=== PATIENT | female | born 1950 | race Caucasian/White ===

== ENCOUNTER → 2017-08-27 | Outpatient (CLI) | payer OTHER ==
--- NOTE | 2017-08-27 12:29 | MAMMOGRAPHY REPORT ---
BILATERAL DIGITAL SCREENING MAMMOGRAM TOMOSYNTHESIS WITH CAD: 08/27/2017 CLINICAL HISTORY: Asymptomatic. Personal history of breast cancer. TECHNIQUE: Breast tomosynthesis in addition to standard 2D mammography was performed. Current study was also evaluated with a Computer Aided Detection (CAD) system. COMPARISON: Comparison is made to exams dated: 09/18/2015 mammogram, 11/15/2013 mammogram, 01/01/2012 mammogram, 03/28/2010 mammogram - [facility], 07/11/2008, and 03/04/2007. BREAST COMPOSITION: There are scattered areas of fibroglandular density in both breasts. FINDINGS: No suspicious masses, calcifications, or areas of architectural distortion are noted in ei ther breast. There has been no significant interval change compared to prior exams. There are stable post surgical changes in the right superior breast from prior lumpectomy. Scattered benign-appearin g calcifications at the lumpectomy bed are stable dating back to at least the 2011 exam. A linear sc ar marker denotes a scar on the right superior breast. IMPRESSION: ACR BI-RADS CATEGORY 2: BENIGN There is no mammographic evidence of malignancy. A 1 year screening mammogram is recommended. The pa tient will receive written notification of the results. Approximately 10% of breast cancers are not detected with mammography. A negative mammographic report should not delay biopsy if a clinically suggestive mass is present. Krysten Holbrook M.D. /:08/27/2017 10:28:03 Truck Safety Inspector: Allyssa CAMPBELL)(Fabiano), [facility] letter sent: Normal 1/2 BI-RADS Code: ACR BI-RADS Category 2: Benign
== END | disposition home or self-care (01) ==
LOC: C.MAMM 09:53
PROVIDERS: ATTEND Obstetrics & Gynecology
DX: Z12.31 Encounter for screening mammogram for malignant neoplasm of breast (principal); Z85.3 Personal history of malignant neoplasm of breast

== ENCOUNTER 2024-04-28 14:52 | Inpatient (IN) ==
--- NOTE | 2024-04-28 15:02 | ED Triage Note ---
Date of Service April 28, 2024 Provider in Triage Author: Bobby Rice History of Present Illness This patient was briefly evaluated while in triage. An abbreviated physical exam was performed. This patient is a 73-year-old Female who presents to the ED for evaluation of perforated colon. Patient has been constipated for the past week. She started to feel sick on Thursday, with increasing lower abdominal pain over the past few days. The patient was seen by her PCP this morning. Patient does not had a colonoscopy in the past 20 years. Physical Exam CONSTITUTIONAL: Healthy and well nourished. Patient appears in mild discom fort. HEENT: No scleral icterus or conjunctival injection. RESPIRATORY: Clear to auscultation bilaterally with no wheezing, crackles, rhonchi or stridor. CARDIOVASCULAR: Regular rate and rhythm with no murmurs, rubs or gallops. GASTROINTESTINAL: Bowel sounds present in all quadrants. Patient has tenderness to palpation of the left lower quadrant. INTEGUMENTARY: No rash or other significant dermatologic conditions noted. HEMATOLOGIC: No ecchymosis or petechiae. PSYCHIATRIC: Positive affect. NEUROLOGIC: No focal neurologic deficits noted. Initial orders for labs and / or imaging were placed and patient was placed in the waiting area until a bed is available. Please see further documentation for the full ED course.
--- NOTE | 2024-04-28 15:13 | Emergency Department Note ---
Impression & Plan Bowel perforation, Pneumoperitoneum, Abdominal pain, MEGAN (acute kidney injury) ED Provider Note NAME: CORINNA BOBBY AGE: 73 SEX: F : 1950 ARRIVES VIA: Walk-In INFORMANT: Patient, ED PROVIDER(S): Kristofer Izaguirre DO CHIEF COMPLAINT: Abdominal pain HPI: The patient is a 73-year-old female who presented to the emergency department for an evaluation of abdominal pain. The patient started with abdominal pain over the course of the last few days. Before that she did have constipation since last Thursday. She also had some URI symptoms. She is been having worsening pain especially over the last 24 hours so she went to see her family doctor. The patient was evaluated by her family doctor and was sent to the hospital for a CAT scan of the abdomen. She was sent directly to the emergency department because of an abnormality on CAT scan. ROS: See above HPI for pertinent positives & negatives. A total of 10 systems reviewed and were otherwise negative. PAST MEDICAL HISTORY: See Below PAST SURGICAL HISTORY: See Below FAMILY HISTORY: See Below SOCIAL HISTORY: See Below HOME MEDICATIONS: See Below ALLERGIES: See Below VITALS: See Below PHYSICAL EXAMINATION: GENERAL: The patient is awake and alert. The patient is very anxious and appears to be uncomfortable. EYES: The conjunctivae are clear. The pupils are round and reactive. EARS, NOSE, MOUTH AND THROAT: The nose is without any evidence of any deformity. NECK: The neck is nontender and supple. RESPIRATORY: Normal respiratory effort is noted there is no evidence of wheezing rhonchi or rales CARDIOVASCULAR: Regular rate and rhythm noted there no murmurs rubs or gallops normal S1 normal S2. GASTROINTESTINAL: The abdomen is distended. There is diffuse guarding to palpation. MUSCULOSKELETAL/EXTREMITIES: There is no evidence of gross deformity full range of motion is noted in the hips and shoulders. SKIN: There is no obvious evidence of any rash. There are no petechiae, pallor or cyanosis noted. NEUROLOGIC: Patient is awake alert and oriented x3 MEDICAL DECISION MAKING: The patient is a 73-year-old female who presented to the emergency department for an evaluation of abdominal pain. The patient was having constipation initially but then had a worsening of her condition over the course the last 48 hours. The patient had a CAT scan which did show signs of bowel perforation. The patient was treated with IV fluids and IV pain medication. She was also started on IV antibiotics. I discussed the patient's laboratory and radiographic studies with her. I discussed her condition with the on-call general surgeon. She was evaluated in the emergency department and was felt to be a good candidate for operative management. The patient was agreeable with this plan. She was taken to the OR by surgery Triage Nursing notes reviewed. Prior medical records reviewed Vital Signs: reviewed and remarkable for no significant abnormalities Differential diagnosis: Etiologies such as appendicitis, diverticulitis, obstruction, inflammatory bowel disease, renal colic, PUD, biliary pathology, pancreatitis, mesenteric ischemia, aortic pathology, infections, genitourinary, UTI, perforated viscus, as well as others were entertained. ER treatment provided: See below Diagnostics interpreted by me: ECG: EKG was obtained in the emergency department. My interpretation is normal sinus rhythm at 91 bpm. There is no ectopy. There is no acute ST segment abnormalities noted. This was compared to a tracing from January 09, 2003. No significant changes were noted. Cardiac Monitoring: An order was placed for continuous cardiac monitoring. The monitor shows a rate of 90 bpm with sinus rhythm. Laboratory studies: As stated above and show below. Imaging studies: See below. Radiographic imaging was reviewed by myself Consultation(s): I discussed this case with Shameka Pavon who is on-call for general surgery. She has agreed to evaluate the patient in the emergency department Past Med/Surg History Problem List (Updated 04/28/24 @ 18:19 by Kristofer Izaguirre DO) MEGAN (acute kidney injury) (Acute) Abdominal pain (Acute) Bowel perforation (Acute) Pneumoperitoneum (Acute) No pertinent past medical history Medical History History of COVID-19 3-4 yr ago. Situational anxiety don't like going to [facility]. History of breast cancer 20 yr ago/ sx , chemo and radiation High blood pressure Surgical History [place] teeth removed History of colonoscopy History of lumpectomy of right breast Social History Smoking Status: Former smoker Tobacco Type: Cigarettes Hx Substance Use: No Preferred Language: Brazilian Communication Ability: Effective Client Specialist Required: No Beliefs That Will Affect Care: None Current Living Situation: Spouse Feels Safe at Home: Yes Assistive Devices: Glasses Allergies Allergies Allergy/AdvReac Type Severity Reaction Status Date / Time latex Allergy Unknown little red Verified 10/06/23 09:28 itchy bumps Penicillins Allergy Unknown i was Verified 10/06/23 09:28 young, think itchy , swelling ? Home Meds Home Medications Medication Instructions Recorded Confirmed hydrochlorothiazide 12.5 mg capsule 12.5 mg PO QAM 03/26/21 10/06/23 zolpidem 5 mg tablet 5 mg PO UD PRN Sleep 03/26/21 10/06/23 apple cider vinegar 300 mg tablet 0 mg PO DAILY 09/24/23 10/06/23 cholecalciferol (vitamin D3) 25 50 mcg PO DAILY 09/24/23 10/06/23 mcg (1,000 unit) tablet (Vitamin D3) cinnamon bark 500 mg capsule 0 mg PO DAILY 09/24/23 10/06/23 (Cinnamon) garlic 400 mg tablet,delayed 0 mg PO DAILY 09/24/23 10/06/23 release magnesium 1 tab PO DAILY 09/24/23 10/06/23 resveratrol 50 mg capsule 0 mg PO DAILY 09/24/23 10/06/23 turmeric 400 mg capsule 500 mg PO DAILY 09/24/23 10/06/23 vitamin B complex 1 cap PO DAILY 09/24/23 10/06/23 vitamin E 400 unit tablet 0 mg PO DAILY 09/24/23 10/06/23 Results & Data (ED) Vital Signs Vital Signs - 24 hr 04/28/24 14:59 04/28/24 15:06 04/28/24 15:56 Temperature 36.6 C Temperature Source Temporal Artery Scan Pulse Rate 85 88 91 H Pulse Rate [Apical] Pulse Rhythm Regular Pulse Rhythm [Apical] Pulse Strength [Apical] Respiratory Rate 16 16 Respiratory Effort / Characteristics Non-Labored Respiratory Depth Normal Respiratory Pattern Blood Pressure 117/69 Blood Pressure [Right Arm] Blood Pressure Mean 85 Blood Pressure Mean [Right Arm] Blood Pressure Position [Right Arm] Pulse Oximetry 98 93 Oxygen Delivery Method Room Air Room Air Sepsis Recent Fever Within 48 Hours No Sepsis New/Unexplained Change in Mental Status N/A Sepsis Action Taken by Nursing No Action Required 04/28/24 15:56 04/28/24 16:15 Temperature 37.1 C Temperature Source Oral Pulse Rate Pulse Rate [Apical] 87 90 Pulse Rhythm Pulse Rhythm [Apical] Regular Regular Pulse Strength [Apical] Normal Normal Respiratory Rate 16 25 H Respiratory Effort / Characteristics Non-Labored Spontaneous Non-Labored Spontaneous Respiratory Depth Normal Normal Respiratory Pattern Regular Regular Blood Pressure Blood Pressure [Right Arm] 138/71 128/71 Blood Pressure Mean Blood Pressure Mean [Right Arm] 93 90 Blood Pressure Position [Right Arm] Sitting Semi-fowlers Pulse Oximetry 94 93 Oxygen Delivery Method Room Air Room Air Sepsis Recent Fever Within 48 Hours Sepsis New/Unexplained Change in Mental Status Sepsis Action Taken by [facility] Medications Current Medication List: was personally reviewed by me Laboratory Data Attestation: I reviewed the patient's lab results. 04/28/24 15:31 04/28/24 15:31 Lab Results 04/28/24 Range/Units 15:31 WBC 7.49 (4.8-10.8) K/ul RBC 4.55 (4.20-5.40) M/uL Hgb 14.0 (12.0-16.0) g/dl Hct 39.3 (37.0-47.0) % MCV 86.4 (80.0-100.0) fL MCH 30.8 (25.0-34.0) pg MCHC 35.6 (32.0-36.0) g/dL RDW Std Deviation 41.1 (36.4-46.3) fL RDW Coeff of Anahi 13.1 (11.5-14.5) % Plt Count 295 (130-400) K/uL MPV 10.6 (9.4-12.4) fL Immature Gran % (Auto) 0.1 % Neut % (Auto) 90.1 % Lymph % (Auto) 4.5 % [place] % (Auto) 4.4 % Eos % (Auto) 0.8 % Baso % (Auto) 0.1 % Neut # (Auto) 6.74 H (1.40-6.50) K/uL Lymph # (Auto) 0.34 L (1.20-3.40) K/uL [place] # (Auto) 0.33 (0.11-0.59) K/uL Eos # (Auto) 0.06 (0.00-0.50) K/uL Baso # (Auto) 0.01 (0.00-0.20) K/uL Immature Gran # (Auto) 0.01 (0.01-0.20) K/uL Toxic Granulation 1+ Toxic Vacuolation 2+ Dohle Bodies 1+ PT 11.7 (9.0-12.0) Seconds INR 1.1 (0.9-1.1) Sodium 126 L (136-145) mmol/L Potassium 3.5 (3.5-5.1) mmol/L Chloride 87 L (98-107) mmol/L Carbon Dioxide 23 (21-32) mmol/L Anion Gap 16 H (3-11) BUN 60 H (6-23) mg/dl Creatinine 3.33 H (0.6-1.2) mg/dl Est Cr Clr Drug Dosing Not Reportable Est GFR ( Amer) 15.1 ml/min Est GFR (Non-Af Amer) 13.0 ml/min BUN/Creatinine Ratio 18.0 (10-20) Glucose 125 H (70-99(Fasting)) mg/dl Calcium 8.2 L (8.6-10.3) mg/dl Total Bilirubin 0.5 (0.2-1.0) mg/dl AST 17 (13-39) U/L ALT 11 (7-52) U/L Alkaline Phosphatase 82 (34-104) U/L Troponin I High Sens 20.5 H (0-14) pg/ml Total Protein 7.0 (6.0-8.3) gm/dl Albumin 3.0 L (3.4-5.0) gm/dl Globulin 4.0 (2.5-4.0) gm/dl Albumin/Globulin Ratio 0.8 L (0.9-2) Lipase < 3 L (11-82) U/L Administered Medications Fentanyl Citrate (Fentanyl Citrate Pf 100 Mcg/2 Ml Vial) 50 mcg IV Q15M PRN PRN Reason: Pain Stop: 05/12/24 15:05 Last Admin: 04/28/24 15:40 Dose: 50 mcg Documented By: KEATON Discontinued Medications Sodium Chloride (Nss) 1,000 mls @ 999 mls/hr IV .Q1H1M STA Stop: 04/28/24 16:06 Last Admin: 04/28/24 15:40 Dose: 999 mls/hr Documented By: KEATON Cefoxitin Sodium (Mefoxin) 2,000 mg in 60 mls @ 100 mls/hr IV NOW STA; Protocol Stop: 04/28/24 15:41 Last Admin: 04/28/24 15:39 Dose: 100 mls/hr Documented By: KEATON Ondansetron HCl (Ondansetron Inj 2 Mg/Ml 2 Ml Vial) 4 mg IV NOW STA Stop: 04/28/24 15:07 Last Admin: 04/28/24 15:40 Dose: 4 mg Documented By: KEATON Discharge Plan Visit Data Chief Complaint: Referred by Doctor Stated Complaint: PERFORATED BOWEL ED Provider: Kristofer Izaguirre Discharge Problem: Bowel perforation, Pneumoperitoneum, Abdominal pain, MEGAN (acute kidney injury) Patient Disposition: Admitted As Inpatient Discharge Instructions Interventions: ED Discharge Assessment Last Done: 04/28/24 16:13 Discharge Problem: Abdominal pain Qualifiers: Abdominal location: generalized Qualified Code(s): R10.84 - Generalized abdominal pain
[2024-04-28] MEDS: cefOXitin 2,000 MG/60 ML BAG IV STA (15:39)
[2024-04-28] MEDS: fentaNYL citrate PF 100 MCG/2 ML VIAL IV PRN (15:40)
[2024-04-28] MEDS: ONDANSETRON INJ 2 MG/ML 2 ML VIAL IV STA (15:40)
[2024-04-28] MEDS: SODIUM CHLORIDE 0.9% 1,000 ML IV STA (15:40)
--- NOTE | 2024-04-28 15:42 | History & Physical Report ---
Date of Service April 28, 2024 Assessment & Plan (1) Pneumoperitoneum: Plan: This is a 73y F with PMH of HTN who presents to the [facility] ED on 04/28/24 with complaints of abdominal pain over the last couple of days. This is associated with chills, nausea/vomiting, and bloating. Her symptoms worsened prompting her to see her PCP today who ordered an outpatient CT scan of the abdomen. The CT a/p was obtained that revealed findings are concerning for bowel perforation with free peritoneal stool and pneumoperitoneum. This is compatible with a colonic perforation, likely in the sigmoid colon. Some fluid collections appear partially encapsulated compatible with early abscess formation. On examination patient's abdomen is distended, diffusely tender, with + guarding. Labs are currently pending. Vital signs are stable. Given history/exam and imaging consistent with concern for pneumoperitoneum with concern for sigmoid perforation we will recommend proceeding with surgical intervention. We will book her for ex-lap, with possible bowel resection, possible ostomy creation, and washout. Patient agreeable with the plan. Keep NPO with IVF and IV abx. Dr. Leigh will obtain consent. History of Present Illness Primary Care Provider: Felix Trejo This is a 73y F with PMH of HTN who presents to the [facility] ED on 04/28/24 with complaints of abdominal pain. Patient reports having constipation issues since Thursday. Then Thursday she developed "flu-like" symptoms associated with chills. Starting 2 days ago she developed abdominal discomfort associated with nausea/vomiting. Her abdominal pain worsened prompting her to see her PCP today who ordered an outpatient CT scan of the abdomen. The CT a/p was obtained that revealed findings are concerning for bowel perforation with free peritoneal stool and pneumoperitoneum. This is compatible with a colonic perforation, likely in the sigmoid colon. Some fluid collections appear partially encapsulated compatible with early abscess formation. The patient reports 9/10 abdominal pain in severity throughout the abdomen at this moment. + chills, no fevers. + nausea/vomiting/bloating. Denies chest pain or SOB. Had a couple BMs this AM. Last colonoscopy was >20 years ago. Never had surgery on abdomen. She has never been diagnosed with diverticulosis or diverticulitis to her knowledge. She had a couple sips of milkshake around 12. Allergies Allergy/AdvReac Type Severity Reaction Status Date / Time latex Allergy Unknown little red Verified 10/06/23 09:28 itchy bumps Penicillins Allergy Unknown i was Verified 10/06/23 09:28 young, think itchy , swelling ? Home Medications Medication Instructions Recorded Confirmed Type hydrochlorothiazide 12.5 mg capsule 12.5 mg PO QAM 03/26/21 10/06/23 History zolpidem 5 mg tablet 5 mg PO UD PRN Sleep 03/26/21 10/06/23 History apple cider vinegar 300 mg tablet 0 mg PO DAILY 09/24/23 10/06/23 History cholecalciferol (vitamin D3) 25 50 mcg PO DAILY 09/24/23 10/06/23 History mcg (1,000 unit) tablet (Vitamin D3) cinnamon bark 500 mg capsule 0 mg PO DAILY 09/24/23 10/06/23 History (Cinnamon) garlic 400 mg tablet,delayed 0 mg PO DAILY 09/24/23 10/06/23 History release magnesium 1 tab PO DAILY 09/24/23 10/06/23 History resveratrol 50 mg capsule 0 mg PO DAILY 09/24/23 10/06/23 History turmeric 400 mg capsule 500 mg PO DAILY 09/24/23 10/06/23 History vitamin B complex 1 cap PO DAILY 09/24/23 10/06/23 History vitamin E 400 unit tablet 0 mg PO DAILY 09/24/23 10/06/23 History Past Med/Surg History Problem List Pneumoperitoneum No pertinent past medical history Medical History History of COVID-19 3-4 yr ago. Situational anxiety don't like going to Dr. oliveros. History of breast cancer 20 yr ago/ sx , chemo and radiation High blood pressure Surgical History [place] teeth removed History of colonoscopy History of lumpectomy of right breast Social History Smoking Status: Former smoker Tobacco Type: Cigarettes Hx Substance Use: No Preferred Language: Guatemalan Communication Ability: Effective Caretaker Resort Required: No Beliefs That Will Affect Care: None Current Living Situation: Spouse Feels Safe at Home: Yes Assistive Devices: Glasses Review of Systems Constitutional: + chills; no fever Respiratory: no dyspnea Cardiovascular: no chest pain Gastrointestinal: + abdominal pain, + bloating, + nausea a nd + vomiting + BM's Physical Exam Physical Exam: awake/alert, appears in pain Constitutional: well developed and well nourished Respiratory: normal respiratory effort Gastrointestinal (Abdomen): Inspection/Auscultation: + abdomen distended Percussion/Palpation: + abdomen tender (ttp throughout abdomen) and + guarding Results & Data Results & Data Vital Signs (Past 12 Hours) Vital Signs Temp Pulse Resp BP Pulse Ox O2 Del Method 04/28/24 14:59 97.9 F 85 16 117/69 98 Room Air Diagnostic Findings CT abd pelvis IV con only CLINICAL HISTORY: ABD PAIN TECHNIQUE: Helical axial images of the abdomen and pelvis were obtained and displayed. Automated dose lowering techniques and/or adjustment according to patient size were utilized for this exam. This exam was performed with intravenous contrast. COMPARISON: None available at the time of this dictation. FINDINGS: Lower chest: Bibasilar atelectasis versus scarring is seen. Liver: Unremarkable. No focal lesions are seen. Gallbladder and biliary tree: No calcified gallstones. Normal caliber wall. No intra- or extrahepatic biliary ductal dilation. Pancreas: Unremarkable, no focal lesions. Spleen: Unremarkable. Adrenals: Unremarkable. Kidneys and ureters: Unremarkable. Bladder: Limited evaluation due to underdistention. Reproductive organs: Unremarkable. Bowel: Numerous diverticula are seen. There are extensive foci of bowel wall thickening in the sigmoid and transverse colon. There is a discontinuity in the sigmoid colon with an adjacent gas and fluid collection. The appendix is normal. Lymph nodes Retroperitoneal: Unremarkable. Pelvic: Unremarkable. Mesenteric: Unremarkable. Peritoneum: There is a partially encapsulated collection in the pelvis containing gas, stool, and fluid measuring approximately 41 x 51 mm, concerning for a perforation. Additional foci of free fluid, pneumoperitoneum, and fecal material are seen throughout the abdomen. Some collections demonstrate partial enhancing mcfarland. Vessels: Unremarkable. Abdominal wall: Unremarkable. Bones: Degenerative changes in the visualized spine. Grade 1 anterolisthesis seen at L5-S1 with bilateral pars defects. IMPRESSION: 1. Findings are concerning for bowel perforation with free peritoneal stool and pneumoperitoneum. This is compatible with a colonic perforation, likely in the sigmoid colon. Some fluid collections appear partially encapsulated compatible with early abscess formation. 2. Bowel wall thickening in the sigmoid and transverse colon. Inflammatory or infectious etiology is favored. 3. Additional findings as above. ACT 112: Negative or not required by law. Electronically signed by: Aquilino Dyer M.D. 04/28/2024 2:38 PM Supervising Physician Co-Signing Physician Notes I personally saw and evaluated the patient with Shameka Pavon PA-C and agree with the assessment and plan. 73 yo female with pneumoperitoneum, likely colonic perforation CT images and results were personally viewed and interpreted by myself She has large volume pneumoperitoneum and likely stool present within the abdominal cavity Will plan on emergent exploratory laparotomy, possible bowel resection, possible ostomy, possible wound vac Consent was obtained, risks were discussed including bleeding, infection, injury to surrounding structures, need for further procedure PG Care Time/CCT Total # of Minutes Spent Total Time Spent with Patient: Total time spent is greater than 50% in coordination of care (as documented) at patient's floor/unit and/or counseling patient: Coding Level of Care Code 16700 INT INP/OBS CARE 3/75MIN Diagnoses Pneumoperitoneum K66.8
[2024-04-28] MEDS ORDERED: LIDOCAINE 2% 2 ML VIAL/AMP(20MG/ML) INFIL ONE (16:00)
[2024-04-28] MEDS ORDERED: fentaNYL citrate PF 100 MCG/2 ML VIAL ONE (16:00)
[2024-04-28] MEDS ORDERED: ONDANSETRON INJ 2 MG/ML 2 ML VIAL ONE (16:00)
[2024-04-28] MEDS ORDERED: PROPOFOL IV EMULSION 10 MG/ML 20 ML VIAL IV ONE (16:00)
[2024-04-28] MEDS ORDERED: DEXAMETHASONE SOD INJ 4 MG/ML VIAL ONE (16:00)
[2024-04-28] MEDS ORDERED: MIDAZOLAM HCL 1 MG/ML 2ML VIAL ONE (16:00)
[2024-04-28 16:08] LABS: Alanine Aminotransferase 11 U/L (7-52); Albumin Globulin Ratio 0.8 (0.9-2); Alkaline Phosphatase 82 U/L (34-104); Anion Gap 16 (3-11); Aspartate Aminotransferase 17 U/L (13-39); Bilirubin,Total 0.5 mg/dl (0.2-1.0); Blood Urea Nitrogen 60 mg/dl (6-23); Calcium 8.2 mg/dl (8.6-10.3); Carbon Dioxide 23 mmol/L (21-32); Chloride 87 mmol/L (98-107); Est GFR (African American) 15.1 ml/min; Glucose 125 mg/dl (70-99(Fasting)); Lipase < 3 U/L (11-82); Potassium 3.5 mmol/L (3.5-5.1); Sodium 126 mmol/L (136-145)
[2024-04-28 16:13] LABS: Basophils # (auto) 0.01 K/uL (0.00-0.20); Basophils % (auto) 0.1 %; Dohle Bodies 1+; Eosinophils # (auto) 0.06 K/uL (0.00-0.50); Eosinophils % (auto) 0.8 %; Hematocrit (blood only) 39.3 % (37.0-47.0); Immature Granulocytes # (auto) 0.01 K/uL (0.01-0.20); Immature Granulocytes % (auto) 0.1 %; Lymphocytes # (auto) 0.34 K/uL (1.20-3.40); Lymphocytes % (auto) 4.5 %; Mean Corpuscular Hemoglobin 30.8 pg (25.0-34.0); Mean Corpuscular Hgb Conc 35.6 g/dL (32.0-36.0); Mean Corpuscular Volume 86.4 fL (80.0-100.0); Mean Platelet Volume 10.6 fL (9.4-12.4); Monocytes # (auto) 0.33 K/uL (0.11-0.59); Monocytes % (auto) 4.4 %; Neutrophils # (auto) 6.74 K/uL (1.40-6.50); Neutrophils % (auto) 90.1 %; Platelet Count 295 K/uL (130-400); RDW Coefficient of Variation 13.1 % (11.5-14.5); RDW Standard Deviation 41.1 fL (36.4-46.3); Red Blood Count 4.55 M/uL (4.20-5.40); Toxic Granulation 1+; Toxic Vacuolation 2+; White Blood Count 7.49 K/ul (4.8-10.8)
[2024-04-28 16:14] LABS: Troponin I High Sensitivity 20.5 pg/ml (0-14)
[2024-04-28 16:15] LABS: INR 1.1 (0.9-1.1); Prothrombin Time 11.7 Seconds (9.0-12.0)
--- NOTE | 2024-04-28 16:16 | Anesthesiology Consultation ---
Date of Service April 28, 2024 Assessment & Plan Chart Review Chart Review: Acceptable Risk for Surgery and Patient NOT seen in Pre Admission Testing Consults Requested none ASA [id number] Proposed Anesthesia Anesthesia Type: General Risk / Benefits Reviewed With: PT / POA / Parent / Guardian, Accepts Plan and Informed Consent Obtained History Surgery Operation Date: 04/28/24 14:40 Proposed Procedures p Exploratory Laparotomy, Bowel Resection, Colostomy Creation - Omar Leigh, DO Height/Weight Height: 5 ft 3 in Allergies Allergy/AdvReac Type Severity Reaction Status Date / Time latex Allergy Unknown little red Verified 10/06/23 09:28 itchy bumps Penicillins Allergy Unknown i was Verified 10/06/23 09:28 young, think itchy , swelling ? Medications Home Medications Medication Instructions Recorded Confirmed Last Taken hydrochlorothiazide 12.5 mg capsule 12.5 mg PO QAM 03/26/21 10/06/23 Unknown zolpidem 5 mg tablet 5 mg PO UD PRN Sleep 03/26/21 10/06/23 Unknown apple cider vinegar 300 mg tablet 0 mg PO DAILY 09/24/23 10/06/23 Unknown cholecalciferol (vitamin D3) 25 50 mcg PO DAILY 09/24/23 10/06/23 Unknown mcg (1,000 unit) tablet (Vitamin D3) cinnamon bark 500 mg capsule 0 mg PO DAILY 09/24/23 10/06/23 Unknown (Cinnamon) garlic 400 mg tablet,delayed 0 mg PO DAILY 09/24/23 10/06/23 Unknown release magnesium 1 tab PO DAILY 09/24/23 10/06/23 Unknown resveratrol 50 mg capsule 0 mg PO DAILY 09/24/23 10/06/23 Unknown turmeric 400 mg capsule 500 mg PO DAILY 09/24/23 10/06/23 Unknown vitamin B complex 1 cap PO DAILY 09/24/23 10/06/23 Unknown vitamin E 400 unit tablet 0 mg PO DAILY 09/24/23 10/06/23 Unknown Active Medications Generic Name Dose Route Start Last Admin Trade Name Freq PRN Reason Stop Dose Admin Fentanyl Citrate 50 mcg 04/28/24 15:06 04/28/24 15:40 Fentanyl Citrate Pf 100 Mcg/2 Ml Vial IV 05/12/24 15:05 50 mcg Q15M PRN Administration Pain NPO Date Last Intake of Fluids: 04/28/24 Time Last Intake of Fluids: 12:00 Date Last Intake of Solids: 04/28/24 Time Last Intake of Solids: 12:00 Past Medical History Medical History History of COVID-19 3-4 yr ago. Situational anxiety don't like going to Dr. oliveros. History of breast cancer 20 yr ago/ sx , chemo and radiation High blood pressure Exercise / Class Metabolic Activity II 4-5 Yardwork/Stairs/Walk up hill Past Surgical History Surgical History [place] teeth removed History of colonoscopy History of lumpectomy of right breast Past Anesthesia History No Hx of Anesthesia Complications and No Family Hx of Anesthesia Complications History of PONV No Hx of PONV and No Hx of Motion Sickness Social History Smoking Status: Former smoker Alcohol type: wine and hard liquor alcohol intake frequency: a few times a week Hx Substance Use: No substance use type: does not use Review of Systems ROS Unobtainable: All systems reviewed & are unremarkable except as noted in HPI & below Physical Exam Vital Signs Last Vital Signs Temp 36.6 C 04/28/24 14:59 Pulse 85 04/28/24 14:59 Resp 16 04/28/24 14:59 BP 117/69 04/28/24 14:59 Pulse Ox 98 04/28/24 14:59 O2 Del Method Room Air 04/28/24 14:59 ENMT Mouth: no TMJ abnormality Thyromental Distance: > or= 3.5 Finger Breadths Mallampati Class: II Neck normal visual inspection and trachea midline; neck extension not limited Respiratory normal respiratory effort Auscultation: lungs clear to auscultation bilaterally Cardiovascular Rate/Rhythm: regular rate and regular rhythm Heart Sounds: no murmur Musculoskeletal Spine: normal cervical ROM Extremities: full ROM of extremities Neurologic moves all extremities Psychiatric Orientation: alert and oriented x 3 Testing Laboratory Results Laboratory Tests 04/28/24 15:31 WBC 7.49 Hgb 14.0 Hct 39.3 Plt Count 295 Sodium 126 L Potassium 3.5 Chloride 87 L Carbon Dioxide 23 BUN 60 H Creatinine 3.33 H Glucose 125 H Electrocardiogram Date: 04/28/24 Findings: + NSR @
[2024-04-28] MEDS ORDERED: SUCCINYLCHOLINE CHLORIDE 20 MG/ML 10 ML VIAL IV ONE (16:19)
[2024-04-28] MEDS ORDERED: LARYING-O-JET KIT (LTA) ONE (16:19)
[2024-04-28] MEDS ORDERED: ROCURONIUM BROMIDE 10 MG/ML 5 ML VIAL IV ONE (16:19)
[2024-04-28] MEDS ORDERED: DROPERIDOL 5 MG/2 ML VIAL ONE (16:20)
[2024-04-28] MEDS ORDERED: ACETAMINOPHEN 1000 MG/100 ML IV IV ONE (16:27)
[2024-04-28] MEDS ORDERED: HYDROmorphone INJ 1 MG/ML SYRINGE IV PRN (16:28)
[2024-04-28] MEDS ORDERED: ONDANSETRON INJ 2 MG/ML 2 ML VIAL IV PRN (16:28)
[2024-04-28] MEDS ORDERED: PROMETHAZINE HCL 6.25 MG in SODIUM CHLORIDE 0.9% 50 ML IV PRN (16:28)
[2024-04-28] MEDS ORDERED: ePHEDrine sulfate 50 MG/ML AMP IV PRN (16:28)
[2024-04-28] MEDS ORDERED: fentaNYL citrate PF 100 MCG/2 ML VIAL IV PRN (16:28)
[2024-04-28] MEDS ORDERED: ATROPINE SULFATE 0.1 MG/ML 10ML SYR IV PRN (16:28)
[2024-04-28] MEDS ORDERED: PHENYLEPHRINE HCL 10 MG/ML VIAL ONE (16:54)
[2024-04-28] MEDS ORDERED: PHENYLEPHRINE 100MCG/ML 10ML SYR IV ONE (16:54)
[2024-04-28] MEDS ORDERED: ePHEDrine sulfate 50 MG/5 ML SYR ONE (16:54)
[2024-04-28] MEDS ORDERED: HYDROmorphone INJ 1 MG/ML SYRINGE ONE (16:55)
[2024-04-28] MEDS ORDERED: SUGAMMADEX SODIUM 200 MG/2 ML VIAL IV ONE (17:11)
[2024-04-28] MEDS ORDERED: KETOROLAC 30 MG/ML VIAL ONE (17:21)
[2024-04-28] MEDS ORDERED: cefOXitin SOD 1,000 MG VIAL ONE (18:49)
--- NOTE | 2024-04-28 19:18 | Post Operative Brief Note ---
PG Immediate Post Op with CF Date of Surgery April 28, 2024 Pre & Post Diagnosis Operation Date: 04/28/24 14:40 Pre-Op Diagnosis: Perforated Bowel Post-Op Diagnosis: Perforation of distal sigmoid colon/proximal rectum, feculent peritonitis I identified the patient and participated in the time-out.: Yes Procedure Operation Date: 04/28/24 14:40 Actual Procedures p Exploratory Laparotomy, partial colectomy, partial omenectomy, appendectomy (Not Applicable) - Omar Leigh DO Surgeon Omar Leigh DO Loop Tacker Mallroy BENTLEY Estimated Blood Loss 50 Findings See Below Perforation of distal sigmoid/proximal rectum with feculent peritonitis Inflammed appendiceal tip Specimens Specimen Description: Culture: 1. Peritoneal Fluid Pathology: A. Proximal Rectum B. Omentum C. Appendix D. Portion of Sigmoid Colon Drains Aquino Catheter Anesthesia Type General Complications none Disposition Disposition: Recovery Room
--- NOTE | 2024-04-28 19:19 | Operative Report ---
PG Post Operative Report Pre & Post Diagnosis Operation Date: 04/28/24 14:40 Pre-Op Diagnosis: Perforated Bowel Post-Op Diagnosis: Perforation of distal sigmoid/proximal rectum with feculent peritonitis I identified the patient and participated in the time-out.: Yes Procedure Operation Date: 04/28/24 14:40 Actual Procedures p Exploratory Laparotomy, partial colectomy, partial omenectomy, appendectomy, placement of Abthera wound vac (Not Applicable) - Omar Leigh DO Surgeon Omar Leigh DO Wood Coater Mallory BENTLEY Estimated Blood Loss 50 Findings See Below Perforation of distal sigmoid/proximal rectum with feculent peritonitis Inflammed appendiceal tip Specimens Culture: 1. Peritoneal Fluid Pathology: A. Proximal Rectum B. Omentum C. Appendix D. Portion of Sigmoid Colon Drains Abthera Wound VAC Anesthesia Type General Complications none Disposition Disposition: Recovery Room Indications 73-year-old female with pneumoperitoneum and concern for a perforated colon Description of Procedure The patient was brought to the OR and placed in the supine position with both ar ms abducted. At this time she underwent general endotracheal anesthesia without any problems. She was given appropriate pre-operative antibiotics. Her abdomen was prepped and draped in the usual sterile fashion. Timeout was called. The procedure was verified as Exploratory laparotomy, possible bowel resection, possible ostomy, possible wound vac. Surgical, anesthesia and nursing teams agreed and the procedure was begun. A standard midline incision was made using a #10 blade scalpel. This was carried down to the fascia using electrocautery. The midline fascia was then incised with electrocautery. The peritoneum was then entered bluntly. The incision was then opened up through its entirety. The omentum was encountered and was firmly in place over top of the small bowel. This was bluntly peeled back and placed superiorly. I next placed my hand in the pelvis and gently freed up small bowel that was adhesed to the sigmoid colon and the rectum. Feculent peritonitis was encountered. The abdomen was irrigated to aid in cleaning up the fecal material to help with visualization. The entire lower half of the abdomen had pockets of feculent peritonitis. This was all irrigated using warm saline. Once I was able to visualize the sigmoid colon and rectum, I was able to mobilize the sigmoid colon along the white line of Toldt proximally. I then freed up the lateral portions of the rectum as well. There was a 1 cm perforation of the distal sigmoid/proximal rectum visualized. The tissue was extremely thickened. I did have to transect the distal sigmoid with a black load AVINASH 80 mm stapler after making a hole in the mesentery with hemostat. At this point the perforation was still about 2 to 3 cm distal to the staple line. I was able to take the mesentery of the proximal rectum using the LigaSure device up to the point of perforation. I was then able to use another black load AVINASH 80 mm stapler just distal to the perforation to transect a portion of the proximal rectum. The rectal stump appeared healthy. At this time I did continue to free up the sigmoid ascending colon along the lateral white line of Toldt. The ureter was identified and preserved. At this time we did run the small bowel from the ligament of Treitz to the cecum. This all appeared healthy but we did find small pockets of purulent fluid and irrigated these. The distal half of the appendix was thickened and inflamed and the decision was made to perform an appendectomy. A window was made at the base of the appendix and right ankle. A 45 mm purple load stapler was fired across the base of the appendix. The LigaSure device was then to take the mesoappendix. At this time I did resect a portion of the sigmoid colon that appeared thickened and inflamed back to a healthy portion of descending colon. This was done using a AVINASH 80 mm blue load. The LigaSure was then used to take the sigmoid mesentery. This was passed off as a portion of sigmoid colon. The abdomen was then irrigated with multiple liters of warm saline. At this time due to the feculent peritonitis the decision was made to place an ABThera wound VAC and return to the OR tomorrow for a washout and to create a colostomy at that time. The inner sponge was placed into the abdomen and the blue foam sponge was placed within the wound and stapled to the skin. All needle and sponge counts were correct x 2. At this point the patient was kept intubated and sedated, and transported to PACU in stable condition. The nurse practitioner was present and scrubbed for the entirety of the case. She was critical in positioning the patient, prepping and draping, retraction and exposure, placement of the wound VAC. I attest to the content of the Intraoperative Record and any orders documented therein. Any exceptions are noted below.
--- NOTE | 2024-04-28 19:44 | Anesthesiology Progress Note ---
Date of Service April 28, 2024 Anesthesia Post Procedure Vital Signs Vital Signs: Temp Pulse Pulse Resp BP BP Pulse Ox 04/28/24 19:32 91 H 20 93/69 L 98 04/28/24 19:22 37 C 86 20 119/66 100 04/28/24 16:15 37.1 C 90 25 H 128/71 93 04/28/24 15:56 87 16 138/71 94 04/28/24 15:56 91 H 04/28/24 15:06 88 16 93 04/28/24 14:59 36.6 C 85 16 117/69 98 O2 Del Method FiO2 04/28/24 19:32 Mechanical Vent 100 04/28/24 19:22 Mechanical Vent 100 04/28/24 16:15 Room Air 04/28/24 15:56 Room Air 04/28/24 15:56 04/28/24 15:06 Room Air 04/28/24 14:59 Room Air Pain Intensity Abdomen: Pain Intensity: 6 Transfer of Care Handoff Completed per policy Notes Mental Status: alert / awake / arousable and see notes below Patient Amnestic to Procedure: Yes Nausea / Vomiting: adequately controlled Pain: adequately controlled Airway Patency, RR, SpO2: stable & adequate BP & HR: stable & adequate Hydration State: stable & adequate Anesthetic Complications: no major complications apparent and Pt Satisfied with anesthetic care Notes: Decision made intraop to leave abdomen open and utilize wound vac. Plan to keep patient intubated and transport to ICU for further care. hemodynamically stable on transport. ETT intact and BP stable at handover.
[2024-04-28] MEDS ORDERED: HYDROmorphone INJ 0.5 MG/0.5 ML SYR IV PRN (20:01)
[2024-04-28] MEDS ORDERED: PROPOFOL BOLUS FROM BAG IV PRN (20:05)
[2024-04-28] MEDS ORDERED: fentaNYL BOLUS from BAG IV PRN (20:05)
[2024-04-28] MEDS ORDERED: STAT IV Infusion **Titration per Protocol STA (20:05)
[2024-04-28 20:06] LABS: iSTAT Allen Test Pass; iSTAT Art Bld Gas pCO2 Correct 36 mmHg (35-46); iSTAT Art Bld Gas pH Corrected 7.292 (7.35-7.45); iSTAT Arterial Blood Gas HCO3 17 meg/L (19-24); iSTAT Arterial Blood Gas pCO2 36 mmHg (35-46); iSTAT Arterial Blood Gas pH 7.29 (7.35-7.45); iSTAT Arterial Blood Gas pO2 89 mmHg (80-95); iSTAT Arterial Blood Gas pO2 C 87; iSTAT Carbon Dioxide 18 mmol/L (24-31); iSTAT FiO2 45 %; iSTAT Hematocrit 42 % (37-47); iSTAT Hemoglobin 14.3 g/dl (12.0-16.0); iSTAT Potassium 3.1 mmol/L (3.3-5.0); iSTAT Site R Radial; iSTAT Sodium 129 mmol/L (135-144)
[2024-04-28] MEDS: propofoL 1,000 MG/100 ML VIAL IV SCH (20:48)
[2024-04-28 21:06] LABS: Troponin I High Sensitivity 13.5 pg/ml (0-14)
--- NOTE | 2024-04-28 21:14 | Critical Care Consultation ---
Date of Consultation April 28, 2024 Assessment & Plan (1) Sepsis: Reason Critically Ill: 73-year-old female with past medical history of hypertension presents to the ICU following bowel perforation, with feculent peritonitis, now postop for ex lap with partial colectomy, with open abdomen. She remains intubated with open abdomen and plan to undergo additional colostomy tomorrow. Neuro - Sedation: Propofol, fentanyl Cardiac - HTNhydrochlorothiazide on hold. Currently hemodynamically stable without vasopressor support. Patient high risk for developing septic shock, and may need vasopressor support given extents of fecal peritonitis. Will monitor closely in ICU, continuous telemetry monitoring. Respiratory - Mechanically ventilatedNo previous pulmonary history. patient mechanically ventilated postop with plan to go additional procedure tomorrow. No significant hypoxia or acid-base disturbance. Monitor continuously on pulse ox and end- tidal CO2. Follow-up ABG and chest x-ray in a.m. Wean vent as tolerated GI - N.p.o. Bowel perforation/feculent peritonitiss/p partial colectomy, With open abdomen and wound vac w/ plan to undergo additional colostomy. -Management per general surgery. - See ID for treatment of Peritonitis/sepsis below RENAL/LYTES - AKIexpect prerenal in the setting of sepsis/hypotension. Initial creatinine 3.33 with no previous study to compare. - Avoid nephrotoxins and renally adjust medications -Maintain MAP greater than 65 - Continue fluid resuscitation with IV fluids - Monitor routine BMPs - Foleystrict I's and O's ENDO - No history of diabetes or thyroid disease. ICU hyperglycemic protocol HEME - H&H stable, monitor routine CBC ID - Sepsis secondary to bowel perforation/'s fecal peritonitis No significant leukocytosis, currently afebrile. - Peritoneal fluid cultures pending -Continue with empiric coverage with Zosyn. LINES/IV ACCESS - Peripheral IVs, ET tube DVT PROPHYLAXIS - SCDs, hold anticoagulation following surgical procedure I have personally spent 47 minutes of critical care time in the direct managemen t of this patient. This is a life/limb threatening event. This includes time spent evaluating patient, direct bedside care, chart review, placing orders, interpretation of diagnostic studies, discussion with consultants, patient, and family members, as well as other required patient management activities. This time is exclusive of all separately billable procedures, and teaching time and separate from and in addition to any other critical care service time. Thank you for allowing us to participate in the care of this patient. Please refer to my attending physician's documentation for any further recommendations. (2) Bowel perforation: (3) MEGAN (acute kidney injury): (4) High blood pressure: History of Present Illness Attending Physician: Omar Leigh DO History of Present Illness Patient is a 73-year-old female who presents to the emergency department earlier this evening with complaints of abdominal pain progressively worsening over the past few days, and burning with urination. She presented to her primary care physician, who transferred her to the emergency department for CT abdomen and pelvis. In the emergency department she underwent CT abdomen and pelvis which showed findings concerning for bowel perforation with free peritoneal stool and, With bowel wall thickening in the sigmoid and transverse colon consistent with inflammatory or infectious etiology. Patient was taken emergently for surgical intervention via general surgery, and was found to have perforation of distal sigmoid colon/proximal rectum, feculent peritonitis. She underwent exploratory laparotomy with partial colectomy, omenectomy w/ wound vac and currently presents to the ICU with open abdomen. Patient remains intubated, with plan to undergo additional surgical intervention with colostomy in the morning. Allergies Allergy/AdvReac Type Severity Reaction Status Date / Time latex Allergy Unknown little red Verified 10/06/23 09:28 itchy bumps Penicillins Allergy Unknown i was Verified 10/06/23 09:28 young, think itchy , swelling ? Home Medications Medication Instructions Recorded Confirmed Type hydrochlorothiazide 12.5 mg capsule 12.5 mg PO QAM 03/26/21 10/06/23 History zolpidem 5 mg tablet 5 mg PO UD PRN Sleep 03/26/21 10/06/23 History apple cider vinegar 300 mg tablet 0 mg PO DAILY 09/24/23 10/06/23 History cholecalciferol (vitamin D3) 25 50 mcg PO DAILY 09/24/23 10/06/23 History mcg (1,000 unit) tablet (Vitamin D3) cinnamon bark 500 mg capsule 0 mg PO DAILY 09/24/23 10/06/23 History (Cinnamon) garlic 400 mg tablet,delayed 0 mg PO DAILY 09/24/23 10/06/23 History release magnesium 1 tab PO DAILY 09/24/23 10/06/23 History resveratrol 50 mg capsule 0 mg PO DAILY 09/24/23 10/06/23 History turmeric 400 mg capsule 500 mg PO DAILY 09/24/23 10/06/23 History vitamin B complex 1 cap PO DAILY 09/24/23 10/06/23 History vitamin E 400 unit tablet 0 mg PO DAILY 09/24/23 10/06/23 History Patient History Medical History History of COVID-19 3-4 yr ago. Situational anxiety don't like going to Dr. oliveros. History of breast cancer 20 yr ago/ sx , chemo and radiation High blood pressure Surgical History [place] teeth removed History of colonoscopy History of lumpectomy of right breast Social History Smoking Status: Former smoker Tobacco Type: Cigarettes Hx Substance Use: No Preferred Language: Guyanese Communication Ability: Effective Church History Professor Required: No Beliefs That Will Affect Care: None Current Living Situation: Spouse Feels Safe at Home: Yes Assistive Devices: Glasses Review of Systems Review of Systems: Unobtainable due to cognitive status and Unobtainable due to endotracheal tube Physical Exam Constitutional: average body habitus and + mechanically ventilated Eyes: PERRL, conjunctivae normal, anicteric sclerae ENMT: external ear and nose normal, oropharynx normal Neck: trachea midline, no thyromegaly Respiratory: normal respiratory effort, lungs clear to auscultation Cardiovascular: RRR, no murmur, no edema Heart Sounds: normal S1 and normal S2; no murmur Extremities: no edema Gastrointestinal (Abdomen): normal bowel sounds, soft, nontender, no hepatosplenomegaly Musculoskeletal: no cyanosis or clubbing, extremities motor strength 5/5 Skin: no rashes, warm and dry Neurologic: Unable to assess due to sedation Psychiatric: Unable to assess due to sedation Genitourinary: Indwelling Aquino catheter present, urine yellow and clear Results & Data Results & Data Vital Signs (Past 12 Hours) Vital Signs Temp Pulse Pulse Resp BP BP Pulse Ox 04/28/24 19:32 91 H 20 93/69 L 98 04/28/24 19:22 37 C 86 20 119/66 100 04/28/24 16:15 37.1 C 90 25 H 128/71 93 04/28/24 15:56 87 16 138/71 94 04/28/24 15:56 91 H 04/28/24 15:06 88 16 93 04/28/24 14:59 36.6 C 85 16 117/69 98 O2 Del Method FiO2 04/28/24 19:32 Mechanical Vent 100 04/28/24 19:22 Mechanical Vent 100 04/28/24 16:15 Room Air 04/28/24 15:56 Room Air 04/28/24 15:56 04/28/24 15:06 Room Air 04/28/24 14:59 Room Air Diagnostic Findings CT abd pelvis IV con only CLINICAL HISTORY: ABD PAIN TECHNIQUE: Helical axial images of the abdomen and pelvis were obtained and displayed. Automated dose lowering techniques and/or adjustment according to patient size were utilized for this exam. This exam was performed with intravenous contrast. COMPARISON: None available at the time of this dictation. FINDINGS: Lower chest: Bibasilar atelectasis versus scarring is seen. Liver: Unremarkable. No focal lesions are seen. Gallbladder and biliary tree: No calcified gallstones. Normal caliber wall. No intra- or extrahepatic biliary ductal dilation. Pancreas: Unremarkable, no focal lesions. Spleen: Unremarkable. Adrenals: Unremarkable. Kidneys and ureters: Unremarkable. Bladder: Limited evaluation due to underdistention. Reproductive organs: Unremarkable. Bowel: Numerous diverticula are seen. There are extensive foci of bowel wall thickening in the sigmoid and transverse colon. There is a discontinuity in the sigmoid colon with an adjacent gas and fluid collection. The appendix is normal. Lymph nodes Retroperitoneal: Unremarkable. Pelvic: Unremarkable. Mesenteric: Unremarkable. Peritoneum: There is a partially encapsulated collection in the pelvis containing gas, stool, and fluid measuring approximately 41 x 51 mm, concerning for a perforation. Additional foci of free fluid, pneumoperitoneum, and fecal material are seen throughout the abdomen. Some collections demonstrate partial enhancing mcfarland. Vessels: Unremarkable. Abdominal wall: Unremarkable. Bones: Degenerative changes in the visualized spine. Grade 1 anterolisthesis seen at L5-S1 with bilateral pars defects. IMPRESSION: 1. Findings are concerning for bowel perforation with free peritoneal stool and pneumoperitoneum. This is compatible with a colonic perforation, likely in the sigmoid colon. Some fluid collections appear partially encapsulated compatible with early abscess formation. 2. Bowel wall thickening in the sigmoid and transverse colon. Inflammatory or infectious etiology is favored. 3. Additional findings as above. ACT 112: Negative or not required by law. Electronically signed by: Aquilino Dyer M.D. 04/28/2024 2:38 PM Coding Level of Care Code 96079 CRITICAL CARE 1ST 30-74M Diagnoses Sepsis A41.9 Bowel perforation K63.1 MEGAN (acute kidney injury) N17.9 High blood pressure I10
[2024-04-28] MEDS: LACTATED RINGER'S 1,000 ML IV SCH (21:15)
[2024-04-28] MEDS: PIPERACILLIN/TAZOBACTAM 4.5 GM in DEXTROSE 5% MINI-B 100 ML IV ONE (21:20)
[2024-04-28 21:34] LABS: Albumin Globulin Ratio 0.8 (0.9-2); Albumin Level 2.2 gm/dl (3.4-5.0); BUN Creatinine Ratio 19.2 (10-20); Bilirubin,Total 0.5 mg/dl (0.2-1.0); Creatinine Clr Calc Pharmacy 17.4 ml/min; Est GFR (African American) 20.3 ml/min; Est GFR (Non-African American) 17.5 ml/min; Globulin 2.8 gm/dl (2.5-4.0); Hematocrit (blood only) 43.2 % (37.0-47.0); Hemoglobin 14.8 g/dl (12.0-16.0); Magnesium 1.9 mg/dl (1.7-2.4); Mean Corpuscular Hemoglobin 30.6 pg (25.0-34.0); Mean Corpuscular Hgb Conc 34.3 g/dL (32.0-36.0); Mean Corpuscular Volume 89.4 fL (80.0-100.0); Platelet Count 264 K/uL (130-400); Potassium 3.1 mmol/L (3.5-5.1); RDW Coefficient of Variation 13.5 % (11.5-14.5); RDW Standard Deviation 44.4 fL (36.4-46.3); Red Blood Count 4.83 M/uL (4.20-5.40); White Blood Count 4.12 K/ul (4.8-10.8)
[2024-04-28 22:06] LABS: Basophils # (auto) 0.09 K/uL (0.00-0.20); Basophils % (auto) 2.2 %; Dohle Bodies 1+; Echinocytes 1+; Eosinophils # (auto) 0.01 K/uL (0.00-0.50); Eosinophils % (auto) 0.2 %; Immature Granulocytes # (auto) 0.02 K/uL (0.01-0.20); Immature Granulocytes % (auto) 0.5 %; Lymphocytes # (auto) 0.33 K/uL (1.20-3.40); Monocytes # (auto) 0.35 K/uL (0.11-0.59); Monocytes % (auto) 8.5 %; Neutrophils # (auto) 3.32 K/uL (1.40-6.50); Neutrophils % (auto) 80.6 %; Toxic Granulation 2+; Toxic Vacuolation 1+
[2024-04-28] MEDS: fentaNYL citrate 2,500 MCG/250 ML BAG IV SCH (22:39)
[2024-04-28] MEDS: PLASMA-LYTE A 1,000 ML IV SCH (22:50)
[2024-04-28] MEDS: POTASSIUM CHLORIDE / WTR 10 MEQ/100 ML PLCT IV SCH (22:58)
[2024-04-28] MEDS: MAGNESIUM SULFATE / D5W 1 GM/100 ML BAG IV ONE (22:58)
[2024-04-28] MEDS: PLASMA-LYTE A 500 ML IV ONE (23:07)
[2024-04-29 00:16] LABS: Appearance Urine Clear (Clear); Bacteria Urine Automated None Seen (None Seen); Bilirubin Urine Negative (Negative); Blood Urine 2+ (Negative); Color Urine Yellow; Glucose Urine UA Negative (Negative); Ketones Urine Negative (Negative); Leukocyte Esterase Urine Negative (Negative); Nitrite Urine Negative (Negative); Protein Urine 1+ (Negative); Specific Gravity Urine 1.036 (1.000-1.030); Urobilinogen Urine Negative (Negative); WBC Urine Automated 0-5 /hpf (0-5); pH Urine 5.5 (4.5-7.5)
[2024-04-29] MEDS ORDERED: PIPERACILLIN/TAZOBACTAM 4.5 GM in DEXTROSE 5% MINI-B 100 ML IV SCH (02:00)
[2024-04-29] MEDS: PIPERACILLIN/TAZOBACTAM 4.5 GM in DEXTROSE 5% MINI-B 100 ML IV SCH ×2 (03:21→12:15)
[2024-04-29 05:34] LABS: iSTAT Allen Test Pass; iSTAT Art Bld Gas pCO2 Correct 34 mmHg (35-46); iSTAT Art Bld Gas pH Corrected 7.329 (7.35-7.45); iSTAT Arterial Blood Gas HCO3 18 meg/L (19-24); iSTAT Arterial Blood Gas pCO2 35 mmHg (35-46); iSTAT Arterial Blood Gas pH 7.33 (7.35-7.45); iSTAT Arterial Blood Gas pO2 92 mmHg (80-95); iSTAT Arterial Blood Gas pO2 C 91; iSTAT Carbon Dioxide 19 mmol/L (24-31); iSTAT FiO2 40 %; iSTAT Hematocrit 42 % (37-47); iSTAT Hemoglobin 14.3 g/dl (12.0-16.0); iSTAT Potassium 3.8 mmol/L (3.3-5.0); iSTAT Site L Radial; iSTAT Sodium 130 mmol/L (135-144)
[2024-04-29 06:59] LABS: Basophils # (auto) 0.01 K/uL (0.00-0.20); Basophils % (auto) 0.1 %; Dohle Bodies 1+; Eosinophils # (auto) 0.02 K/uL (0.00-0.50); Eosinophils % (auto) 0.2 %; Hematocrit (blood only) 41.2 % (37.0-47.0); Hemoglobin 14.3 g/dl (12.0-16.0); Immature Granulocytes # (auto) 0.02 K/uL (0.01-0.20); Immature Granulocytes % (auto) 0.2 %; Lymphocytes # (auto) 0.52 K/uL (1.20-3.40); Lymphocytes % (auto) 5.7 %; Mean Corpuscular Hemoglobin 30.6 pg (25.0-34.0); Mean Corpuscular Hgb Conc 34.7 g/dL (32.0-36.0); Mean Corpuscular Volume 88.2 fL (80.0-100.0); Mean Platelet Volume 10.9 fL (9.4-12.4); Monocytes # (auto) 0.67 K/uL (0.11-0.59); Monocytes % (auto) 7.4 %; Neutrophils # (auto) 7.82 K/uL (1.40-6.50); Neutrophils % (auto) 86.4 %; Platelet Count 273 K/uL (130-400); Poikilocytosis Present; Polychromasia 1+; RDW Coefficient of Variation 13.8 % (11.5-14.5); RDW Standard Deviation 44.5 fL (36.4-46.3); Red Blood Count 4.67 M/uL (4.20-5.40); Toxic Granulation 1+; Toxic Vacuolation 1+; White Blood Count 9.06 K/ul (4.8-10.8)
--- NOTE | 2024-04-29 07:04 | Anesthesiology Consultation ---
Date of Service April 29, 2024 Assessment & Plan (1) Encounter for pre-operative examination: Chart Review Chart Review: Acceptable Risk for Surgery and Patient NOT seen in Pre Admission Testing Consults Requested none History Surgery Operation Date: 04/28/24 14:40 Proposed Procedures p Exploratory Laparotomy, Bowel Resection, Colostomy Creation - Omar Leigh DO Operation Date: 04/29/24 07:00 Proposed Procedures p Re-exploration Laparotomy, Abdominal Washout, Colostomy Creation - Omar Leigh DO Height/Weight Height: 5 ft 3 in Weight: 70.1 kg Allergies Allergy/AdvReac Type Severity Reaction Status Date / Time latex Allergy Unknown little red Verified 10/06/23 09:28 itchy bumps Penicillins Allergy Unknown i was Verified 10/06/23 09:28 young, think itchy , swelling ? Medications Home Medications Medication Instructions Recorded Confirmed Last Taken hydrochlorothiazide 12.5 mg capsule 12.5 mg PO QAM 03/26/21 10/06/23 Unknown zolpidem 5 mg tablet 5 mg PO UD PRN Sleep 03/26/21 10/06/23 Unknown apple cider vinegar 300 mg tablet 0 mg PO DAILY 09/24/23 10/06/23 Unknown cholecalciferol (vitamin D3) 25 50 mcg PO DAILY 09/24/23 10/06/23 Unknown mcg (1,000 unit) tablet (Vitamin D3) cinnamon bark 500 mg capsule 0 mg PO DAILY 09/24/23 10/06/23 Unknown (Cinnamon) garlic 400 mg tablet,delayed 0 mg PO DAILY 09/24/23 10/06/23 Unknown release magnesium 1 tab PO DAILY 09/24/23 10/06/23 Unknown resveratrol 50 mg capsule 0 mg PO DAILY 09/24/23 10/06/23 Unknown turmeric 400 mg capsule 500 mg PO DAILY 09/24/23 10/06/23 Unknown vitamin B complex 1 cap PO DAILY 09/24/23 10/06/23 Unknown vitamin E 400 unit tablet 0 mg PO DAILY 09/24/23 10/06/23 Unknown Active Medications Generic Name Dose Route Start Last Admin Trade Name Freq PRN Reason Stop Dose Admin Propofol 1,000 mg in 100 mls @ 9.798 mls/hr 04/28/24 20:15 04/29/24 06:44 Diprivan IV 05/01/24 20:14 25 mcg/kg/min .[id number] ROLANDA 9.8 mls/hr Titration Protocol 25 MCG/KG/MIN Fentanyl Citrate 2,500 mcg in 250 mls @ 12.5 mls/hr 04/28/24 20:15 04/29/24 05:38 Fentanyl Citrate IV 05/12/24 20:14 125 mcg/hr .Q20H ROLANDA 12.5 mls/hr Titration Protocol 125 MCG/HR Piperacillin Sod/Tazobactam 100 mls @ 25 mls/hr 04/29/24 04:00 04/29/24 03:21 Sod 4.5 gm/ Dextrose IV 05/09/24 03:59 25 mls/hr Q12H ROLANDA Administration Protocol Parenteral Electrolytes 1,000 mls @ 125 mls/hr 04/28/24 22:00 04/29/24 03:21 Plasma-Lyte A Ph 7.4 IV 05/28/24 21:59 125 mls/hr .Q8H ROLANDA Administration NPO Date Last Intake of Fluids: 04/28/24 Time Last Intake of Fluids: 12:00 Date Last Intake of Solids: 04/28/24 Time Last Intake of Solids: 12:00 Last Intake of Solids Comment: "milkshake" Past Medical History Medical History History of COVID-19 3-4 yr ago. Situational anxiety don't like going to Dr. oliveros. History of breast cancer 20 yr ago/ sx , chemo and radiation Past Surgical History Surgical History [facility] teeth removed History of colonoscopy History of lumpectomy of right breast Social History Smoking Status: Former smoker Smoking End Date: 10+ years ago Hx Alcohol Use: Yes Alcohol type: beer and hard liquor alcohol intake frequency: a few times a month Hx Substance Use: No substance use type: does not use Physical Exam Vital Signs Last Vital Signs Temp 98.2 F 04/29/24 05:01 Pulse 96 H 04/29/24 05:01 Resp 22 04/29/24 05:01 BP 86/61 L 04/29/24 05:01 Pulse Ox 97 04/29/24 05:01 O2 Del Method Mechanical Vent 04/28/24 20:00 O2 Flow Rate 40 05/30/24 20:00 FiO2 40 04/29/24 04:00 Testing Laboratory Results 04/29/24 05:39 PT 11.7 Seconds (9.0-12.0) 04/28/24 15:31 INR 1.1 (0.9-1.1) 04/28/24 15:31 Urine Color Yellow 04/28/24 23:47 Urine Appearance Clear (Clear) 04/28/24 23:47 Urine pH 5.5 (4.5-7.5) 04/28/24 23:47 Ur Specific [place] 1.036 (1.000-1.030) H 04/28/24 23:47 Urine Protein 1+ (Negative) H 04/28/24 23:47 Urine Glucose (UA) Negative (Negative) 04/28/24 23:47 Urine Ketones Negative (Negative) 04/28/24 23:47 Urine Nitrite Negative (Negative) 04/28/24 23:47 Ur Leukocyte Esterase Negative (Negative) 04/28/24 23:47 Urine WBC (Auto) 0-5 /hpf (0-5) 04/28/24 23:47 Urine RBC (Auto) 11-20 /hpf (0-2) H 04/28/24 23:47 U Hyaline Cast (Auto) 3-5 /lpf (0-2) H 04/28/24 23:47 U Epithel Cells (Auto) 3-5 /hpf (0-2) H 04/28/24 23:47 Urine Bacteria (Auto) None Seen (None Seen) 04/28/24 23:47 04/29/24 04/28/24 01:08 21:31 POC Glucose 117 H 106 H Electrocardiogram Date: 04/28/24 Findings: + NSR @
[2024-04-29 07:20] LABS: Albumin Globulin Ratio 0.7 (0.9-2); Albumin Level 2.2 gm/dl (3.4-5.0); BUN Creatinine Ratio 21.3 (10-20); Bilirubin,Total 0.6 mg/dl (0.2-1.0); Calcium 6.6 mg/dl (8.6-10.3); Est GFR (Non-African American) 19.9 ml/min; Magnesium 2.6 mg/dl (1.7-2.4); Potassium 3.9 mmol/L (3.5-5.1); Total Protein 5.2 gm/dl (6.0-8.3)
[2024-04-29] MEDS ORDERED: MIDAZOLAM HCL 1 MG/ML 2ML VIAL ONE (08:23)
--- NOTE | 2024-04-29 08:38 | Surgery Progress Note ---
Date of Service April 29, 2024 Assessment & Plan (1) Bowel perforation: Plan: She has been stable overnight, good UOP Will plan on re-exploration laparotomy, washout and colostomy creation today Consent was obtained from her daughter Keena via telephone, risks discussed including bleeding, infection, abscess, need for further surgery (2) Pneumoperitoneum: Admission and Anticipated Discharge Date Admission Date: April 28, 2024 Subjective Pt seen and examined. Stable overnight. Good UOP per nursing. No pressors. Review of Systems Constitutional: no fever and no chills Physical Exam Constitutional: WD/WN, vitals as above Gastrointestinal (Abdomen): Inspection/Auscultation: abdomen normal to inspection; abdomen not distended Wound Vac in place Results & Data Vital Signs (Past 12 Hours) Vital Signs Temp Pulse Resp BP BP Pulse Ox O2 Del Method 04/29/24 08:00 04/29/24 08:00 Mechanical Vent 04/29/24 08:00 91 H 04/29/24 07:57 36.8 C 93/58 L 04/29/24 07:15 90 23 97 04/29/24 05:09 36.8 C 96 H 26 H 87/51 L 97 04/29/24 05:05 36.8 C 91 H 28 H 97 04/29/24 05:01 86/61 L 04/29/24 05:01 36.8 C 96 H 22 97 04/29/24 05:00 36.8 C 93 H 17 97 04/29/24 04:30 97/57 L 04/29/24 04:30 36.8 C 95 H 15 98 04/29/24 04:02 98/63 L 04/29/24 04:02 36.9 C 96 H 18 98 04/29/24 04:01 36.9 C 94 H 16 99 04/29/24 04:00 36.9 C 94 H 15 98 04/29/24 04:00 04/29/24 03:50 92 H 24 98 04/29/24 03:30 36.7 C 86 18 100 04/29/24 03:00 94/62 L 04/29/24 03:00 36.7 C 90 15 98 04/29/24 02:30 36.7 C 93 H 15 98 04/29/24 02:30 91/63 L 04/29/24 02:00 99/65 L 04/29/24 02:00 36.6 C 89 16 99 04/29/24 01:31 86/65 L 04/29/24 01:31 36.6 C 81 17 98 04/29/24 01:30 36.6 C 89 15 99 04/29/24 01:00 106/67 04/29/24 01:00 36.6 C 86 21 99 04/29/24 00:30 36.6 C 85 16 99 04/29/24 00:30 87/62 L 04/29/24 00:03 87/61 L 04/29/24 00:03 36.6 C 90 16 99 04/29/24 00:01 36.5 C 86 16 99 04/29/24 00:00 36.5 C 87 13 99 04/29/24 00:00 86 04/29/24 00:00 04/28/24 23:35 88 22 99 04/28/24 23:30 98/57 L 04/28/24 23:30 36.6 C 91 H 16 99 04/28/24 23:00 36.8 C 89 16 99 04/28/24 22:30 86/56 L 04/28/24 22:30 36.8 C 91 H 17 98 04/28/24 22:00 36.9 C 86 17 97 04/28/24 22:00 94/58 L 04/28/24 21:31 36.9 C 96 H 16 96 04/28/24 21:31 82/69 L 04/28/24 21:30 36.9 C 93 H 16 96 04/28/24 21:15 36.9 C 93 H 16 96 04/28/24 21:00 102/64 04/28/24 21:00 36.8 C 94 H 17 95 04/28/24 20:45 36.8 C 95 H 16 95 04/28/24 20:40 111/65 04/28/24 20:40 36.7 C 93 H 16 95 04/28/24 20:35 102/68 04/28/24 20:35 36.7 C 90 18 96 FiO2 04/29/24 08:00 40 04/29/24 08:00 40 04/29/24 08:00 04/29/24 07:57 04/29/24 07:15 40 04/29/24 05:09 04/29/24 05:05 04/29/24 05:01 04/29/24 05:01 04/29/24 05:00 04/29/24 04:30 04/29/24 04:30 04/29/24 04:02 04/29/24 04:02 04/29/24 04:01 04/29/24 04:00 04/29/24 04:00 40 04/29/24 03:50 40 04/29/24 03:30 04/29/24 03:00 04/29/24 03:00 04/29/24 02:30 04/29/24 02:30 04/29/24 02:00 04/29/24 02:00 04/29/24 01:31 04/29/24 01:31 04/29/24 01:30 04/29/24 01:00 04/29/24 01:00 04/29/24 00:30 04/29/24 00:30 04/29/24 00:03 04/29/24 00:03 04/29/24 00:01 04/29/24 00:00 04/29/24 00:00 04/29/24 00:00 40 04/28/24 23:35 40 04/28/24 23:30 04/28/24 23:30 04/28/24 23:00 04/28/24 22:30 04/28/24 22:30 04/28/24 22:00 04/28/24 22:00 04/28/24 21:31 04/28/24 21:31 04/28/24 21:30 04/28/24 21:15 04/28/24 21:00 04/28/24 21:00 04/28/24 20:45 04/28/24 20:40 04/28/24 20:40 04/28/24 20:35 04/28/24 20:35 PG Care Time/CCT Total # of Minutes Spent Total Time Spent with Patient: Total time spent is greater than 50% in coordination of care (as documented) at patient's floor/unit and/or counseling patient: Coding Level of Care Code 83027 Post Operative Follow-Up Diagnoses Bowel perforation K63.1 Pneumoperitoneum K66.8
--- NOTE | 2024-04-29 08:40 | Electrocardiogram Report ---
Test Reason : Blood Pressure : / mmHG Vent. Rate : 091 BPM Atrial Rate : 091 BPM P-R Int : 140 ms QRS Dur : 084 ms QT Int : 360 ms P-R-T Axes : 047 011 036 degrees QTc Int : 442 ms Normal sinus rhythm Diffuse Minor Nonspecific ST abnormality Abnormal ECG When compared with ECG of 09-JAN-2003 13:54, No significant change Confirmed by Juan Carlos Bruno ([id number] on 04/29/2024 8:40:29 AM Referred By: Omar Leigh Confirmed By:Juan Carlos Bruno
[2024-04-29] MEDS ORDERED: SODIUM CHLORIDE 0.9% PF INJ 10 ML VIAL ONE (09:16)
[2024-04-29] MEDS ORDERED: fentaNYL citrate PF 100 MCG/2 ML VIAL ONE (09:21)
[2024-04-29] MEDS ORDERED: PROPOFOL IV EMULSION 10 MG/ML 20 ML VIAL IV ONE (09:26)
[2024-04-29] MEDS ORDERED: ROCURONIUM BROMIDE 10 MG/ML 5 ML VIAL IV ONE ×2 (09:26→09:45)
[2024-04-29] MEDS ORDERED: PHENYLEPHRINE 100MCG/ML 10ML SYR IV ONE (09:26)
--- NOTE | 2024-04-29 11:03 | Post Operative Brief Note ---
PG Immediate Post Op with CF Date of Surgery April 29, 2024 Pre & Post Diagnosis Operation Date: 04/29/24 07:00 Pre-Op Diagnosis: Open abdomen s/p colon resection Post-Op Diagnosis: Same plus necrotic right ovary I identified the patient and participated in the time-out.: Yes Procedure Operation Date: 04/29/24 07:00 Actual Procedures p Re-exploration Laparotomy, Abdominal Washout, Colostomy Creation(Not Applicable) - Omar Leigh DO Surgeon Omar Leigh DO Office Assistant Shameka Pavon PA-C Estimated Blood Loss 50 Findings See Below Healthy appearing colon and small bowel Necrotic right ovary Specimens Specimen Description: No specimen per surgeon Drains Omar Drain (19Fr round) and [place] Drain (1/2 x 12) Anesthesia Type General Complications none Disposition Disposition: Recovery Room
--- NOTE | 2024-04-29 11:07 | Operative Report ---
PG Post Operative Report Pre & Post Diagnosis Operation Date: 04/29/24 07:00 Pre-Op Diagnosis: Open Abdomen s/p colon resection Post-Op Diagnosis: same plus necrotic right ovary I identified the patient and participated in the time-out.: Yes Procedure Operation Date: 04/29/24 07:00 Actual Procedures p Re-exploration Laparotomy, Abdominal Washout, Colostomy Creation(Not Applicable) - Omar Leigh DO Surgeon Omar Leigh DO Bioinformatics Software Engineer Shameka Pavon PA-C Estimated Blood Loss 25 Findings See Below Healthy appearing colon and small bowel Necrotic right ovary Specimens None Drains 19 Fr Omar drain in pelvis and left paracolic gutter Phoebe in midline incision Anesthesia Type General Complications none Disposition Disposition: Recovery Room Indications 73 yo female with open abdomen s/p colon resection for perforated sigmoid colon/rectum Description of Procedure The patient was brought to the OR and placed in the supine position with both arms abducted. At this time she was already under general endotracheal anesthesia. She was given appropriate pre-operative antibiotics. The wound vac outer dressing was taken down. Her abdomen was prepped and draped in the usual sterile fashion. Timeout was called. The procedure was verified as Re- exploratoration laparotomy, abdominal washout, possible bowel resection, possible ostomy. Surgical, anesthesia and nursing teams agreed and the procedure was begun. The inner wound vac dressing was removed and discarded. We irrigated the abdomen with multiple liters of warm saline. Filmy bowel to bowel adhesions were lysed. There were no further signs of purulence within the abdomen. The small bowel was again run from the ligament of Treitz to cecum and was free of pathology. The rectal stump was identified and was intact. This was tagged with a 2-0 Prolene. The right ovary appeared necrotic. I did consult gynecology intra-op who agreed that the ovary was necrotic. Myself and Dr. Moody came to the decision to leave the ovary in place rather than attempt to remove it due to the amount of inflammation in the pelvis to avoid any injury to the ureter. At this time a spot on the abdominal wall in the left mid abdomen was found and skin excised. This was carried down the fascia where a cruciate incision was made. Rectus muscle was spread with a Jessica clamp. The posterior sheath was then opened using a cruciate incision. The descending colon was then brought up through the opening which two fingers were able to fit through. The ostomy was without signs of ischemia and there was no tension. A 19 Fr Omar drain was placed in the pelvis and left paracolic gutter and brought out through a stab incision in the RLQ. This was secured into place using a 2-0 Nylon. At this point the wound was then irrigated until clear. Hemostasis was achieved using electrocautery. Hemostasis was complete. The fascia was then closed in a running fashion using 2 #1 looped PDS suture starting superiorly and inferiorly and meeting in the middle. Skin was closed with jennifer loosely after a Phoebe drain was placed underneath. The ostomy was then matured using 3-0 Vicryl in a Isabella fashion. Ostomy appliance was placed. Sterile dressing was applied. All needle and sponge counts were correct x 2. At this point the patient was awakened from anesthesia, and transported to PACU in stable condition. The physician's speech pathology assistant was present and scrubbed for the entirety of the case. She was critical in positioning the patient, prepping and draping, retraction and exposure, closure of the incision and placement of the dressings. I attest to the content of the Intraoperative Record and any orders documented therein. Any exceptions are noted below.
[2024-04-29] MEDS: CASPOFUNGIN 70 MG in SODIUM CHLORIDE 0.9% 250 ML IV ONE (12:15)
[2024-04-30 05:12] LABS: iSTAT Allen Test Pass; iSTAT Art Bld Gas pCO2 Correct 42 mmHg (35-46); iSTAT Art Bld Gas pH Corrected 7.353 (7.35-7.45); iSTAT Arterial Blood Gas HCO3 23 meg/L (19-24); iSTAT Arterial Blood Gas pCO2 42 mmHg (35-46); iSTAT Arterial Blood Gas pH 7.35 (7.35-7.45); iSTAT Arterial Blood Gas pO2 87 mmHg (80-95); iSTAT Arterial Blood Gas pO2 C 86; iSTAT Carbon Dioxide 25 mmol/L (24-31); iSTAT FiO2 35 %; iSTAT Hematocrit 35 % (37-47); iSTAT Hemoglobin 11.9 g/dl (12.0-16.0); iSTAT Potassium 3.3 mmol/L (3.3-5.0); iSTAT Site L Radial; iSTAT Sodium 134 mmol/L (135-144)
[2024-04-30 05:41] LABS: Albumin Globulin Ratio 0.6 (0.9-2); Albumin Level 2.1 gm/dl (3.4-5.0); BUN Creatinine Ratio 29.5 (10-20); Bilirubin,Total 0.5 mg/dl (0.2-1.0); Calcium 6.8 mg/dl (8.6-10.3); Creatinine Clr Calc Pharmacy 31.6 ml/min; Est GFR (Non-African American) 34.5 ml/min; Globulin 3.3 gm/dl (2.5-4.0); Magnesium 3.1 mg/dl (1.7-2.4); Potassium 3.4 mmol/L (3.5-5.1); Total Protein 5.4 gm/dl (6.0-8.3)
[2024-04-30 06:23] LABS: Basophils # (auto) 0.01 K/uL (0.00-0.20); Basophils % (auto) 0.1 %; Eosinophils # (auto) 0.01 K/uL (0.00-0.50); Eosinophils % (auto) 0.1 %; Hematocrit (blood only) 35.8 % (37.0-47.0); Hemoglobin 12.4 g/dl (12.0-16.0); Immature Granulocytes % (auto) 1.4 %; Lymphocytes # (auto) 0.71 K/uL (1.20-3.40); Lymphocytes % (auto) 5.1 %; Mean Corpuscular Hemoglobin 30.5 pg (25.0-34.0); Mean Corpuscular Hgb Conc 34.6 g/dL (32.0-36.0); Mean Corpuscular Volume 88.2 fL (80.0-100.0); Mean Platelet Volume 10.7 fL (9.4-12.4); Monocytes # (auto) 1.43 K/uL (0.11-0.59); Monocytes % (auto) 10.2 %; Neutrophils % (auto) 83.1 %; Platelet Count 258 K/uL (130-400); RDW Coefficient of Variation 14.1 % (11.5-14.5); RDW Standard Deviation 45.3 fL (36.4-46.3); Red Blood Count 4.06 M/uL (4.20-5.40); White Blood Count 13.96 K/ul (4.8-10.8)
[2024-04-30] MEDS: POTASSIUM CHLORIDE / WTR 10 MEQ/100 ML PLCT IV SCH (06:24)
--- NOTE | 2024-04-30 08:19 | XRay Report ---
XR chest 1V portable HISTORY: Respiratory failure. COMPARISON: None. FINDINGS: Endotracheal tube terminates 4 cm from the shirley. Nasogastric tube terminates in the stoma ch. Esophageal catheter is also noted. No pneumothorax. The heart is normal in size. Trace bilateral pleural effusions. There are few bibasilar linear densities which favor subsegmental atelectasis. No evidence for pulmonary edema. There are surgical clips within the right axilla. IMPRESSION: 1. Satisfactory support line placement. 2. Trace bilateral pleural effusions and bibasilar linear densities suggesting subsegmental atelectas is. ACT 112: Negative or not required by law. Electronically signed by: Anam Nunez M.D. 04/30/2024 8:17 AM
--- NOTE | 2024-04-30 08:49 | Critical Care Progress Note ---
Date of Service April 30, 2024 Assessment & Plan (1) Sepsis: Plan: Reason Critically Ill: 73-year-old female with past medical history of hypertension presents to the ICU following bowel perforation, with feculent peritonitis, now postop for ex lap with partial colectomy, with open abdomen. She remains intubated with open abdomen and plan to undergo additional colostomy tomorrow. Neuro - Sedation: Extubated. Pain control per general surgical team. Cardiac - HTNno issues. Will use as needed IV meds for hypertension if needed. Respiratory - Minimal O2 requirements currently. Will provide I-S to help prevent atelectasis. Chest x-ray today with trace bilateral effusions and mild subsegmental atelectasis. GI - N.p.o. Bowel perforation/feculent peritonitiss/p partial colectomy, now with creation of ostomy. Necrotic ovary noted on op note. Continue antibiotics with Zosyn and caspofungin. -Management per general surgery. - See ID for treatment of Peritonitis/sepsis below RENAL/LYTES - AKIcreatinine significantly improved. Urine output adequate. -Maintain MAP greater than 65 - Continue fluid resuscitation with IV fluids - Monitor routine BMPs - Foleystrict I's and O's ENDO - No history of diabetes or thyroid disease. ICU hyperglycemic protocol HEME - H&H stable, monitor routine CBC ID - Sepsis secondary to bowel perforation/'s fecal peritonitis No significant leukocytosis, currently afebrile. - Peritoneal fluid cultures pending. Pinpoint growth seen. -Continue with empiric coverage with Zosyn. Gram stain with yeast. Caspofungin added 04/29/2024. LINES/IV ACCESS - Peripheral IVs, ET tube DVT PROPHYLAXIS - SCDs, hold anticoagulation following surgical procedure Stable for downgrade to PCU status. Daughter updated at bedside. (2) Bowel perforation: (3) MEGAN (acute kidney injury): (4) High blood pressure: Admission and Anticipated Discharge Date Admission Date: April 28, 2024 Subjective Patient seen and examined. Sedation discontinued. SBT performed and patient extubated successfully. She is following all commands and alert and oriented x 3. Without any major complaints. Some output from NG tube noted. Review of Systems Review of Systems: All systems reviewed & are unremarkable except as noted in HPI & below Physical Exam Constitutional: average body habitus; no acute distress Eyes: PERRL, conjunctivae normal, anicteric sclerae ENMT: external ear and nose normal, oropharynx normal Neck: trachea midline, no thyromegaly Respiratory: normal respiratory effort, lungs clear to auscultation Cardiovascular: RRR, no murmur, no edema Heart Sounds: normal S1 and normal S2; no murmur Extremities: no edema Gastrointestinal (Abdomen): normal bowel sounds, soft, nontender, no hepatosplenomegaly Musculoskeletal: no cyanosis or clubbing, extremities motor strength 5/5 Skin: no rashes, warm and dry Neurologic: No focal signs. Following commands. Psychiatric: No anxiety. Alert and oriented x 3. Euthymic mood. Genitourinary: Indwelling Aquino catheter present, urine yellow and clear Results & Data Results & Data Vital Signs (Past 12 Hours) Vital Signs Temp Pulse Resp BP BP Pulse Ox FiO2 04/30/24 08:15 86 15 94 04/30/24 08:03 36.7 C 86 18 102/71 95 04/30/24 07:51 36.5 C 86 12 96 04/30/24 07:33 36.5 C 74 19 96 04/30/24 07:18 36.5 C 74 18 95 04/30/24 07:03 76 23 94 35 04/30/24 07:00 36.5 C 76 18 98/58 L 94 04/30/24 06:45 36.5 C 75 18 94 04/30/24 06:33 36.5 C 75 18 94 04/30/24 06:15 36.5 C 75 18 92 04/30/24 06:03 36.5 C 76 18 93 04/30/24 05:36 36.6 C 77 18 92 04/30/24 05:16 85/65 L 04/30/24 04:54 36.7 C 77 18 96 04/30/24 04:33 36.7 C 77 18 97 04/30/24 04:00 76 19 96 30 04/30/24 04:00 35 04/30/24 03:00 36.7 C 77 18 97 04/30/24 02:30 36.8 C 78 18 96 04/30/24 02:24 36.8 C 79 18 96 04/30/24 02:00 93/62 L 04/30/24 01:51 36.9 C 80 17 96 04/30/24 01:00 96/63 L 04/30/24 01:00 37.0 C 81 19 96 04/30/24 00:33 37.0 C 84 21 96 04/30/24 00:15 37.0 C 84 18 96 04/30/24 00:00 102/63 04/30/24 00:00 84 04/30/24 00:00 35 04/29/24 23:30 101/67 04/29/24 23:30 37.1 C 84 19 97 04/29/24 23:25 89 20 97 35 04/29/24 23:03 37.1 C 87 18 97 04/29/24 22:51 37.1 C 86 20 97 04/29/24 22:00 99/61 L 04/29/24 21:57 37.2 C 89 17 97 04/29/24 21:40 95/63 L 04/29/24 21:27 37.2 C 86 18 97 04/29/24 21:20 98/61 L 04/29/24 21:15 37.2 C 87 19 97 Coding Level of Care Code 75060 SUB INP/OBS CARE 3/50MIN Diagnoses Sepsis A41.9 Bowel perforation K63.1 MEGAN (acute kidney injury) N17.9 High blood pressure I10
[2024-04-30] MEDS: CALCIUM GLUCONATE 1,000 MG/60 ML BAG IV SCH (09:04)
[2024-04-30] MEDS: CASPOFUNGIN 50 MG in SODIUM CHLORIDE 0.9% 250 ML IV SCH (10:24)
[2024-04-30] MEDS: HYDROmorphone INJ 0.5 MG/0.5 ML SYR IV PRN (10:53)
[2024-04-30] MEDS: ACETAMINOPHEN 1,000 MG/100 ML VIAL IV PRN (10:54)
[2024-04-30] MEDS: HYDROmorphone INJ 1 MG/ML SYRINGE IV PRN (12:01)
--- NOTE | 2024-04-30 15:14 | Surgery Progress Note ---
Date of Service April 30, 2024 Assessment & Plan (1) Bowel perforation: Plan: POD 2 washout and partial colectomy, omentectomy POD 1 washout, colostomy creation Afebrile, VSS, extubated today doing well. Mild leukocytosis post surgical. Patient extubated, downgraded and planned for transfer to PCU. Medical consult initiated Continue NPO for now with IVF Aquino catheter in place Am labs Will see patient in the am Admission and Anticipated Discharge Date Admission Date: April 28, 2024 Subjective Patient was seen and examined this am. Her family at the bedside. The patient appears comfortable. States she does not currently have pain, says she does get pain but this seems to be helped with pain medications. Patient denies the feeling of nausea. Is still somewhat sleepy since being extubated this am. Physical Exam Constitutional: average body habitus; not in distress and not diaphoretic Respiratory: normal respiratory effort; no respiratory distress, no labored breathing and does not use accessory muscles Gastrointestinal (Abdomen): Abdominal dressings are c/d/i. MARIIA drain with serosanguinous drainage. 220mL recorded. Stoma is viable, beefy red. No output in the bag this afternoon. Aquino in place, good U/O, clear Results & Data Vital Signs (Past 12 Hours) Vital Signs Temp Pulse Resp BP BP Pulse Ox FiO2 04/30/24 08:44 126/74 04/30/24 08:15 86 15 94 04/30/24 08:03 36.7 C 86 18 102/71 95 04/30/24 08:00 81 04/30/24 07:51 36.5 C 86 12 96 04/30/24 07:33 36.5 C 74 19 96 04/30/24 07:18 36.5 C 74 18 95 04/30/24 07:03 76 23 94 35 04/30/24 07:00 36.5 C 76 18 98/58 L 94 04/30/24 06:45 36.5 C 75 18 94 04/30/24 06:33 36.5 C 75 18 94 04/30/24 06:15 36.5 C 75 18 92 04/30/24 06:03 36.5 C 76 18 93 04/30/24 05:36 36.6 C 77 18 92 04/30/24 05:16 85/65 L 04/30/24 04:54 36.7 C 77 18 96 04/30/24 04:33 36.7 C 77 18 97 04/30/24 04:00 76 19 96 30 04/30/24 04:00 35 Results CBC w Diff Results: RBC 4.06 M/uL (4.20-5.40) L 04/30/24 WBC 13.96 K/ul (4.8-10.8) H 04/30/24 Hgb 12.4 g/dl (12.0-16.0) 04/30/24 Hct 35.8 % (37.0-47.0) L 04/30/24 MCV 88.2 fL (80.0-100.0) 04/30/24 MCH 30.5 pg (25.0-34.0) 04/30/24 MCHC 34.6 g/dL (32.0-36.0) 04/30/24 RDW Standard Deviation 45.3 fL (36.4-46.3) 04/30/24 RDW Coefficient of Variation 14.1 % (11.5-14.5) 04/30/24 Plt Count 258 K/uL (130-400) 04/30/24 MPV 10.7 fL (9.4-12.4) 04/30/24 Neutrophils (%) (Auto) 83.1 % 04/30/24 Lymphocytes (%) (Auto) 5.1 % 04/30/24 Monocytes # (Auto) 1.43 K/uL (0.11-0.59) H 04/30/24 Eosinophils # (Auto) 0.01 K/uL (0.00-0.50) 04/30/24 Immature Granulocyte % (Auto) 1.4 % 04/30/24 Neutrophils # (Auto) 11.60 K/uL (1.40-6.50) H 04/30/24 Lymphocytes # (Auto) 0.71 K/uL (1.20-3.40) L 04/30/24 Monocytes # (Auto) 1.43 K/uL (0.11-0.59) H 04/30/24 Eosinophils # (Auto) 0.01 K/uL (0.00-0.50) 04/30/24 Basophils # (Auto) 0.01 K/uL (0.00-0.20) 04/30/24 Immature Granulocyte # (Auto) 0.20 K/uL (0.01-0.20) 4 Polychromasia 1+ 04/29/24 Poikilocytosis Present 04/29/24 Echinocytes 1+ 04/28/24 Toxic Granulation 1+ 04/29/24 Toxic Vacuolation 1+ 04/29/24 Dohle Bodies 1+ 04/29/24 PG Care Time/CCT Total # of Minutes Spent Total Time Spent with Patient: Total time spent is greater than 50% in coordination of care (as documented) at patient's floor/unit and/or counseling patient: Coding Level of Care Code 63843 Post Operative Follow-Up Diagnoses Bowel perforation K63.1
[2024-05-01] MEDS: ONDANSETRON INJ 2 MG/ML 2 ML VIAL IV PRN (00:52)
[2024-05-01 07:04] LABS: Hematocrit (blood only) 32.7 % (37.0-47.0); Hemoglobin 11.3 g/dl (12.0-16.0); Mean Corpuscular Hemoglobin 30.5 pg (25.0-34.0); Mean Corpuscular Hgb Conc 34.6 g/dL (32.0-36.0); Mean Corpuscular Volume 88.1 fL (80.0-100.0); Mean Platelet Volume 10.4 fL (9.4-12.4); Platelet Count 289 K/uL (130-400); RDW Coefficient of Variation 14.7 % (11.5-14.5); RDW Standard Deviation 47.7 fL (36.4-46.3); Red Blood Count 3.71 M/uL (4.20-5.40); White Blood Count 18.72 K/ul (4.8-10.8)
[2024-05-01 07:30] LABS: Albumin Globulin Ratio 0.6 (0.9-2); Albumin Level 2.1 gm/dl (3.4-5.0); BUN Creatinine Ratio 32.5 (10-20); Bilirubin,Total 0.5 mg/dl (0.2-1.0); Calcium 7.2 mg/dl (8.6-10.3); Est GFR (African American) 84.8 ml/min; Est GFR (Non-African American) 73.1 ml/min; Globulin 3.4 gm/dl (2.5-4.0); Potassium 3.2 mmol/L (3.5-5.1); Total Protein 5.5 gm/dl (6.0-8.3)
[2024-05-01 08:04] LABS: Basophils # (auto) 0.06 K/uL (0.00-0.20); Basophils % (auto) 0.3 %; Eosinophils # (auto) 0.02 K/uL (0.00-0.50); Eosinophils % (auto) 0.1 %; Immature Granulocytes # (auto) 0.25 K/uL (0.01-0.20); Immature Granulocytes % (auto) 1.3 %; Lymphocytes # (auto) 1.22 K/uL (1.20-3.40); Lymphocytes % (auto) 6.5 %; Monocytes # (auto) 1.28 K/uL (0.11-0.59); Monocytes % (auto) 6.8 %; Neutrophils # (auto) 15.89 K/uL (1.40-6.50)
--- NOTE | 2024-05-01 12:33 | Surgery Progress Note ---
Date of Service May 01, 2024 Assessment & Plan (1) Bowel perforation: Plan POD 3 washout and partial colectomy, omentectomy POD 2 washout, colostomy creation Afebrile, VSS, extubated 04/30/24, remains extubated, doing well from a respiratory standpoint. Mild leukocytosis post surgical has increased to 18.72 on this am labs. No evidence for wound infection at this time and Phoebe drain is present for expected wound drainage. Will monitor WBC with follow up labs in the am. May be due to ongoing post surgical reaction and awaiting colostomy output. H/H decreased by 1 gram this am, most likely dilutional, pt remains HD stable and with good U/O. Continue NPO for now with IVF Continue IV antibiotics and antifungal, patient on Zosyn and Caspofungin ID recommendation: Continue with empiric coverage with Zosyn. Gram stain with yeast. Caspofungin added 04/29/2024. 04/28 peritoneal fluid cultures with preliminary results revealing mixed GI microbiota. Aquino catheter in place. Continue with strict I/O's Medical consult on board Am labs. DVT ppx when H/H stable Surgery will follow up in the am Admission and Anticipated Discharge Date Admission Date: April 28, 2024 Subjective The patient has been seen and examined. She is again lethargic at my interview this am with her daughter at the bedside who states she has been getting pain medication and is constantly sleepy due to that. Physical Exam Constitutional: not in distress and not diaphoretic afebirle Somnolent/sleepy Respiratory: normal respiratory effort; no respiratory distress, no labored breathing and does not use accessory muscles Cardiovascular: Rate/Rhythm: regular rate; not tachycardic Warm extremities Gastrointestinal (Abdomen): Outer surgical dressings are dry and intact. There is some drainage noted on the underside of the dressings with dry staining on the gauze. There is no active drainage. The incision is with jennifer which appears intact and an area inferiorly left open for Phoebe drain. There is no erythema along the incision to suggest abscess or fluid collection. No evidence for infection here and the stoma is a e business specialist red, appears healthy and viable. There is not yet flatus in the bag or output. Aquino catheter in place with clear, non-turbid urine. U/O good with 1400cc's recorded for the last 24 hour period. Musculoskeletal: Peripheral edema UE Results & Data Vital Signs (Past 12 Hours) Vital Signs Temp Pulse Pulse Resp BP Pulse Ox O2 Del Method 05/01/24 10:54 36.6 C 79 21 130/80 100 Nasal Cannula 05/01/24 08:00 80 05/01/24 07:37 36.7 C 82 19 151/77 H 94 Nasal Cannula 05/01/24 04:00 36.5 C 76 17 143/76 H 93 Nasal Cannula O2 Flow Rate 05/01/24 10:54 3 05/01/24 08:00 05/01/24 07:37 3 05/01/24 04:00 3 Results Complete Blood Count Results: RBC 3.71 M/uL (4.20-5.40) L 05/01/24 WBC 18.72 K/ul (4.8-10.8) H 05/01/24 Hgb 11.3 g/dl (12.0-16.0) L 05/01/24 Hct 32.7 % (37.0-47.0) L 05/01/24 Plt Count 289 K/uL (130-400) 05/01/24 PG Care Time/CCT Total # of Minutes Spent Total Time Spent with Patient: Total time spent is greater than 50% in coordination of care (as documented) at patient's floor/unit and/or counseling patient: Coding Level of Care Code 40834 Post Operative Follow-Up Diagnoses Bowel perforation K63.1
[2024-05-01] MEDS: POTASSIUM CHLORIDE / WTR 10 MEQ/100 ML PLCT IV SCH (20:43)
--- NOTE | 2024-05-01 20:58 | Hospitalist Consultation ---
Date of Consultation May 01, 2024 Assessment & Plan (1) Sepsis: Sepsis secondary to bowel perforation/ fecal peritonitis. Leukocytosis is worsening, however clinically patient appears to be doing better. WIll monitor WBC. monitor inflammatory markers: crp will also check procal Patient though is not tachycardic and afebrile. On adequate antibiotics. Given clinical course of perforated bowel, expect culture not to have much value as the expected result would be GI organisms. History of Present Illness Reason for Consultation: sepsis Attending Physician: Omar Leigh DO History of Present Illness This is a pleasant 73 yo female who presented to the hospital with progressively worse abdominal pain. Her PCP referred her to the ED. In which she was found to have a perforated bowel on the CT scan of her abdomen and pelvis. Patient was taken emergently to surgery. A perforation of distal sigmoid colon/proximal rectum, and feculent peritonitis were identified. She underwent exploratory laparotomy with partial colectomy, omenectomy and wound vac. Patient needed to wait for the colostomy given the above findings, so she was transferred to the ICU with open abdomen. Patient was intubated. Later in her hospital stay, patient had a colostomy and her abdomen was closed. Patient was successfully extubated. Patient is now transferred to PCU. Hospitalist service was called to help manage her medical complications including sepsis. Patient remains lethargic this morning. Allergies Allergy/AdvReac Type Severity Reaction Status Date / Time latex Allergy Unknown little red Verified 04/30/24 09:24 itchy bumps Penicillins Allergy Unknown i was Verified 04/30/24 09:24 young, think itchy , swelling ? Home Medications Medication Instructions Recorded Confirmed Type hydrochlorothiazide 12.5 mg capsule 12.5 mg PO QAM 03/26/21 04/30/24 History zolpidem 5 mg tablet 5 mg PO UD PRN Sleep 03/26/21 04/30/24 History apple cider vinegar 300 mg tablet 300 mg PO DAILY 09/24/23 04/30/24 History cholecalciferol (vitamin D3) 25 50 mcg PO DAILY 09/24/23 04/30/24 History mcg (1,000 unit) tablet (Vitamin D3) cinnamon bark 500 mg capsule 500 mg PO DAILY 09/24/23 04/30/24 History (Cinnamon) garlic 400 mg tablet,delayed 400 mg PO DAILY 09/24/23 04/30/24 History release magnesium 1 tab PO DAILY 09/24/23 04/30/24 History resveratrol 50 mg capsule 50 mg PO DAILY 09/24/23 04/30/24 History turmeric 400 mg capsule 400 mg PO DAILY 09/24/23 04/30/24 History vitamin B complex 1 cap PO DAILY 09/24/23 04/30/24 History vitamin E 400 unit tablet 0 mg PO DAILY 09/24/23 04/30/24 History Patient History Medical History History of COVID-19 3-4 yr ago. Situational anxiety don't like going to Dr. oliveros. History of breast cancer 20 yr ago/ sx , chemo and radiation Surgical History [place] teeth removed History of colonoscopy History of lumpectomy of right breast Social History Smoking Status: Former smoker Tobacco Type: Cigarettes Smoking End Date: 10+ years ago; Hx Alcohol Use: Yes Alcohol type: beer and hard liquor Hx Substance Use: No Preferred Language: Yi Communication Ability: Impaired Manager Embalmer Funeral Director Required: No Beliefs That Will Affect Care: None Current Living Situation: Spouse Other Information That Helps Us Care for You: No Feels Safe at Home: Yes Safety Concerns: Feels Safe At This Time Assistive Devices: None Review of Systems Review of Systems: Unobtainable due to cognitive status Physical Exam Constitutional: average body habitus; no acute distress Eyes: PERRL, conjunctivae normal, anicteric sclerae ENMT: external ear and nose normal, oropharynx normal Neck: trachea midline, no thyromegaly Respiratory: normal respiratory effort, lungs clear to auscultation Cardiovascular: RRR, no murmur, no edema Heart Sounds: normal S1 and normal S2; no murmur Extremities: no edema Gastrointestinal (Abdomen): normal bowel sounds, soft, nontender, no hepatosplenomegaly Musculoskeletal: no cyanosis or clubbing, extremities motor strength 5/5 Skin: no rashes, warm and dry Neurologic: No focal signs. Psychiatric: No anxiety. Genitourinary: Indwelling Aquino catheter present, urine yellow and clear Results & Data Results & Data Vital Signs (Past 12 Hours) Vital Signs Temp Pulse Pulse Resp BP Pulse Ox O2 Del Method 05/01/24 20:00 36.9 C 87 18 166/80 H 91 Nasal Cannula 05/01/24 16:02 37.1 C 85 21 151/83 H 95 Nasal Cannula 05/01/24 16:00 80 05/01/24 10:54 36.6 C 79 21 130/80 100 Nasal Cannula O2 Flow Rate 05/01/24 20:00 2 05/01/24 16:02 2 05/01/24 16:00 05/01/24 10:54 3 PG Care Time/CCT Total # of Minutes Spent Total Time Spent with Patient: Total time spent is greater than 50% in coordination of care (as documented) at patient's floor/unit and/or counseling patient: Coding Level of Care Code 16850 IN/OBS CONSULT LVL 4,60M Diagnoses Sepsis A41.9
[2024-05-02 06:31] LABS: Basophils % (auto) 0.5 %; Eosinophils # (auto) 0.03 K/uL (0.00-0.50); Eosinophils % (auto) 0.1 %; Hemoglobin 11.3 g/dl (12.0-16.0); Immature Granulocytes # (auto) 0.39 K/uL (0.01-0.20); Immature Granulocytes % (auto) 1.8 %; Lymphocytes # (auto) 1.29 K/uL (1.20-3.40); Lymphocytes % (auto) 6.1 %; Mean Corpuscular Hemoglobin 30.7 pg (25.0-34.0); Mean Corpuscular Hgb Conc 34.2 g/dL (32.0-36.0); Mean Corpuscular Volume 89.7 fL (80.0-100.0); Mean Platelet Volume 10.1 fL (9.4-12.4); Monocytes # (auto) 1.69 K/uL (0.11-0.59); Monocytes % (auto) 7.9 %; Neutrophils # (auto) 17.78 K/uL (1.40-6.50); Neutrophils % (auto) 83.6 %; Platelet Count 306 K/uL (130-400); RDW Coefficient of Variation 14.8 % (11.5-14.5); Red Blood Count 3.68 M/uL (4.20-5.40); White Blood Count 21.28 K/ul (4.8-10.8)
[2024-05-02 06:49] LABS: Albumin Globulin Ratio 0.6 (0.9-2); BUN Creatinine Ratio 29.7 (10-20); Bilirubin,Total 0.7 mg/dl (0.2-1.0); Calcium 7.2 mg/dl (8.6-10.3); Creatinine Clr Calc Pharmacy 77.2 ml/min; Est GFR (African American) 102.6 ml/min; Est GFR (Non-African American) 88.5 ml/min; Globulin 3.6 gm/dl (2.5-4.0); Potassium 3.2 mmol/L (3.5-5.1); Total Protein 5.6 gm/dl (6.0-8.3)
--- NOTE | 2024-05-02 09:27 | Surgery Progress Note ---
Date of Service May 02, 2024 Assessment & Plan (1) Sepsis: Plan: She is overall doing well 3 days after abdominal closure and colostomy creation Will DC her Aquino Start clears, keep on these until there is ostomy output Change her D5 half-normal with KCl to replete her potassium Start Lovenox for DVT prophylaxis PT OT and ostomy nurse consults Encourage ambulation and incentive spirometry White blood cell count is rising, she is at very high risk for intra-abdominal abscess considering her intraoperative findings If her white blood cell count remains elevated we will plan for a CT of the abdomen pelvis at or Thursday at the earliest to look for any mature abscess (2) MEGAN (acute kidney injury): (3) Bowel perforation: (4) Pneumoperitoneum: Admission and Anticipated Discharge Date Admission Date: April 28, 2024 Subjective Patient seen and examined. She is still little groggy. No colostomy output yet. Vital signs stable overnight. Low-grade temp. Physical Exam Constitutional: WD/WN, vitals as above Gastrointestinal (Abdomen): Midline incision with jennifer and Phoebe drain in place Colostomy in the left abdomen, pink with only bowel sweat in the bag Results & Data Vital Signs (Past 12 Hours) Vital Signs Temp Pulse Pulse Resp BP Pulse Ox O2 Del Method 05/02/24 03:57 36.4 C L 73 20 157/80 H 94 Nasal Cannula 05/01/24 23:40 37.8 C H 86 92 Nasal Cannula 05/01/24 22:46 37.8 C H 85 14 158/94 H 93 Nasal Cannula 05/01/24 22:00 84 O2 Flow Rate 05/02/24 03:57 3 05/01/24 23:40 3 05/01/24 22:46 3 05/01/24 22:00 PG Care Time/CCT Total # of Minutes Spent Total Time Spent with Patient: Total time spent is greater than 50% in coordination of care (as documented) at patient's floor/unit and/or counseling patient: Coding Level of Care Code 79498 Post Operative Follow-Up Diagnoses Sepsis A41.9 Severe sepsis acute organ dysfunction type: acute renal failure Severe sepsis shock status: without septic shock MEGAN (acute kidney injury) N17.9 Bowel perforation K63.1 Pneumoperitoneum K66.8 (1) Sepsis Severe sepsis acute organ dysfunction type: acute renal failure Severe sepsis shock status: without septic shock
[2024-05-02 09:39] LABS: C Reactive Protein 21.22 mg/dl (0-0.5)
[2024-05-02] MEDS: D5W AND 1/2NSS + 20MEQ KCL 20 MEQ/1,000 ML BAG IV SCH (11:23)
[2024-05-02] MEDS: ENOXAPARIN INJ 40 MG/0.4 ML SYR SQ SCH (11:24)
[2024-05-02] MEDS: POTASSIUM CHLORIDE / WTR 10 MEQ/100 ML PLCT IV SCH (11:51)
--- NOTE | 2024-05-02 16:14 | XRay Report ---
XR chest 1V portable HISTORY: 73 years-old Female wheezing acute shortness of breath COMPARISON: 04/30/2024 TECHNIQUE: AP view of the chest FINDINGS: Interval extubation. The cardiac silhouette is enlarged. Atherosclerosis of the aorta. Mild right hem idiaphragmatic elevation. Small pleural effusions with bibasilar densities. Pulmonary vascular conges tion. Right chest wall surgical clips. Bones appear grossly intact IMPRESSION: 1. Interval extubation. 2. Cardiomegaly with pulmonary vascular congestion. 3. Small pleural effusions with mild bibasilar consolidation. ACT 112: Negative or not required by law. The above report was generated using voice recognition software. It may contain grammatical, syntax o r spelling errors. Electronically signed by: Ruperto Uriarte M.D. 05/02/2024 4:13 PM
[2024-05-02 18:28] LABS: Appearance Urine Clear (Clear); Bacteria Urine Automated None Seen (None Seen); Bilirubin Urine Negative (Negative); Blood Urine 1+ (Negative); Cast Urine Automated 0-2 /lpf (0-2); Color Urine Yellow; Glucose Urine UA Trace (Negative); Ketones Urine 1+ (Negative); Leukocyte Esterase Urine Negative (Negative); Nitrite Urine Negative (Negative); Protein Urine 1+ (Negative); Specific Gravity Urine 1.028 (1.000-1.030); Urobilinogen Urine Negative (Negative); WBC Urine Automated 0-5 /hpf (0-5)
--- NOTE | 2024-05-02 23:25 | Hospitalist Progress Note ---
Date of Service May 02, 2024 Assessment & Plan (1) Sepsis: Plan: Sepsis secondary to bowel perforation/ fecal peritonitis. Leukocytosis is worsening, however clinically patient appears to be doing better. WIll monitor WBC. Inflammatory markers and procal also elevated however will reorder to check trend monitor inflammatory markers: crp will also check procal Patient though is not tachycardic and mainly afebrile.. DId have a temperature of 37.8 (granted this could be masked due to the acetaminophen being used for pain) D/W surgical team: will recheck CT on and Thursday to assess for a mature abscess. Patient has a high likelihood that an abscess may form. If that is the case may need IR to drain vs another surgical intervention to washout. On adequate antibiotics. Given clinical course of perforated bowel, expect culture not to have much value as the expected result would be GI organisms. Admission and Anticipated Discharge Date Admission Date: April 28, 2024 Subjective Patient is a bit drowsy, but does not report any new symptoms. She complains of mild abdominal pain near [place]. Review of Systems Review of Systems: All systems reviewed & are unremarkable except as noted in HPI & below Physical Exam Constitutional: average body habitus; no acute distress Eyes: PERRL, conjunctivae normal, anicteric sclerae ENMT: external ear and nose normal, oropharynx normal Neck: trachea midline, no thyromegaly Respiratory: Rhonchi heard. Cardiovascular: RRR, no murmur, no edema Heart Sounds: normal S1 and normal S2; no murmur Extremities: no edema Gastrointestinal (Abdomen): normal bowel sounds, soft, nontender, no hepatosplenomegaly Musculoskeletal: no cyanosis or clubbing, extremities motor strength 5/5 Skin: no rashes, warm and dry Results & Data Results & Data Vital Signs (Past 12 Hours) Vital Signs Temp Pulse Pulse Resp BP Pulse Ox O2 Del Method 05/02/24 23:19 37.0 C 79 20 147/77 H 94 Nasal Cannula 05/02/24 19:37 Nasal Cannula 05/02/24 19:30 36.5 C 79 20 161/86 H 96 Nasal Cannula 05/02/24 16:00 89 05/02/24 15:21 36.6 C 78 22 162/90 H 96 Nasal Cannula 05/02/24 12:21 36.4 C L 81 25 H 170/94 H 96 Nasal Cannula O2 Flow Rate 05/02/24 23:19 3 05/02/24 19:37 2 05/02/24 19:30 3 05/02/24 16:00 05/02/24 15:21 05/02/24 12:21 PG Care Time/CCT Total # of Minutes Spent Total Time Spent with Patient: Total time spent is greater than 50% in coordination of care (as documented) at patient's floor/unit and/or counseling patient: Coding Level of Care Code 92396 SUB INP/OBS CARE 3/50MIN Diagnoses Sepsis A41.9 Severe sepsis acute organ dysfunction type: acute renal failure Severe sepsis shock status: without septic shock (1) Sepsis Severe sepsis acute organ dysfunction type: acute renal failure Severe sepsis shock status: without septic shock
--- NOTE | 2024-05-03 07:38 | Hospitalist Progress Note ---
Date of Service May 03, 2024 Assessment & Plan (1) Sepsis: Plan: Sepsis secondary to bowel perforation/ fecal peritonitis. clinically patient appears to be doing better, on Zosyn and Caspofungin, CRP is reducing, wound culture is currently pending for final results D/W surgical team: will recheck CT on and Thursday to assess for a mature abscess. Patient has a high likelihood that an abscess may form. If that is the case may need IR to drain vs another surgical intervention to washout. Pt is 13 L ahead and has some pulmonary vascular congestion on CXR once taking po will consider IV diuresis Discussed situational depression for this patient she is a homeopathic person and likes to take natural substances will continue to discuss present at bedside and updated. Admission and Anticipated Discharge Date Admission Date: April 28, 2024 Subjective Patient is not very talkative she seems to be slightly depressed. She is just frustrated that this happened in the first place. Patient is able to take some sips of fluid she is not motivated to eat attempted diuresis that she is 13 L ahead was begun today IV fluids were reduced Physical Exam Physical Exam: Awake alert appropriate. Bowel sounds are present abdomen soft colostomy in place card exam is regular lungs are clear Results & Data Results & Data Vital Signs (Past 12 Hours) Vital Signs Temp Pulse Pulse Resp BP Pulse Ox O2 Del Method 05/03/24 02:47 98.2 F 78 22 160/82 H 94 Nasal Cannula 05/02/24 23:19 98.6 F 79 20 147/77 H 94 Nasal Cannula 05/02/24 22:15 80 05/02/24 19:37 Nasal Cannula O2 Flow Rate 05/03/24 02:47 2 05/02/24 23:19 3 05/02/24 22:15 05/02/24 19:37 2 Laboratory Results Reviewed CBC marked leukocytosis Reviewed chemistry no anion gap CRP is reduced PG Care Time/CCT Total # of Minutes Spent Total Time Spent with Patient: Total time spent is greater than 50% in coordination of care (as documented) at patient's floor/unit and/or counseling patient: Coding Level of Care Code 78505 SUB INP/OBS CARE 2/35MIN Diagnoses Sepsis A41.9 Severe sepsis acute organ dysfunction type: acute renal failure Severe sepsis shock status: without septic shock (1) Sepsis Severe sepsis acute organ dysfunction type: acute renal failure Severe sepsis shock status: without septic shock
--- NOTE | 2024-05-03 08:33 | Surgery Progress Note ---
Date of Service May 03, 2024 Assessment & Plan (1) Sepsis: Plan: She is doing well overall but still a bit groggy and not moving much Will give her full liquids as her ostomy started to function Will need help with pouching her ostomy as it did leak into the incision last night, will have ostomy nurse see her Keep Newton in place and midline incision Continue antibiotics and antifungals Her labs are not back yet, will trend her WBC Replace electrolytes as needed we will decrease her IV fluids she seems a bit fluid overloaded (2) MEGAN (acute kidney injury): (3) Bowel perforation: (4) Pneumoperitoneum: (5) Hyponatremia: Admission and Anticipated Discharge Date Admission Date: April 28, 2024 Subjective Patient seen and examined. She is tolerating clear liquids without nausea or vomiting. Had some ostomy output last night. Afebrile. Pain controlled. Physical Exam Constitutional: WD/WN, vitals as above Gastrointestinal (Abdomen): Incision with jennifer and Phoebe in place Ostomy in the left abdomen pink with output Results & Data Vital Signs (Past 12 Hours) Vital Signs Temp Pulse Pulse Resp BP Pulse Ox O2 Del Method 05/03/24 08:20 36.7 C 82 26 H 164/124 H 95 Nasal Cannula 05/03/24 07:44 75 05/03/24 02:47 36.8 C 78 22 160/82 H 94 Nasal Cannula 05/02/24 23:19 37.0 C 79 20 147/77 H 94 Nasal Cannula 05/02/24 22:15 80 O2 Flow Rate 05/03/24 08:20 05/03/24 07:44 05/03/24 02:47 2 05/02/24 23:19 3 05/02/24 22:15 PG Care Time/CCT Total # of Minutes Spent Total Time Spent with Patient: Total time spent is greater than 50% in coordination of care (as documented) at patient's floor/unit and/or counseling patient: Coding Level of Care Code 49050 Post Operative Follow-Up Diagnoses Sepsis A41.9 Severe sepsis acute organ dysfunction type: acute renal failure Severe sepsis shock status: without septic shock MEGAN (acute kidney injury) N17.9 Bowel perforation K63.1 Pneumoperitoneum K66.8 Hyponatremia E87.1 (1) Sepsis Severe sepsis acute organ dysfunction type: acute renal failure Severe sepsis shock status: without septic shock
[2024-05-03 08:54] LABS: Hematocrit (blood only) 36.2 % (37.0-47.0); Hemoglobin 12.3 g/dl (12.0-16.0); Mean Corpuscular Hemoglobin 29.9 pg (25.0-34.0); Mean Corpuscular Volume 87.9 fL (80.0-100.0); Mean Platelet Volume 10.3 fL (9.4-12.4); Platelet Count 362 K/uL (130-400); RDW Coefficient of Variation 14.7 % (11.5-14.5); RDW Standard Deviation 47.8 fL (36.4-46.3); Red Blood Count 4.12 M/uL (4.20-5.40); White Blood Count 24.33 K/ul (4.8-10.8)
[2024-05-03 09:15] LABS: Basophils # (auto) 0.07 K/uL (0.00-0.20); Basophils % (auto) 0.3 %; Eosinophils # (auto) 0.12 K/uL (0.00-0.50); Eosinophils % (auto) 0.5 %; Immature Granulocytes % (auto) 3.3 %; Lymphocytes # (auto) 1.39 K/uL (1.20-3.40); Lymphocytes % (auto) 5.7 %; Monocytes # (auto) 1.49 K/uL (0.11-0.59); Monocytes % (auto) 6.1 %; Neutrophils # (auto) 20.46 K/uL (1.40-6.50); Neutrophils % (auto) 84.1 %
[2024-05-03 09:20] LABS: Albumin Globulin Ratio 0.6 (0.9-2); Albumin Level 2.2 gm/dl (3.4-5.0); BUN Creatinine Ratio 20.8 (10-20); Bilirubin,Total 0.7 mg/dl (0.2-1.0); C Reactive Protein 17.47 mg/dl (0-0.5); Calcium 7.2 mg/dl (8.6-10.3); Creatinine Clr Calc Pharmacy 102.8 ml/min; Est GFR (African American) 112.8 ml/min; Est GFR (Non-African American) 97.3 ml/min; Globulin 3.9 gm/dl (2.5-4.0); Potassium 3.3 mmol/L (3.5-5.1); Total Protein 6.1 gm/dl (6.0-8.3)
[2024-05-03] MEDS: ACETAMINOPHEN 1,000 MG/100 ML VIAL IV PRN (10:00)
[2024-05-03] MEDS ORDERED: HYDROmorphone INJ 0.5 MG/0.5 ML SYR IV PRN (11:29)
[2024-05-03] MEDS: POTASSIUM CHLORIDE 40 MEQ in SODIUM CHLORIDE 0.9% 1,000 ML IV SCH (12:21)
[2024-05-03] MEDS: FUROSEMIDE INJ 20 MG/2 ML VIAL IV ONE (12:21)
[2024-05-03] MEDS: ACETAMINOPHEN 500 MG TAB PO SCH (14:19)
[2024-05-04 06:12] LABS: Basophils # (auto) 0.05 K/uL (0.00-0.20); Basophils % (auto) 0.3 %; Eosinophils # (auto) 0.15 K/uL (0.00-0.50); Eosinophils % (auto) 0.8 %; Hematocrit (blood only) 35.5 % (37.0-47.0); Hemoglobin 12.1 g/dl (12.0-16.0); Immature Granulocytes # (auto) 0.45 K/uL (0.01-0.20); Immature Granulocytes % (auto) 2.5 %; Lymphocytes # (auto) 1.24 K/uL (1.20-3.40); Mean Corpuscular Hemoglobin 29.9 pg (25.0-34.0); Mean Corpuscular Hgb Conc 34.1 g/dL (32.0-36.0); Mean Corpuscular Volume 87.7 fL (80.0-100.0); Mean Platelet Volume 10.7 fL (9.4-12.4); Monocytes # (auto) 1.03 K/uL (0.11-0.59); Monocytes % (auto) 5.8 %; Neutrophils # (auto) 14.78 K/uL (1.40-6.50); Neutrophils % (auto) 83.6 %; Platelet Count 384 K/uL (130-400); RDW Coefficient of Variation 14.2 % (11.5-14.5); RDW Standard Deviation 45.5 fL (36.4-46.3); Red Blood Count 4.05 M/uL (4.20-5.40)
[2024-05-04 06:15] LABS: BUN Creatinine Ratio 19.5 (10-20); Calcium 7.4 mg/dl (8.6-10.3); Creatinine Clr Calc Pharmacy 121.2 ml/min; Est GFR (African American) 118.8 ml/min; Est GFR (Non-African American) 102.5 ml/min; Potassium 3.1 mmol/L (3.5-5.1)
[2024-05-04] MEDS: MAGNESIUM SULFATE / D5W 1 GM/100 ML BAG IV ONE (07:29)
[2024-05-04] MEDS: POTASSIUM CHLORIDE CRTAB 20 MEQ TABCR PO SCH (08:03)
[2024-05-04] MEDS: KETOROLAC TROMETHAMINE 15 MG/ML VIAL IV PRN (09:23)
--- NOTE | 2024-05-04 09:26 | Surgery Progress Note ---
Date of Service May 04, 2024 Assessment & Plan (1) Bowel perforation: Plan: She is overall improving slowly, has ostomy output and tolerating fulls Advance to low fiber diet, d/c IVF Replete K+ Midline incision with some purulent fluid draining nicely from inferior pole WBC downtrending, continue Zosyn and Caspo If she spikes a temp or WBC increases, will plan on CT A/P, otherwise can hold off on this (2) MEGAN (acute kidney injury): (3) Sepsis: (4) Hyponatremia: Admission and Anticipated Discharge Date Admission Date: April 28, 2024 Subjective Pt seen and examined. Ostomy working well. Afebrile. Still on some O2. No acute events overnight. Physical Exam Constitutional: WD/WN, vitals as above Gastrointestinal (Abdomen): Midline incision with jennifer, faisal in place draining some murky fluid Omar drain in RLQ with serosanguinous fluid Ostomy in left abdomen, pink with good output Results & Data Vital Signs (Past 12 Hours) Vital Signs Temp Pulse Pulse Pulse Resp BP Pulse Ox 05/04/24 07:56 36.1 C L 78 24 154/92 H 93 05/04/24 07:17 72 05/04/24 04:00 77 92 05/04/24 03:06 36.7 C 79 24 160/82 H 96 05/03/24 22:49 36.5 C 73 21 152/83 H 97 05/03/24 22:00 77 O2 Del Method O2 Flow Rate 05/04/24 07:56 Nasal Cannula 2 05/04/24 07:17 05/04/24 04:00 Nasal Cannula 2 05/04/24 03:06 Nasal Cannula 2 05/03/24 22:49 Nasal Cannula 2 05/03/24 22:00 PG Care Time/CCT Total # of Minutes Spent Total Time Spent with Patient: Total time spent is greater than 50% in coordination of care (as documented) at patient's floor/unit and/or counseling patient: Coding Level of Care Code 76064 Post Operative Follow-Up Diagnoses Bowel perforation K63.1 MEGAN (acute kidney injury) N17.9 Sepsis A41.9 Severe sepsis acute organ dysfunction type: acute renal failure Severe sepsis shock status: without septic shock Hyponatremia E87.1 (3) Sepsis Severe sepsis acute organ dysfunction type: acute renal failure Severe sepsis shock status: without septic shock
--- NOTE | 2024-05-04 13:55 | Hospitalist Progress Note ---
Date of Service May 04, 2024 Assessment & Plan (1) Sepsis: Plan: Sepsis secondary to bowel perforation/ fecal peritonitis. clinically patient appears to be doing better, on Zosyn and Caspofungin, CRP is reducing, wound culture is currently pending for final results WBC is improving, less pain, will continue to mobilize patient and increase activity Discussed situational depression for this patient she is a homeopathic person and likes to take natural substances Daughter present at bedside and updated. given iv potassium and magnesium Admission and Anticipated Discharge Date Admission Date: April 28, 2024 Subjective pt was seen in the company of her daughter not out of bed today yet functioning ostomy abdominal pain is improving Physical Exam Physical Exam: Awake alert appropriate. Bowel sounds are present abdomen soft colostomy in place waste in bag card exam is regular lungs are clear Results & Data Results & Data Vital Signs (Past 12 Hours) Vital Signs Temp Pulse Pulse Pulse Resp BP Pulse Ox 05/04/24 12:30 98.4 F 73 15 136/86 98 05/04/24 08:00 05/04/24 07:56 97.0 F L 78 24 154/92 H 93 05/04/24 07:17 72 05/04/24 04:00 77 92 05/04/24 03:06 98.1 F 79 24 160/82 H 96 O2 Del Method O2 Flow Rate 05/04/24 12:30 Nasal Cannula 1.5 05/04/24 08:00 Nasal Cannula 3 05/04/24 07:56 Nasal Cannula 2 05/04/24 07:17 05/04/24 04:00 Nasal Cannula 2 05/04/24 03:06 Nasal Cannula 2 Laboratory Results review cbc review chemistry, replete potassium ordered PG Care Time/CCT Total # of Minutes Spent Total Time Spent with Patient: Total time spent is greater than 50% in coordination of care (as documented) at patient's floor/unit and/or counseling patient: Coding Level of Care Code 30526 SUB INP/OBS CARE 2/35MIN Diagnoses Sepsis A41.9 Severe sepsis acute organ dysfunction type: acute renal failure Severe sepsis shock status: without septic shock (1) Sepsis Severe sepsis acute organ dysfunction type: acute renal failure Severe sepsis shock status: without septic shock
[2024-05-05 07:24] LABS: Basophils # (auto) 0.03 K/uL (0.00-0.20); Basophils % (auto) 0.2 %; Eosinophils % (auto) 0.6 %; Hemoglobin 12.5 g/dl (12.0-16.0); Immature Granulocytes # (auto) 0.24 K/uL (0.01-0.20); Immature Granulocytes % (auto) 1.5 %; Lymphocytes # (auto) 1.14 K/uL (1.20-3.40); Mean Corpuscular Hemoglobin 30.3 pg (25.0-34.0); Mean Corpuscular Hgb Conc 34.7 g/dL (32.0-36.0); Mean Corpuscular Volume 87.2 fL (80.0-100.0); Mean Platelet Volume 10.7 fL (9.4-12.4); Monocytes % (auto) 6.2 %; Neutrophils % (auto) 84.5 %; Platelet Count 401 K/uL (130-400); RDW Coefficient of Variation 14.4 % (11.5-14.5); RDW Standard Deviation 45.6 fL (36.4-46.3); Red Blood Count 4.13 M/uL (4.20-5.40); White Blood Count 16.21 K/ul (4.8-10.8)
[2024-05-05 07:46] LABS: Calcium 7.3 mg/dl (8.6-10.3); Potassium 3.2 mmol/L (3.5-5.1)
[2024-05-05 07:51] LABS: Creatinine Clr Calc Pharmacy 113.7 ml/min; Est GFR (African American) 117.9 ml/min; Est GFR (Non-African American) 101.7 ml/min
--- NOTE | 2024-05-05 08:25 | Surgery Progress Note ---
Date of Service May 05, 2024 Assessment & Plan (1) Bowel perforation: Plan: s/p exlap for bowel perforation and colostomy formation with washout x2 WBC 16 (17). K 3.2 (will replete). Vitals stable and patient afebrile. requiring supplemental O2. Will continue to trend WBC in hopes it continues to downtrend, is high risk for abscess formation Will d/c IV capso, continue on IV zosyn for now Tolerating low fiber diet and ostomy functioning Needs ongoing pulmonary toilet and ongoing ambulation. PT/OT ordered Will continue to monitor wound, continue daily vs BID dressing changes Admission and Anticipated Discharge Date Admission Date: April 28, 2024 Supervising Physician Co-Signing Physician Notes I personally saw and evaluated the patient with Shameka Pavon PA-C and agree with the assessment and plan. 73 yo female POD#6/7 from exploratory laparotomy sigmoid resection for perforated diverticulitis/abdominal washout, abdominal wall closure and colostomy creation She is overall doing better without fevers White blood cell count is stable Her colostomy is functioning Continue to encourage ambulation spirometry Continue low fiber diet Continue her Abdominal drain as well as her Faisal in her incision I think she is getting close to being able to be stable for discharge to likely inpatient rehab Subjective Patient doing okay. She is tolerating a low fiber diet. + ostomy working. Denies chest pain or shortness of breath. Some ongoing abdominal pain that is manageable. Physical Exam Physical Exam: awake, alert, appears fatigued Respiratory: normal respiratory effort on supplemental O2 Gastrointestinal (Abdomen): Percussion/Palpation: + abdomen tender (mild generalized discomfort to palpation) and abdomen soft + ostomy viable and functioning. Midline jennifer intact with faisal drain in place, some purulent drainage noted inferiorly Results & Data Vital Signs (Past 12 Hours) Vital Signs Temp Pulse Resp BP Pulse Ox O2 Del Method O2 Flow Rate 05/05/24 07:35 98.2 F 78 17 157/78 H 96 Nasal Cannula 2.0 05/05/24 03:10 97.7 F 73 23 151/82 H 98 Nasal Cannula 05/04/24 23:46 97.5 F L 77 24 170/95 H 97 Nasal Cannula PG Care Time/CCT Total # of Minutes Spent Total Time Spent with Patient: Total time spent is greater than 50% in coordination of care (as documented) at patient's floor/unit and/or counseling patient: Coding Level of Care Code 44014 Post Operative Follow-Up Diagnoses Bowel perforation K63.1
[2024-05-05] MEDS: POTASSIUM CHLORIDE CRTAB 20 MEQ TABCR PO SCH ×2 (08:52→10:03)
--- NOTE | 2024-05-05 18:08 | Hospitalist Progress Note ---
Date of Service May 05, 2024 Assessment & Plan (1) Sepsis: Plan: Sepsis secondary to bowel perforation/ fecal peritonitis. clinically patient appears to be doing better, on Zosyn and Caspofungin, CRP is reducing, wound culture is currently pending for final results WBC is improving, less pain, will continue to mobilize patient and increase activity, will not pursue CT unless pt has clinical deterioration Discussed situational depression for this patient she is a homeopathic person and likes to take natural substances Daughter present at bedside and updated. replete electrolytes , troubled by high ostomy output, will eval for ways to reduce outpt Seroquel will try one dose for sleep Admission and Anticipated Discharge Date Admission Date: April 28, 2024 Subjective pt continues to improve, leukocytosis is improving, abdominal pain resolving family is at the bedside and updated she is having some disrupted sleep she remains reluctant to begin ostomy care Physical Exam Physical Exam: pt looks improved cardiac exam is regular lungs are diminished at the bases abdomen id with nabs, soft and only with mildly tender Results & Data Results & Data Vital Signs (Past 12 Hours) Vital Signs Temp Pulse Pulse Resp BP Pulse Ox O2 Del Method 05/05/24 15:05 78 05/05/24 14:49 98.6 F 79 17 148/86 H 94 Room Air 05/05/24 12:01 98.2 F 72 17 143/85 H 96 Room Air 05/05/24 08:00 79 05/05/24 08:00 Nasal Cannula 05/05/24 07:35 98.2 F 78 17 157/78 H 96 Nasal Cannula O2 Flow Rate 05/05/24 15:05 05/05/24 14:49 05/05/24 12:01 05/05/24 08:00 05/05/24 08:00 3 05/05/24 07:35 2.0 Laboratory Results review cbc review prp PG Care Time/CCT Total # of Minutes Spent Total Time Spent with Patient: Total time spent is greater than 50% in coordination of care (as documented) at patient's floor/unit and/or counseling patient: Coding Level of Care Code 47624 SUB INP/OBS CARE 2/35MIN Diagnoses Sepsis A41.9 Severe sepsis acute organ dysfunction type: acute renal failure Severe sepsis shock status: without septic shock (1) Sepsis Severe sepsis acute organ dysfunction type: acute renal failure Severe sepsis shock status: without septic shock
[2024-05-05] MEDS: POTASSIUM CHLORIDE 40 MEQ in SODIUM CHLORIDE 0.9% 1,000 ML IV SCH (18:39)
[2024-05-05] MEDS: QUEtiapine FUMARATE 25 MG TABLET PO ONE (20:08)
[2024-05-06 06:55] LABS: Basophils # (auto) 0.05 K/uL (0.00-0.20); Basophils % (auto) 0.3 %; Eosinophils # (auto) 0.08 K/uL (0.00-0.50); Eosinophils % (auto) 0.5 %; Hematocrit (blood only) 35.1 % (37.0-47.0); Hemoglobin 11.7 g/dl (12.0-16.0); Immature Granulocytes # (auto) 0.21 K/uL (0.01-0.20); Immature Granulocytes % (auto) 1.2 %; Lymphocytes # (auto) 1.06 K/uL (1.20-3.40); Mean Corpuscular Hemoglobin 29.5 pg (25.0-34.0); Mean Corpuscular Hgb Conc 33.3 g/dL (32.0-36.0); Mean Corpuscular Volume 88.6 fL (80.0-100.0); Mean Platelet Volume 10.6 fL (9.4-12.4); Monocytes # (auto) 0.87 K/uL (0.11-0.59); Monocytes % (auto) 4.9 %; Neutrophils # (auto) 15.42 K/uL (1.40-6.50); Neutrophils % (auto) 87.1 %; Platelet Count 498 K/uL (130-400); RDW Coefficient of Variation 14.6 % (11.5-14.5); RDW Standard Deviation 46.9 fL (36.4-46.3); Red Blood Count 3.96 M/uL (4.20-5.40); White Blood Count 17.69 K/ul (4.8-10.8)
--- NOTE | 2024-05-06 07:20 | Hospitalist Progress Note ---
Date of Service May 06, 2024 Assessment & Plan (1) Sepsis: Plan: Sepsis secondary to bowel perforation/ fecal peritonitis. clinically patient appears to be doing better, on Zosyn and Caspofungin, CRP is reducing, wound culture all high counts likely soiled WBC is about the same, less pain, some increase in platelets, will continue to mobilize patient and increase activity Discussed situational depression for this patient she is a homeopathic person and likes to take natural substances Son present at bedside and updated. replete electrolytes , troubled by high ostomy output, continue to follow electrolytes Seroquel 12.5 mg for sleep Admission and Anticipated Discharge Date Admission Date: April 28, 2024 Physical Exam Physical Exam: pt continues to look improved cardiac exam is regular lungs are diminished at the bases abdomen id with nabs, soft and only with tenderness to exam on right side of stoma, no rebound no guarding Results & Data Results & Data Vital Signs (Past 12 Hours) Vital Signs Temp Pulse Pulse Resp BP Pulse Ox O2 Del Method 05/06/24 03:01 97.7 F 81 24 165/87 H 90 Room Air 05/05/24 23:02 77 05/05/24 23:00 97.7 F 80 23 157/86 H 91 Room Air 05/05/24 20:00 97.7 F 80 22 159/95 H 94 Room Air Laboratory Results Reviewed CBC reviewed chemistry PG Care Time/CCT Total # of Minutes Spent Total Time Spent with Patient: Total time spent is greater than 50% in coordination of care (as documented) at patient's floor/unit and/or counseling patient: Coding Level of Care Code 49967 SUB INP/OBS CARE 2/35MIN Diagnoses Sepsis A41.9 Severe sepsis acute organ dysfunction type: acute renal failure Severe sepsis shock status: without septic shock (1) Sepsis Severe sepsis acute organ dysfunction type: acute renal failure Severe sepsis shock status: without septic shock
[2024-05-06 07:21] LABS: Calcium 7.9 mg/dl (8.6-10.3); Potassium 3.9 mmol/L (3.5-5.1)
[2024-05-06 07:29] LABS: Creatinine Clr Calc Pharmacy 94.4 ml/min; Est GFR (African American) 111.3 ml/min
--- NOTE | 2024-05-06 07:50 | Surgery Progress Note ---
Date of Service May 06, 2024 Assessment & Plan (1) Bowel perforation: Plan: s/p exlap for bowel perforation and colostomy formation with washout x2 WBC 17 (16). K 3.9 Vitals stable and patient afebrile. On room air IV caspo d/c'd yesterday, remains on IV zosyn Tolerating low fiber diet and ostomy functioning Will check on wound and ostomy later this AM as pt is currently sitting up in bed enjoying bfast encourage pulmonary toilet and ambulation. PT/OT ordered Ongoing wound care- continue daily vs BID dressing changes Will continue to monitor through wknd. pt remains stable. no need for repeat CT scan unless start spiking fevers or jump in WBC possible dispo to facility early next wk on po abx if continues to progress well [facility] covering the wknd Admission and Anticipated Discharge Date Admission Date: April 28, 2024 Subjective Patient feeling okay. Tolerating diet, no nausea/vomiting. Still has abdominal pain, mostly with movement. No CP/SOB. Physical Exam Physical Exam: awake/alert, appears in improved spirits Respiratory: normal respiratory effort Results & Data Vital Signs (Past 12 Hours) Vital Signs Temp Pulse Pulse Resp BP Pulse Ox O2 Del Method 05/06/24 03:01 97.7 F 81 24 165/87 H 90 Room Air 05/05/24 23:02 77 05/05/24 23:00 97.7 F 80 23 157/86 H 91 Room Air 05/05/24 20:00 97.7 F 80 22 159/95 H 94 Room Air PG Care Time/CCT Total # of Minutes Spent Total Time Spent with Patient: Total time spent is greater than 50% in coordination of care (as documented) at patient's floor/unit and/or counseling patient: Coding Level of Care Code 36373 Post Operative Follow-Up Diagnoses Bowel perforation K63.1
[2024-05-06] MEDS ORDERED: METHYLCELLULOSE POWDER 454 GM JAR PO SCH (09:00)
[2024-05-06] MEDS: ACETAMINOPHEN SUSP 160 MG/5 ML BTL PO SCH (13:57)
[2024-05-06] MEDS: oxyCODONE HCL IR 5 MG TAB (IMMEDIATE RELEASE) PO PRN (13:58)
[2024-05-06] MEDS: QUEtiapine FUMARATE 25 MG TABLET PO ONE (21:10)
[2024-05-07 07:00] LABS: Basophils # (auto) 0.03 K/uL (0.00-0.20); Basophils % (auto) 0.2 %; Eosinophils # (auto) 0.08 K/uL (0.00-0.50); Eosinophils % (auto) 0.5 %; Hematocrit (blood only) 30.2 % (37.0-47.0); Hemoglobin 10.2 g/dl (12.0-16.0); Immature Granulocytes # (auto) 0.15 K/uL (0.01-0.20); Immature Granulocytes % (auto) 0.9 %; Lymphocytes # (auto) 1.01 K/uL (1.20-3.40); Lymphocytes % (auto) 6.4 %; Mean Corpuscular Hemoglobin 29.7 pg (25.0-34.0); Mean Corpuscular Hgb Conc 33.8 g/dL (32.0-36.0); Mean Platelet Volume 10.7 fL (9.4-12.4); Monocytes # (auto) 1.22 K/uL (0.11-0.59); Monocytes % (auto) 7.7 %; Neutrophils # (auto) 13.32 K/uL (1.40-6.50); Neutrophils % (auto) 84.3 %; Platelet Count 567 K/uL (130-400); RDW Coefficient of Variation 14.7 % (11.5-14.5); RDW Standard Deviation 47.4 fL (36.4-46.3); Red Blood Count 3.43 M/uL (4.20-5.40); White Blood Count 15.81 K/ul (4.8-10.8)
[2024-05-07 07:05] LABS: Calcium 7.8 mg/dl (8.6-10.3); Magnesium 1.6 mg/dl (1.7-2.4); Potassium 3.4 mmol/L (3.5-5.1)
[2024-05-07 07:11] LABS: C Reactive Protein 25.06 mg/dl (0-0.5); Creatinine Clr Calc Pharmacy 85.8 ml/min; Est GFR (African American) 107.8 ml/min; Est GFR (Non-African American) 93.1 ml/min
--- NOTE | 2024-05-07 08:20 | Hospitalist Progress Note ---
Date of Service May 07, 2024 Assessment & Plan (1) Sepsis: Plan: Sepsis secondary to bowel perforation/ fecal peritonitis. clinically patient appears to be doing better, on Zosyn. completed Caspofungin, , wound culture all high counts likely soiled anemia likely post op from blood loss Patient's white count is in the teens. However platelets and CRP is rising. Peristomal pain on the right will prompt CT scan abdomen pelvis on 05/07/2024. Discussed situational depression for this patient she is a homeopathic person and likes to take natural substances replete electrolytes , troubled by high ostomy output, replete potassium and magnesium Added boost supplementation for nutrition Admission and Anticipated Discharge Date Admission Date: April 28, 2024 Subjective Patient seen in the company of her family Says she is doing well on walking although examinations has fairly intense pain to the right side of her stoma. Has had a July reduction of her white count and platelet count is rising which could be acute phase reaction., CRP is also going up Left nutritional augmentation with supplements and pursue CT abdomen pelvis on 05/07/2024 Physical Exam Physical Exam: pt continues to look improved cardiac exam is regular lungs are diminished at the bases abdomen id with nabs, soft and remains with tenderness to exam on right side of stoma, no rebound no guarding Results & Data Results & Data Vital Signs (Past 12 Hours) Vital Signs Temp Pulse Resp BP Pulse Ox O2 Del Method 05/07/24 08:07 98.4 F 86 18 155/51 H 94 Room Air Laboratory Results Reviewed CBC reviewed chemistry reviewed CRP PG Care Time/CCT Total # of Minutes Spent Total Time Spent with Patient: Total time spent is greater than 50% in coordination of care (as documented) at patient's floor/unit and/or counseling patient: Coding Level of Care Code 79417 SUB INP/OBS CARE 3/50MIN Diagnoses Sepsis A41.9 Severe sepsis acute organ dysfunction type: acute renal failure Severe sepsis shock status: without septic shock (1) Sepsis Severe sepsis acute organ dysfunction type: acute renal failure Severe sepsis shock status: without septic shock
[2024-05-07] MEDS: MAGNESIUM SULFATE / D5W 1 GM/100 ML BAG IV SCH (09:49)
[2024-05-07] MEDS: POTASSIUM CHLORIDE 20 MEQ/15 ML UDC PO SCH (09:49)
--- NOTE | 2024-05-07 16:32 | Surgery Progress Note ---
Date of Service May 07, 2024 Assessment & Plan (1) Bowel perforation: Plan: s/p exp lap, Marc's and washout. Ostomy is functional and MARIIA not cloudy but still with pain and persistent leukocytosis. CT being done to look for fluid collections / abscesses that may need perc drainage Continue diet. If CT negative, could consider adding lomotil to slow output of ostomy. Admission and Anticipated Discharge Date Admission Date: April 28, 2024 Subjective Complaining of abdominal pain, worse if she tries to shift position in the bed. Not related to eating. Ostomy is functioning (high liquid output). No nausea but does note heartburn/ reflux. On maalox and pepcid. CT scan ordered by Dr. Garcia. No fevers. Physical Exam Constitutional: WD/WN, vitals as above Gastrointestinal (Abdomen): Inspection/Auscultation: abdomen normal to inspection, + abdomen distended (mild), normal bowel sounds, + abdominal surgical incision (dressing changed, faisal in place, no sign of active infection. Repacked) and + abdominal surgical drain present (not cloudy) Percussion/Palpation: + abdomen tender and abdomen soft; no guarding Results & Data Vital Signs (Past 12 Hours) Vital Signs Temp Pulse Resp BP Pulse Ox O2 Del Method 05/07/24 14:59 36.5 C 66 18 154/83 H 96 Room Air 05/07/24 08:07 36.9 C 86 18 155/51 H 94 Room Air Laboratory Results Abnormal lab results 05/07/24 Range/Units 06:17 WBC 15.81 H (4.8-10.8) K/ul RBC 3.43 L (4.20-5.40) M/uL Hgb 10.2 L (12.0-16.0) g/dl Hct 30.2 L (37.0-47.0) % RDW Std Deviation 47.4 H (36.4-46.3) fL RDW Coeff of Anahi 14.7 H (11.5-14.5) % Plt Count 567 H (130-400) K/uL Neut # (Auto) 13.32 H (1.40-6.50) K/uL Lymph # (Auto) 1.01 L (1.20-3.40) K/uL [place] # (Auto) 1.22 H (0.11-0.59) K/uL Potassium 3.4 L (3.5-5.1) mmol/L Creatinine 0.55 L (0.6-1.2) mg/dl Glucose 110 H (70-99(Fasting)) mg/dl Calcium 7.8 L (8.6-10.3) mg/dl Magnesium 1.6 L (1.7-2.4) mg/dl C-Reactive Protein 25.06 H (0-0.5) mg/dl
[2024-05-07] MEDS: ALUMINUM/MAGNESIUM SUSP 30 ML UDC PO PRN (16:37)
[2024-05-07] MEDS: METHYLCELLULOSE POWDER 454 GM JAR PO SCH (19:26)
[2024-05-07] MEDS: FAMOTIDINE 40 MG TABLET PO SCH (19:27)
--- NOTE | 2024-05-07 19:43 | CT Scan Report ---
CT SCAN OF THE ABDOMEN AND PELVIS WITHOUT IV CONTRAST CLINICAL HISTORY: Right-sided abdominal pain. Recent bowel perforation. COMPARISON STUDY: Abdominal CT dated 04/28/2024. TECHNIQUE: CT scan of the abdomen and pelvis is performed from the lung bases to the proximal femora. Images are reviewed in the axial, sagittal, and coronal planes. IV contrast was not administered for this examination as per the referring clinician. Note that the examination was performed in signific antly suboptimal fashion without IV contrast. Oral contrast was utilized. A dose lowering technique w as utilized adhering to the principles of ALARA. CT DOSE: 1106.28 mGy.cm FINDINGS: Lung bases: The heart is normal in size and without pericardial effusion. There are coronary artery c alcifications. Emphysematous change is noted. There are jljqt-qq-[id number] pleural effusions with depe ndent consolidation. These are new from previous. Liver: The unenhanced liver is normal in size, contour, and attenuation. There is no intrahepatic dale iary ductal dilatation. Gallbladder: The gallbladder wall appears moderately thickened, likely secondary to the adjacent flui d collection. Spleen: Normal in size and attenuation. Pancreas: The unenhanced pancreas is grossly unremarkable. Adrenal glands: Unremarkable. Kidneys: The unenhanced kidneys are normal in size and without hydronephrosis. There are no renal tim culi identified. There is no evidence of contour deforming renal mass lesion. Abdominal vasculature: The abdominal aorta is normal in course and caliber noting moderate atheroscle rotic calcification. Bowel: There is postsurgical change from left-sided colon resection with left lower quadrant colostom y and Marc pouch formation. No bowel obstruction is seen. Enteric contrast reaches the ostomy. Th ere is diverticulosis of the residual sigmoid. The appendix is surgically absent. Peritoneum: A midline surgical incision is noted. A surgical drain is in place from a right pelvic ap proach. The tip is coiled in the left midabdomen. There is a tiny focus of intraperitoneal free air s een on the anterior aspect of the liver. Additional tiny foci of free air are scattered throughout th e mesentery. A small volume of ascites is observed. There is a large multiloculated thick-walled flui d collection scalloping the superior aspect of the liver below the diaphragm. This is best seen on ax ial image #56. The more posterior loculation measures approximately 11 x 10 x 3.5 cm as seen on image #66, and the more anterior loculation on image #50 measures approximately 6 x 2 x 8.5 cm. These lance ections appear to communicate. A small developing fluid collection containing a small focus of gas in the right lower quadrant mesentery on image #187 measures 2.5 x 2.4 x 3.6 cm. Lymphadenopathy: None. Pelvic viscera: The bladder is mildly distended and contains foci of additional gas. The uterus and a dnexa are normal as imaged. Skeletal structures: The skeletal structures are osteopenic. There is mild lumbosacral spondylosis. T here are bilateral pars defects at L5 with severe disc space narrowing and 10 mm of anterolisthesis o f L5 and S1. No lytic or blastic lesions are seen. Soft tissues: Body wall edema. IMPRESSION: 1. There is postsurgical change from left colon resection with left lower quadrant colostomy and Gonsalves dixon pouch formation. No bowel obstruction is seen. 2. A surgical drain is in place. There is a small volume of ascites, as well as tiny foci of nonspeci fic intraperitoneal free air. 3. There is a large multiloculated thick-walled fluid collection in the right upper quadrant below th e diaphragm which scallops the underlying liver. This is highly suspicious for abscess. 4. There is an additional 3.5 cm developing fluid collection in the right lower quadrant mesentery. 5. There are small pleural effusions with dependent consolidation. This is new from previous. 6. Emphysema and coronary artery atherosclerosis. 7. Additional findings as above. ACT 112: Negative or not required by law. Electronically signed by: James Paulino M.D. 05/07/2024 7:41 PM
[2024-05-08] MEDS: POTASSIUM CHLORIDE CRTAB 20 MEQ TABCR PO SCH (08:36)
--- NOTE | 2024-05-08 10:17 | Surgery Progress Note ---
Date of Service May 08, 2024 Assessment & Plan (1) Bowel perforation: Plan: s/p exp lap, Marc's and washout. CT scan findings reviewed with pt and family: 1) large collection under right diaphragm - likely abscess. Will need perc drainage and this may need transfer if cannot be done here. 2) smaller 3.5 cm developing collection right lower quadrant - will need radiology review to see if it can also be drained 3) expected postop changes, no sign of bowel obstruction 4) dependent changes in the lungs with small pleural effusions Will need drainage of the largest (and potentially second if possible) collection right subdiaphragmatic Admission and Anticipated Discharge Date Admission Date: April 28, [address] scan done yesterday shows abscess under right diaphragm. Notes severe pain when she shifts position, mainly on the right side now. No nausea. Ostomy functioning. family at bedside. Reflux/ heartburn from yesterday has improved. Physical Exam Constitutional: WD/WN, vitals as above Gastrointestinal (Abdomen): Inspection/Auscultation: abdomen normal to inspection, + abdomen distended (mild), normal bowel sounds, + abdominal surgical incision (dressing changed, faisal in place, no sign of active infection. Repacked) and + abdominal surgical drain present (not cloudy) Percussion/Palpation: + abdomen tender and abdomen soft; no guarding Results & Data Vital Signs (Past 12 Hours) Vital Signs Temp Pulse Resp BP Pulse Ox O2 Del Method 05/08/24 07:46 36.9 C 83 16 154/85 H 94 Room Air Diagnostic Findings [address] SCAN OF THE ABDOMEN AND PELVIS WITHOUT IV CONTRAST CLINICAL HISTORY: Right-sided abdominal pain. Recent bowel perforation. COMPARISON STUDY: Abdominal CT dated 04/28/2024. TECHNIQUE: CT scan of the abdomen and pelvis is performed from the lung bases to the proximal femora. Images are reviewed in the axial, sagittal, and coronal planes. IV contrast was not administered for this examination as per the referring clinician. Note that the examination was performed in significantly suboptimal fashion without IV contrast. Oral contrast was utilized. A dose lowering technique was utilized adhering to the principles of ALARA. CT DOSE: 1106.28 mGy.cm FINDINGS: Lung bases: The heart is normal in size and without pericardial effusion. There are coronary artery calcifications. Emphysematous change is noted. There are [id number]-[id number] pleural effusions with dependent consolidation. These are new from previous. Liver: The unenhanced liver is normal in size, contour, and attenuation. There is no intrahepatic biliary ductal dilatation. Gallbladder: The gallbladder wall appears moderately thickened, likely secondary to the adjacent fluid collection. Spleen: Normal in size and attenuation. Pancreas: The unenhanced pancreas is grossly unremarkable. Adrenal glands: Unremarkable. Kidneys: The unenhanced kidneys are normal in size and without hydronephrosis. There are no renal calculi identified. There is no evidence of contour deforming renal mass lesion. Abdominal vasculature: The abdominal aorta is normal in course and caliber noting moderate atherosclerotic calcification. Bowel: There is postsurgical change from left-sided colon resection with left lower quadrant colostomy and Marc pouch formation. No bowel obstruction is seen. Enteric contrast reaches the ostomy. There is diverticulosis of the residual sigmoid. The appendix is surgically absent. Peritoneum: A midline surgical incision is noted. A surgical drain is in place from a right pelvic approach. The tip is coiled in the left midabdomen. There is a tiny focus of intraperitoneal free air seen on the anterior aspect of the liver. Additional tiny foci of free air are scattered throughout the mesentery. A small volume of ascites is observed. There is a large multiloculated thick- walled fluid collection scalloping the superior aspect of the liver below the diaphragm. This is best seen on axial image #56. The more posterior loculation measures approximately 11 x 10 x 3.5 cm as seen on image #66, and the more anterior loculation on image #50 measures approximately 6 x 2 x 8.5 cm. These collections appear to communicate. A small developing fluid collection containing a small focus of gas in the right lower quadrant mesentery on image #187 measures 2.5 x 2.4 x 3.6 cm. Lymphadenopathy: None. Pelvic viscera: The bladder is mildly distended and contains foci of additional gas. The uterus and adnexa are normal as imaged. Skeletal structures: The skeletal structures are osteopenic. There is mild lumbosacral spondylosis. There are bilateral pars defects at L5 with severe disc space narrowing and 10 mm of anterolisthesis of L5 and S1. No lytic or blastic lesions are seen. Soft tissues: Body wall edema. IMPRESSION: 1. There is postsurgical change from left colon resection with left lower quadrant colostomy and Marc pouch formation. No bowel obstruction is seen. 2. A surgical drain is in place. There is a small volume of ascites, as well as tiny foci of nonspecific intraperitoneal free air. 3. There is a large multiloculated thick-walled fluid collection in the right upper quadrant below the diaphragm which scallops the underlying liver. This is highly suspicious for abscess. 4. There is an additional 3.5 cm developing fluid collection in the right lower quadrant mesentery. 5. There are small pleural effusions with dependent consolidation. This is new from previous. 6. Emphysema and coronary artery atherosclerosis. 7. Additional findings as above.
[2024-05-08 11:54] LABS: Basophils # (auto) 0.03 K/uL (0.00-0.20); Basophils % (auto) 0.2 %; Eosinophils # (auto) 0.04 K/uL (0.00-0.50); Eosinophils % (auto) 0.3 %; Hemoglobin 10.6 g/dl (12.0-16.0); Immature Granulocytes # (auto) 0.13 K/uL (0.01-0.20); Immature Granulocytes % (auto) 0.9 %; Lymphocytes # (auto) 0.97 K/uL (1.20-3.40); Lymphocytes % (auto) 6.5 %; Mean Corpuscular Hgb Conc 34.2 g/dL (32.0-36.0); Mean Corpuscular Volume 87.8 fL (80.0-100.0); Mean Platelet Volume 10.1 fL (9.4-12.4); Monocytes # (auto) 1.07 K/uL (0.11-0.59); Monocytes % (auto) 7.2 %; Neutrophils # (auto) 12.63 K/uL (1.40-6.50); Neutrophils % (auto) 84.9 %; Platelet Count 768 K/uL (130-400); RDW Coefficient of Variation 14.5 % (11.5-14.5); RDW Standard Deviation 45.8 fL (36.4-46.3); Red Blood Count 3.53 M/uL (4.20-5.40); White Blood Count 14.87 K/ul (4.8-10.8)
[2024-05-08 12:12] LABS: Calcium 7.6 mg/dl (8.6-10.3); Creatinine Clr Calc Pharmacy 82.7 ml/min; Est GFR (African American) 106.6 ml/min; Phosphorus 3.2 mg/dl (2.5-4.9)
[2024-05-08 12:36] LABS: Folate (Folic Acid),Ser orPlas 10.89 ng/ml (>5.38)
--- NOTE | 2024-05-08 14:38 | Hospitalist Progress Note ---
Date of Service May 08, 2024 Assessment & Plan (1) Sepsis: Plan: Sepsis secondary to bowel perforation/ fecal peritonitis. clinically patient appears to be doing better, on Zosyn. Imaging of abdomen due to pain shows some diaphragmatic suprahepatic abscess and also abscess in the right lower quadrant. Will reinstitute caspofungin, Infectious disease consultation will need to be called in the morning of 05/09. Coordination with interventional radiology to consider drainage and drain placement force subdiaphragmatic abscess anemia likely post op from blood loss iron studies check shows low iron but low binding capacity suggestive this may be inflammatory anemia Patient's white count is in the teens. However platelets and CRP is rising. Any repeat laboratories on 05/09 Discussed situational depression for this patient she is a homeopathic person and likes to take natural substances replete electrolytes , troubled by high ostomy output, replete potassium and magnesium Added boost supplementation for nutrition Patient may eventually benefit from rehab placement Admission and Anticipated Discharge Date Admission Date: April 28, [address] scan done yesterday shows abscess under right diaphragm. also 3.5 cm fluid collection in right lower mesentary. Notes severe pain when she shifts position, mainly on the right side now. No nausea. Ostomy functioning. family at bedside. Reflux/ heartburn has improved. Physical Exam Physical Exam: pt continues to look improved cardiac exam is regular lungs are diminished at the bases abdomen is with nabs, soft and remains with tenderness to exam on right side of stoma, no rebound some guarding Results & Data Results & Data Vital Signs (Past 12 Hours) Vital Signs Temp Pulse Resp BP Pulse Ox O2 Del Method 05/08/24 07:46 98.4 F 83 16 154/85 H 94 Room Air Laboratory Results Reviewed CBC reviewed chemistry Platelets continue to climb exclude acute phase reactant PG Care Time/CCT Total # of Minutes Spent Total Time Spent with Patient: Total time spent is greater than 50% in coordination of care (as documented) at patient's floor/unit and/or counseling patient: Coding Level of Care Code 47261 SUB INP/OBS CARE 3/50MIN Diagnoses Sepsis A41.9 Severe sepsis acute organ dysfunction type: acute renal failure Severe sepsis shock status: without septic shock (1) Sepsis Severe sepsis acute organ dysfunction type: acute renal failure Severe sepsis shock status: without septic shock
[2024-05-08] MEDS: CASPOFUNGIN 70 MG in SODIUM CHLORIDE 0.9% 250 ML IV ONE (15:44)
[2024-05-09 07:19] LABS: Basophils # (auto) 0.04 K/uL (0.00-0.20); Basophils % (auto) 0.3 %; Eosinophils # (auto) 0.16 K/uL (0.00-0.50); Eosinophils % (auto) 1.1 %; Hematocrit (blood only) 31.1 % (37.0-47.0); Hemoglobin 10.5 g/dl (12.0-16.0); Immature Granulocytes % (auto) 0.7 %; Lymphocytes # (auto) 1.11 K/uL (1.20-3.40); Lymphocytes % (auto) 7.5 %; Mean Corpuscular Hgb Conc 33.8 g/dL (32.0-36.0); Mean Corpuscular Volume 88.9 fL (80.0-100.0); Monocytes # (auto) 1.18 K/uL (0.11-0.59); Monocytes % (auto) 7.9 %; Neutrophils # (auto) 12.28 K/uL (1.40-6.50); Neutrophils % (auto) 82.5 %; Platelet Count 873 K/uL (130-400); RDW Coefficient of Variation 14.6 % (11.5-14.5); RDW Standard Deviation 46.6 fL (36.4-46.3); White Blood Count 14.87 K/ul (4.8-10.8)
[2024-05-09 07:33] LABS: BUN Creatinine Ratio 13.3 (10-20); C Reactive Protein 24.87 mg/dl (0-0.5); Calcium 8.2 mg/dl (8.6-10.3); Creatinine Clr Calc Pharmacy 76.9 ml/min; Est GFR (African American) 104.8 ml/min; Est GFR (Non-African American) 90.4 ml/min; Potassium 3.6 mmol/L (3.5-5.1)
--- NOTE | 2024-05-09 08:07 | Surgery Progress Note ---
Date of Service May 09, 2024 Assessment & Plan (1) Bowel perforation: Plan: pt tolerating low fiber + ostomy function WBC 14 (14) ongoing abd pain had CT abd/pelvis 05/07 showing poss. abscess in RUQ /RLQ IR is not in house today, will plan for IR drainage tomorrow NPO MN Hold Lovenox in AM VSS Continue IV antibiotics ID consult was placed Admission and Anticipated Discharge Date Admission Date: April 28, 2024 Supervising Physician Co-Signing Physician Notes I personally saw and evaluated the patient with Mallory BENTLEY and agree with the assessment and plan. 73 yo female s/p exploratory laparotomy sigmoid resection for perforated diverticulitis/abdominal washout, abdominal wall closure and colostomy creation She continues to overall do well CT of the abdomen pelvis from the weekend was reviewed Will see if IR can drain something percutaneously Her white count is as low as it has been since admission No plans for any surgical drainage as this would certainly cause more harm than good Continue IV antibiotics, follow-up ID consult Continue her Phoebe and Omar drain in pelvis Subjective pt reports / pain with movements tolerating low fiber, +ostomy o/p Review of Systems Constitutional: no fever and no chills Respiratory: no dyspnea Cardiovascular: no chest pain Gastrointestinal: + abdominal pain; no nausea and no vomit ing Physical Exam Physical Exam: alert oriented Constitutional: cooperative and comfortable; no acute distress Respiratory: normal respiratory effort and able to speak in complete sentences; no respiratory distress Cardiovascular: Rate/Rhythm: regular rate Gastrointestinal (Abdomen): Inspection/Auscultation: + abdomen distended, + abdominal surgical incision (jennifer midline , CDI , no s/s infection noted , phoebe ) and + abdominal surgical drain present Percussion/Palpation: + abdomen tender and + abdomen firm Results & Data Vital Signs (Past 12 Hours) Vital Signs Temp Pulse Resp BP Pulse Ox O2 Del Method 05/08/24 20:55 98.8 F 74 16 166/84 H 95 Room Air Diagnostic Findings [facility] [place] [phone] CT Scan Report Patient: CORINNA BOBBY Admit Date: 04/28/24 MR#: [id number] Address1: [address] Acct ID:[id number] Address2: Date: 1950 [facility] Zip: [place] [address] Age: 73 Location: 3W Sex: F Room/Bed: [facility] Att Phy: Omar Leigh DO Diagnosis: S/P BOWEL RESECTION, INTUBATED Dagmar Phy: Felix Trejo DO Service Date: 05/07/24 Fam Phy: Interpreting Phy: [facility]ino [facility] Phy: Omar Leigh DO Ordering Phy: Tod Garcia MD cc: ~ CT SCAN OF THE ABDOMEN AND PELVIS WITHOUT IV CONTRAST CLINICAL HISTORY: Right-sided abdominal pain. Recent bowel perforation. COMPARISON STUDY: Abdominal CT dated 04/28/2024. TECHNIQUE: CT scan of the abdomen and pelvis is performed from the lung bases to the proximal femora. Images are reviewed in the axial, sagittal, and coronal planes. IV contrast was not administered for this examination as per the referring clinician. Note that the examination was performed in significantly suboptimal fashion without IV contrast. Oral contrast was utilized. A dose lowering technique was utilized adhering to the principles of ALARA. CT DOSE: 1106.28 mGy.cm FINDINGS: Lung bases: The heart is normal in size and without pericardial effusion. There are coronary artery calcifications. Emphysematous change is noted. There are nexox-gp-[id number] pleural effusions with dependent consolidation. These are new from previous. Liver: The unenhanced liver is normal in size, contour, and attenuation. There is no intrahepatic biliary ductal dilatation. Gallbladder: The gallbladder wall appears moderately thickened, likely secondary to the adjacent fluid collection. Spleen: Normal in size and attenuation. Pancreas: The unenhanced pancreas is grossly unremarkable. Adrenal glands: Unremarkable. Kidneys: The unenhanced kidneys are normal in size and without hydronephrosis. There are no renal calculi identified. There is no evidence of contour deforming renal mass lesion. Abdominal vasculature: The abdominal aorta is normal in course and caliber noting moderate atherosclerotic calcification. Bowel: There is postsurgical change from left-sided colon resection with left lower quadrant colostomy and Marc pouch formation. No bowel obstruction is seen. Enteric contrast reaches the ostomy. There is diverticulosis of the residual sigmoid. The appendix is surgically absent. Peritoneum: A midline surgical incision is noted. A surgical drain is in place from a right pelvic approach. The tip is coiled in the left midabdomen. There is a tiny focus of intraperitoneal free air seen on the anterior aspect of the liver. Additional tiny foci of free air are scattered throughout the mesentery. A small volume of ascites is observed. There is a large multiloculated thick- walled fluid collection scalloping the superior aspect of the liver below the diaphragm. This is best seen on axial image #56. The more posterior loculation measures approximately 11 x 10 x 3.5 cm as seen on image #66, and the more anterior loculation on image #50 measures approximately 6 x 2 x 8.5 cm. These collections appear to communicate. A small developing fluid collection containing a small focus of gas in the right lower quadrant mesentery on image #187 measures 2.5 x 2.4 x 3.6 cm. Lymphadenopathy: None. Pelvic viscera: The bladder is mildly distended and contains foci of additional gas. The uterus and adnexa are normal as imaged. Skeletal structures: The skeletal structures are osteopenic. There is mild lumbosacral spondylosis. There are bilateral pars defects at L5 with severe disc space narrowing and 10 mm of anterolisthesis of L5 and S1. No lytic or blastic lesions are seen. Soft tissues: Body wall edema. IMPRESSION: 1. There is postsurgical change from left colon resection with left lower quadrant colostomy and Marc pouch formation. No bowel obstruction is seen. 2. A surgical drain is in place. There is a small volume of ascites, as well as tiny foci of nonspecific intraperitoneal free air. 3. There is a large multiloculated thick-walled fluid collection in the right upper quadrant below the diaphragm which scallops the underlying liver. This is highly suspicious for abscess. 4. There is an additional 3.5 cm developing fluid collection in the right lower quadrant mesentery. 5. There are small pleural effusions with dependent consolidation. This is new from previous. 6. Emphysema and coronary artery atherosclerosis. 7. Additional findings as above. ACT 112: Negative or not required by law. Electronically signed by: James Paulino M.D. 05/07/2024 7:41 PM Dictated: 05/07/240 Transcribed: 05/07/24 184 Results CBC w Diff Results: RBC 3.50 M/uL (4.20-5.40) L 05/09/24 WBC 14.87 K/ul (4.8-10.8) H 05/09/24 Hgb 10.5 g/dl (12.0-16.0) L 05/09/24 Hct 31.1 % (37.0-47.0) L 05/09/24 MCV 88.9 fL (80.0-100.0) 05/09/24 MCH 30.0 pg (25.0-34.0) 05/09/24 MCHC 33.8 g/dL (32.0-36.0) 05/09/24 RDW Standard Deviation 46.6 fL (36.4-46.3) H 05/09/24 RDW Coefficient of Variation 14.6 % (11.5-14.5) H 05/09/24 Plt Count 873 K/uL (130-400) H 05/09/24 MPV 10.0 fL (9.4-12.4) 05/09/24 Neutrophils (%) (Auto) 82.5 % 05/09/24 Lymphocytes (%) (Auto) 7.5 % 05/09/24 Monocytes # (Auto) 1.18 K/uL (0.11-0.59) H 05/09/24 Eosinophils # (Auto) 0.16 K/uL (0.00-0.50) 05/09/24 Immature Granulocyte % (Auto) 0.7 % 05/09/24 Neutrophils # (Auto) 12.28 K/uL (1.40-6.50) H 05/09/24 Lymphocytes # (Auto) 1.11 K/uL (1.20-3.40) L 05/09/24 Monocytes # (Auto) 1.18 K/uL (0.11-0.59) H 05/09/24 Eosinophils # (Auto) 0.16 K/uL (0.00-0.50) 05/09/24 Basophils # (Auto) 0.04 K/uL (0.00-0.20) 05/09/24 Immature Granulocyte # (Auto) 0.10 K/uL (0.01-0.20) 4 Polychromasia 1+ 04/29/24 Poikilocytosis Present 04/29/24 Echinocytes 1+ 04/28/24 Toxic Granulation 1+ 04/29/24 Toxic Vacuolation 1+ 05/31/24 Dohle Bodies 1+ 04/29/24 PG Care Time/CCT Total # of Minutes Spent Total Time Spent with Patient: Total time spent is greater than 50% in coordination of care (as documented) at patient's floor/unit and/or counseling patient: Coding Level of Care Code 21384 Post Operative Follow-Up Diagnoses Bowel perforation K63.1
--- NOTE | 2024-05-09 08:42 | Infectious Disease Consult ---
Date of Consultation May 09, 2024 Assessment & Plan (1) Bowel perforation: (2) Sepsis: (3) MEGAN (acute kidney injury): Plan 73yo F with h/o breast cancer 20yrs ago s/p lumpectomy and chemo/XRT, COVID infection, HTN, PCN allergy (itching/swelling when young) who presented on 04/28 with abdominal pain and nausea/vomiting x 2 days. She had developed constipation for several days prior followed by flu-like symptoms. She saw her PCP who obtained a CTAP on 04/28 which showed bowel perforation with free peritoneal stool and pneumoperitoneum c/w colonic perf, likely sigmoid, fluid collections partially encapsulated c/w early abscess formation. On admission, she was afebrile. WBC 4.12, Cr 2.61, elevated lactate, LFT wnl. UA neg. S/p OR 04/28 and underwent ex-lap, partial colectomy, omentectomy, appendectomy, and wound vac placement (per op note, noted perforation of distal sigmoid/proximal rectum with feculent peritonitis, inflamed appendiceal tip). She was admitted to ICU on mechanical ventilation. S/p OR 04/29 and underwent re-ex lap, abdominal washout, colostomy creation (per op note, healthy appearing bowel, necrotic right ovary). Extubated 04/30. Noted to have worsening WBC 6/3, CRP 21.22. Repeat CTAP on 05/07 showed small volume of ascites, as well as tiny foci of nonspecific intraperitoneal free air, large multiloculated thick-walled fluid collection in the RUQ below the diaphragm which scallops the underlying liver c/f abscess, additional 3.5 cm developing fluid collection in the right lower quadrant mesentery, small pleural effusions with dependent consolidation. ID consulted 05/09. Patient will need drainage of intraabdominal collections, which should be sent f or cultures. Continue on zosyn. No need for empiric antifungals since this is usually added for upper GI perforation. Cultures also did not mention fungal growth. # Intraabdominal abscesses # Bowel perforation s/p exlap, partial colectomy 04/28, washout and colostomy 04/29 # Sepsis # MEGAN resolved - agree with IR drainage when they are available - please send aerobic and anaerobic cultures from drainage - continue on zosyn ID will continue to follow. If questions or concerns, contact Infectious Disease Call Center . Rosemary Shepherd MD [facility], Division of Infectious Diseases [facility]: [phone] Consultation Information Consultation was provided via telemedicine using two-way real-time interactive telecommunication between the patient and the telemedicine provider. For the duration of the visit, the provider was performing the assessment from a different facility than the patient. This includesuse of bluetooth stethoscope forauscultationperformed by the telepresenter that the telemedicine provider can hear if described in the physical exam. [employer] Worker contact information: Please call [facility] Call Center . (Phone Number For Physician Use Only) After establishing a telemedicine visit, patient was: Patient was verified with two unique identifiers, Patient/authorized rep acknowledged consent and understanding and Gave permission to continue telehealth session Time Spent with Patient: Initial => 75 min History of Present Illness Reason for Consultation: intraabdominal abscess Attending Physician: Omar Leigh DO History of Present Illness 73yo F with h/o breast cancer 20yrs ago s/p lumpectomy and chemo/XRT, COVID infection, HTN, PCN allergy (itching/swelling when young) who presented on 04/28 with abdominal pain and nausea/vomiting x 2 days. She had developed constipation for several days prior followed by flu-like symptoms. She saw her PCP who obtained a CTAP on 04/28 which showed bowel perforation with free peritoneal stool and pneumoperitoneum c/w colonic perf, likely sigmoid, fluid collections partially encapsulated c/w early abscess formation. On admission, she was afebrile. WBC 4.12, Cr 2.61, elevated lactate, LFT wnl. UA neg. S/p OR 04/28 and underwent ex-lap, partial colectomy, omentectomy, appendectomy, and wound vac placement (per op note, noted perforation of distal sigmoid/proximal rectum with feculent peritonitis, inflamed appendiceal tip). She was admitted to ICU on mechanical ventilation. S/p OR 04/29 and underwent re-ex lap, abdominal washout, colostomy creation (per op note, healthy appearing bowel, necrotic right ovary). Extubated 04/30. Noted ot have worsening WBC 6/3, CRP 21.22. Repeat CTAP on 05/07 showed small volume of ascites, as well as tiny foci of nonspecific intraperitoneal free air, large multiloculated thick-walled fluid collection in the RUQ below the diaphragm which scallops the underlying liver c/f abscess, additional 3.5 cm developing fluid collection in the right lower quadrant mesentery, small pleural effusions with dependent consolidation. ID consulted 05/09. On evaluation, patient reports that she has abdominal pain when she moves and is primarily located on her right side, some on the left. No leg swelling that she has noticed. No chest pain. Did feel short of breath at times but presently feels ok. Allergies Allergy/AdvReac Type Severity Reaction Status Date / Time latex Allergy Unknown little red Verified 04/30/24 09:24 itchy bumps Penicillins Allergy Unknown i was Verified 04/30/24 09:24 young, think itchy , swelling ? Home Medications Medication Instructions Recorded Confirmed Type hydrochlorothiazide 12.5 mg capsule 12.5 mg PO QAM 03/26/21 04/30/24 History zolpidem 5 mg tablet 5 mg PO UD PRN Sleep 03/26/21 04/30/24 History apple cider vinegar 300 mg tablet 300 mg PO DAILY 09/24/23 04/30/24 History cholecalciferol (vitamin D3) 25 50 mcg PO DAILY 09/24/23 04/30/24 History mcg (1,000 unit) tablet (Vitamin D3) cinnamon bark 500 mg capsule 500 mg PO DAILY 09/24/23 04/30/24 History (Cinnamon) garlic 400 mg tablet,delayed 400 mg PO DAILY 09/24/23 04/30/24 History release magnesium 1 tab PO DAILY 09/24/23 04/30/24 History resveratrol 50 mg capsule 50 mg PO DAILY 09/24/23 04/30/24 History turmeric 400 mg capsule 400 mg PO DAILY 09/24/23 04/30/24 History vitamin B complex 1 cap PO DAILY 09/24/23 04/30/24 History vitamin E 400 unit tablet 0 mg PO DAILY 09/24/23 04/30/24 History Patient History Medical History (Updated 05/03/24 @ 08:32 by Omar Leigh DO) History of COVID-19 3-4 yr ago. Situational anxiety don't like going to Dr. oliveros. History of breast cancer 20 yr ago/ sx , chemo and radiation Surgical History (Updated 05/03/24 @ 15:09 by Marietta Ghosh RN) H/O exploratory laparotomy (04/28/24) Exploratory Laparotomy, partial colectomy, partial omenectomy, appendectomy, placement of Abthera wound vac (Not Applicable) - Omar Leigh DO Hx of abdominal surgery (04/29/24) Re-exploration Laparotomy, Abdominal Washout, Colostomy Creation(Not Applicable) - Omar Leigh DO Tribune teeth removed History of colonoscopy History of lumpectomy of right breast Social History Smoking Status: Former smoker Tobacco Type: Cigarettes Smoking End Date: 10+ years ago; Hx Alcohol Use: Yes Alcohol type: beer and hard liquor Hx Substance Use: No Preferred Language: Estonian Communication Ability: Impaired Thread Winder Required: No Beliefs That Will Affect Care: None Current Living Situation: Spouse Other Information That Helps Us Care for You: No Feels Safe at Home: Yes Safety Concerns: Feels Safe At This Time Assistive Devices: None Review of System 10-point review of systems reviewed and are negative except for as above. Physical Exam Physical Exam: General: Awake, alert, no acute distress HEENT: NC/AT, EOMI, mmm Neck: supple Lungs: respirations non-labored Heart: nl peripheral perfusion Abdomen: soft, distended, firm, nontender to light palpation, incision site with faisal drain at top, RLQ with MARIIA drain with brown fluid drainage, ostomy site clean Ext: no LE edema Skin: no rash Neuro: moving all extremities Results & Data Vital Signs (Past 12 Hours) Vital Signs Temp Pulse Pulse Resp BP Pulse Ox O2 Del Method 05/09/24 07:57 37.3 C 76 14 142/88 H 94 Room Air 05/08/24 20:55 37.1 C 74 16 166/84 H 95 Room Air Laboratory Results Labs reviewed. Diagnostic Findings Imaging reviewed. (2) Sepsis Severe sepsis acute organ dysfunction type: acute renal failure Severe sepsis shock status: without septic shock
[2024-05-09] MEDS ORDERED: Nursing to Pharmacy Communication SCH (10:45)
--- NOTE | 2024-05-09 11:19 | Hospitalist Progress Note ---
Date of Service May 09, 2024 Assessment & Plan (1) Sepsis: Plan: Sepsis secondary to bowel perforation/ fecal peritonitis. clinically patient appears to be doing better, on Zosyn. Imaging of abdomen due to pain shows some diaphragmatic suprahepatic abscess and also abscess in the right lower quadrant. Will reinstitute caspofungin, Infectious disease consultation placed for 05/09 Coordination with interventional radiology to consider drainage and drain placement force subdiaphragmatic abscess this will be completed on 05/10 Will try on 05/10 as IR is not in house on 05/09 anemia likely post op from blood loss iron studies check shows low iron but low binding capacity suggestive this may be inflammatory anemia Patient's white count is in the teens. However platelets and CRP is rising. Any repeat laboratories on 05/09 Discussed situational depression for this patient she is a homeopathic person and likes to take natural substances replete electrolytes , troubled by high ostomy output, replete potassium and magnesium Added boost supplementation for nutrition Patient may eventually benefit from rehab placement Admission and Anticipated Discharge Date Admission Date: April 28, 2024 Subjective Patient is sitting in bed having a [employer] burger. She states she has moderateto sever epain when she moves, but the tylenol is helping manage the pain. Review of Systems Review of Systems: All systems reviewed & are unremarkable except as noted in HPI & below Physical Exam Constitutional: average body habitus; no acute distress Eyes: PERRL, conjunctivae normal, anicteric sclerae ENMT: external ear and nose normal, oropharynx normal Neck: trachea midline, no thyromegaly Respiratory: normal respiratory effort Cardiovascular: Extremities: no edema Gastrointestinal (Abdomen): distended, TTP Musculoskeletal: no cyanosis, or clubbing Skin: no rashes, warm and dry Results & Data Results & Data Vital Signs (Past 12 Hours) Vital Signs Temp Pulse Resp BP Pulse Ox O2 Del Method 05/09/24 07:57 37.3 C 76 14 142/88 H 94 Room Air PG Care Time/CCT Total # of Minutes Spent Total Time Spent with Patient: Total time spent is greater than 50% in coordination of care (as documented) at patient's floor/unit and/or counseling patient: Coding Level of Care Code 58463 SUB INP/OBS CARE 2/35MIN Diagnoses Sepsis A41.9 Severe sepsis acute organ dysfunction type: acute renal failure Severe sepsis shock status: without septic shock (1) Sepsis Severe sepsis acute organ dysfunction type: acute renal failure Severe sepsis shock status: without septic shock
[2024-05-09] MEDS: DICLOFENAC SOD 1% GEL 100 GM TUBE EXT SCH (11:31)
[2024-05-10 08:08] LABS: Basophils # (auto) 0.03 K/uL (0.00-0.20); Basophils % (auto) 0.3 %; Eosinophils # (auto) 0.24 K/uL (0.00-0.50); Eosinophils % (auto) 2.1 %; Hematocrit (blood only) 29.6 % (37.0-47.0); Hemoglobin 9.9 g/dl (12.0-16.0); Immature Granulocytes # (auto) 0.06 K/uL (0.01-0.20); Immature Granulocytes % (auto) 0.5 %; Lymphocytes # (auto) 0.99 K/uL (1.20-3.40); Lymphocytes % (auto) 8.6 %; Mean Corpuscular Hemoglobin 29.6 pg (25.0-34.0); Mean Corpuscular Hgb Conc 33.4 g/dL (32.0-36.0); Mean Corpuscular Volume 88.6 fL (80.0-100.0); Monocytes # (auto) 1.06 K/uL (0.11-0.59); Monocytes % (auto) 9.2 %; Neutrophils # (auto) 9.16 K/uL (1.40-6.50); Neutrophils % (auto) 79.3 %; Platelet Count 942 K/uL (130-400); RDW Coefficient of Variation 14.6 % (11.5-14.5); RDW Standard Deviation 47.3 fL (36.4-46.3); Red Blood Count 3.34 M/uL (4.20-5.40); White Blood Count 11.54 K/ul (4.8-10.8)
[2024-05-10 08:23] LABS: C Reactive Protein 23.46 mg/dl (0-0.5); Calcium 8.3 mg/dl (8.6-10.3); Creatinine Clr Calc Pharmacy 86.3 ml/min; Est GFR (African American) 109.2 ml/min; Est GFR (Non-African American) 94.2 ml/min; Potassium 4.9 mmol/L (3.5-5.1)
--- NOTE | 2024-05-10 10:11 | Surgery Progress Note ---
Date of Service May 10, 2024 Assessment & Plan (1) Bowel perforation: Plan: IR to attempt drainage of RUQ fluid collection today Her WBC is lowest its been at 11.5 today Continue IV ABX Midline wound needs BID dressings changes due to purulence She will hopefully be stable for d/c to rehab in the next 48-72 hours (2) Hyponatremia: (3) Sepsis: Admission and Anticipated Discharge Date Admission Date: April 28, 2024 Subjective Pt seen and examined. Pain controlled. Afebrile. Continues to have ostomy output. Physical Exam Constitutional: WD/WN, vitals as above Gastrointestinal (Abdomen): Soft, appropriately TTP, ostomy pink with output Midline wound with Phoebe in place, purulent fluid in bottom of incision, fascia probed and intact Omar drain in RLQ draining purulent fluid Results & Data Vital Signs (Past 12 Hours) Vital Signs Temp Pulse Resp BP Pulse Ox O2 Del Method 05/10/24 07:28 37.3 C 69 14 164/85 H 94 Room Air PG Care Time/CCT Total # of Minutes Spent Total Time Spent with Patient: Total time spent is greater than 50% in coordination of care (as documented) at patient's floor/unit and/or counseling patient: Coding Level of Care Code 49086 Post Operative Follow-Up Diagnoses Bowel perforation K63.1 Hyponatremia E87.1 Sepsis A41.9 Severe sepsis acute organ dysfunction type: acute renal failure Severe sepsis shock status: without septic shock (3) Sepsis Severe sepsis acute organ dysfunction type: acute renal failure Severe sepsis shock status: without septic shock
--- NOTE | 2024-05-10 14:37 | CT Scan Report ---
CT-guided right upper quadrant abscess drain placement INDICATION: Right upper quadrant fluid collection PROCEDURE: Procedure and risks were explained. Informed consent was obtained. A final timeout was com pleted. The patient was placed supine on the CT exam table. The abdomen was prepped and draped in jovany rile fashion. 1% lidocaine was utilized for skin anesthesia. Utilizing CT guidance, an 18-gauge Chiba needle was advanced into the inferior portion of the right u pper quadrant fluid collection. A 0.035 Amplatz wire was introduced through the entry needle and angl ed towards the head into the larger superior collection. An 8 Wolof locking pigtail catheter was the n advanced over the guidewire and secured to the skin with 3-0 nylon and placed to suction bag draina ge. Approximately 20 mL of purulent fluid was sent to the lab for analysis and an additional 100 mL w as drained at the time of the procedure. Post CT imaging demonstrated adequate catheter position with reduction of the right upper quadrant fluid collection. The patient tolerated the procedure well. Vi keysha signs will be monitored postprocedure. IMPRESSION: CT-guided right upper quadrant abscess drain placement as above. Performed, dictated, and signed by Luis Salinas PA-C; to be co-signed by Dr. Ruperto Uriarte. Electronically signed by: Ruperto Uriarte M.D. 05/10/2024 3:01 PM
[2024-05-10] MEDS: oxyCODONE HCL IR 5 MG TAB (IMMEDIATE RELEASE) PO PRN (14:46)
[2024-05-10] MEDS: hydroCHLOROthiazide 25 MG TAB PO STA (15:10)
[2024-05-10] MEDS: IBUPROFEN 600 MG TAB PO SCH (15:48)
--- NOTE | 2024-05-10 18:00 | Hospitalist Progress Note ---
Date of Service May 10, 2024 Assessment & Plan (1) Sepsis: Plan: Sepsis secondary to bowel perforation/ fecal peritonitis. clinically patient appears to be doing better, on Zosyn. Imaging of abdomen due to pain shows some diaphragmatic suprahepatic abscess and also abscess in the right lower quadrant. Will reinstitute caspofungin, Infectious disease consultation placed for 05/09 Coordination with interventional radiology to consider drainage and drain placement force subdiaphragmatic abscess this will be completed on 05/10 S/P IR on 05/10,Patient significantly improved. anemia likely post op from blood loss iron studies check shows low iron but low binding capacity suggestive this may be inflammatory anemia Patient's white count is in the teens. However platelets and CRP is rising. Any repeat laboratories on 05/09 Discussed situational depression for this patient she is a homeopathic person and likes to take natural substances replete electrolytes , troubled by high ostomy output, replete potassium and magnesium Added boost supplementation for nutrition Patient may eventually benefit from rehab placement Admission and Anticipated Discharge Date Admission Date: April 28, 2024 Subjective 73 yo female reports no new symptoms. She states her pain has improved after removing fluid from her abdomen. Review of Systems Review of Systems: All systems reviewed & are unremarkable except as noted in HPI & below Physical Exam Constitutional: average body habitus; no acute distress Eyes: PERRL, conjunctivae normal, anicteric sclerae ENMT: external ear and nose normal, oropharynx normal Neck: trachea midline, no thyromegaly Respiratory: normal respiratory effort, lungs clear to auscultation Cardiovascular: RRR, no murmur, no edema Heart Sounds: normal S1 and normal S2; no murmur Extremities: no edema Gastrointestinal (Abdomen): normal bowel sounds, soft, nontender, no hepatosplenomegaly Musculoskeletal: no cyanosis or clubbing, extremities motor strength 5/5 Skin: no rashes, warm and dry Results & Data Results & Data Vital Signs (Past 12 Hours) Vital Signs Temp Pulse Resp BP Pulse Ox O2 Del Method 05/10/24 14:50 144/77 H 05/10/24 14:04 36.8 C 80 18 177/75 H 94 Room Air 05/10/24 13:45 37.1 C 84 18 176/83 H 93 Room Air 05/10/24 13:35 37.5 C 81 18 175/92 H 94 Room Air 05/10/24 07:28 37.3 C 69 14 164/85 H 94 Room Air PG Care Time/CCT Total # of Minutes Spent Total Time Spent with Patient: Total time spent is greater than 50% in coordination of care (as documented) at patient's floor/unit and/or counseling patient: Coding Level of Care Code 13354 SUB INP/OBS CARE 2/35MIN Diagnoses Sepsis A41.9 Severe sepsis acute organ dysfunction type: acute renal failure Severe sepsis shock status: without septic shock (1) Sepsis Severe sepsis acute organ dysfunction type: acute renal failure Severe sepsis shock status: without septic shock
[2024-05-11 07:28] LABS: Basophils # (auto) 0.03 K/uL (0.00-0.20); Basophils % (auto) 0.3 %; Hematocrit (blood only) 30.8 % (37.0-47.0); Hemoglobin 10.4 g/dl (12.0-16.0); Immature Granulocytes # (auto) 0.06 K/uL (0.01-0.20); Immature Granulocytes % (auto) 0.6 %; Lymphocytes # (auto) 0.73 K/uL (1.20-3.40); Lymphocytes % (auto) 7.4 %; Mean Corpuscular Hgb Conc 33.8 g/dL (32.0-36.0); Mean Corpuscular Volume 88.8 fL (80.0-100.0); Mean Platelet Volume 9.7 fL (9.4-12.4); Monocytes # (auto) 0.87 K/uL (0.11-0.59); Monocytes % (auto) 8.8 %; Neutrophils # (auto) 7.96 K/uL (1.40-6.50); Neutrophils % (auto) 80.9 %; Platelet Count 955 K/uL (130-400); RDW Coefficient of Variation 14.6 % (11.5-14.5); RDW Standard Deviation 46.5 fL (36.4-46.3); Red Blood Count 3.47 M/uL (4.20-5.40); White Blood Count 9.85 K/ul (4.8-10.8)
[2024-05-11 07:40] LABS: BUN Creatinine Ratio 20.4 (10-20); C Reactive Protein 24.42 mg/dl (0-0.5); Calcium 8.4 mg/dl (8.6-10.3); Creatinine Clr Calc Pharmacy 93.3 ml/min; Est GFR (Non-African American) 96.7 ml/min; Potassium 4.4 mmol/L (3.5-5.1)
--- NOTE | 2024-05-11 07:47 | Hospitalist Progress Note ---
Date of Service May 11, 2024 Assessment & Plan (1) Sepsis: Plan: Sepsis secondary to bowel perforation/ fecal peritonitis. clinically patient appears to be doing better, on Zosyn. Imaging of abdomen due to pain shows some diaphragmatic suprahepatic abscess and also abscess in the right lower quadrant. Will reinstitute caspofungin, Infectious disease consultation placed for 05/09 Coordination with interventional radiology to consider drainage and drain placement force subdiaphragmatic abscess this will be completed on 05/10 S/P IR on 05/10, 120 mL was drained at the time of the procedure Patient significantly improved. anemia likely post op from blood loss iron studies check shows low iron but low binding capacity suggestive this may be inflammatory anemia Patient's white count is in the teens. However platelets and CRP is rising. Any repeat laboratories on 05/09 Discussed situational depression for this patient she is a homeopathic person and likes to take natural substances replete electrolytes , troubled by high ostomy output, replete potassium and magnesium Added boost supplementation for nutrition Patient may eventually benefit from rehab placement Patient is moving better on 05/11 Pain and blood work appears to be improved as well. Will continue to monitor patient. Admission and Anticipated Discharge Date Admission Date: April 28, 2024 Subjective Patient reports her pain has signifcantly improved. Review of Systems Review of Systems: All systems reviewed & are unremarkable except as noted in HPI & below Physical Exam Constitutional: average body habitus; no acute distress Eyes: PERRL, conjunctivae normal, anicteric sclerae ENMT: external ear and nose normal, oropharynx normal Neck: trachea midline, no thyromegaly Respiratory: normal respiratory effort, lungs clear to auscultation Cardiovascular: RRR, no murmur, no edema Heart Sounds: normal S1 and normal S2; no murmur Extremities: no edema Gastrointestinal (Abdomen): normal bowel sounds, soft, nontender, no hepatosplenomegaly Musculoskeletal: no cyanosis or clubbing, extremities motor strength 5/5 Skin: no rashes, warm and dry Results & Data Results & Data Vital Signs (Past 12 Hours) Vital Signs Temp Pulse Resp BP Pulse Ox O2 Del Method 05/11/24 07:20 36.7 C 74 16 138/80 94 Room Air 05/10/24 20:43 36.7 C 71 16 161/82 H 95 Room Air PG Care Time/CCT Total # of Minutes Spent Total Time Spent with Patient: Total time spent is greater than 50% in coordination of care (as documented) at patient's floor/unit and/or counseling patient: Coding Level of Care Code 44072 SUB INP/OBS CARE 2/35MIN Diagnoses Sepsis A41.9 Severe sepsis acute organ dysfunction type: acute renal failure Severe sepsis shock status: without septic shock (1) Sepsis Severe sepsis acute organ dysfunction type: acute renal failure Severe sepsis shock status: without septic shock
--- NOTE | 2024-05-11 08:13 | Surgery Progress Note ---
Date of Service May 11, 2024 Assessment & Plan (1) Bowel perforation: Plan: post operative ostomy creation + output IR drain placed yesterday draining purulent fluids +Elizabeth drain Cultures sent, pending [place] removed this AM, nursing to continue packing moistened gauze to superior and inferior aspects of midline abdominal incision, dry gauze, abd, medipore tape BID. Continue low fiber diet VSS WBC downtrending Anticipate rehab tomorrow if able to be set up Pt seen and examined with Dr. Leigh Admission and Anticipated Discharge Date Admission Date: April 28, 2024 Supervising Physician Co-Signing Physician Notes I personally saw and evaluated the patient with Mallory BENTLEY and agree with the assessment and plan. 73 yo female s/p exploratory laparotomy sigmoid resection for perforated diverticulitis/abdominal washout, abdominal wall closure and colostomy creation, s/p IR drain Right blood cell count is normal and she is without fevers Her ostomy is working and she is tolerating a low fiber diet He did open the inferior portion of her incision a little bit more and removed her [place] drain She will require twice daily wet-to-dry saline dressings to the midline incision in order to promote granulation and healing of the incision Will keep both drains in place upon discharge Will tentatively plan for discharge to rehab tomorrow versus Thursday pending her clinical course Subjective tolerating low fiber diet Review of Systems Constitutional: no fever and no chills Respiratory: no dyspnea Gastrointestinal: no nausea and no vomiting Physical Exam Physical Exam: alert oriented Constitutional: cooperative and comfortable; no acute distress Respiratory: normal respiratory effort and able to speak in complete sentences; no respiratory distress Cardiovascular: Rate/Rhythm: regular rate Gastrointestinal (Abdomen): Inspection/Auscultation: + abdominal surgical incision and + abdominal surgical drain present (ELIZABETH , IR ) Percussion/Palpation: abdomen soft Results & Data Vital Signs (Past 12 Hours) Vital Signs Temp Pulse Resp BP Pulse Ox O2 Del Method 05/11/24 07:20 98.1 F 74 16 138/80 94 Room Air 05/10/24 20:43 98.1 F 71 16 161/82 H 95 Room Air Results CBC w Diff Results: RBC 3.47 M/uL (4.20-5.40) L 05/11/24 WBC 9.85 K/ul (4.8-10.8) 05/11/24 Hgb 10.4 g/dl (12.0-16.0) L 05/11/24 Hct 30.8 % (37.0-47.0) L 05/11/24 MCV 88.8 fL (80.0-100.0) 05/11/24 MCH 30.0 pg (25.0-34.0) 05/11/24 MCHC 33.8 g/dL (32.0-36.0) 05/11/24 RDW Standard Deviation 46.5 fL (36.4-46.3) H 05/11/24 RDW Coefficient of Variation 14.6 % (11.5-14.5) H 05/11/24 Plt Count 955 K/uL (130-400) H 05/11/24 MPV 9.7 fL (9.4-12.4) 05/11/24 Neutrophils (%) (Auto) 80.9 % 05/11/24 Lymphocytes (%) (Auto) 7.4 % 05/11/24 Monocytes # (Auto) 0.87 K/uL (0.11-0.59) H 05/11/24 Eosinophils # (Auto) 0.20 K/uL (0.00-0.50) 05/11/24 Immature Granulocyte % (Auto) 0.6 % 05/11/24 Neutrophils # (Auto) 7.96 K/uL (1.40-6.50) H 05/11/24 Lymphocytes # (Auto) 0.73 K/uL (1.20-3.40) L 05/11/24 Monocytes # (Auto) 0.87 K/uL (0.11-0.59) H 05/11/24 Eosinophils # (Auto) 0.20 K/uL (0.00-0.50) 05/11/24 Basophils # (Auto) 0.03 K/uL (0.00-0.20) 05/11/24 Immature Granulocyte # (Auto) 0.06 K/uL (0.01-0.20) 4 Polychromasia 1+ 04/29/24 Poikilocytosis Present 04/29/24 Echinocytes 1+ 04/28/24 Toxic Granulation 1+ 04/29/24 Toxic Vacuolation 1+ 05/31/24 Dohle Bodies 1+ 04/29/24 PG Care Time/CCT Total # of Minutes Spent Total Time Spent with Patient: Total time spent is greater than 50% in coordination of care (as documented) at patient's floor/unit and/or counseling patient: Coding Level of Care Code 45088 Post Operative Follow-Up Diagnoses Bowel perforation K63.1
[2024-05-11] MEDS: PIPERACILLIN/TAZOBACTAM 4.5 GM in DEXTROSE 5% MINI-B 100 ML IV STA (09:23)
--- NOTE | 2024-05-11 09:44 | Infectious Disease Progress Nt ---
Date of Service May 11, 2024 Assessment & Plan (1) Intra-abdominal abscess: (2) Bowel perforation: (3) Sepsis: (4) MEGAN (acute kidney injury): Plan 73yo F with h/o breast cancer 20yrs ago s/p lumpectomy and chemo/XRT, COVID infection, HTN, PCN allergy (itching/swelling when young) who presented on 04/28 with abdominal pain and nausea/vomiting x 2 days. She had developed constipation for several days prior followed by flu-like symptoms. She saw her PCP who obtained a CTAP on 04/28 which showed bowel perforation with free peritoneal stool and pneumoperitoneum c/w colonic perf, likely sigmoid, fluid collections partially encapsulated c/w early abscess formation. On admission, she was afebrile. WBC 4.12, Cr 2.61, elevated lactate, LFT wnl. UA neg. S/p OR 04/28 and underwent ex-lap, partial colectomy, omentectomy, appendectomy, and wound vac placement (per op note, noted perforation of distal sigmoid/proximal rectum with feculent peritonitis, inflamed appendiceal tip). She was admitted to ICU on mechanical ventilation. S/p OR 04/29 and underwent re-ex lap, abdominal washout, colostomy creation (per op note, healthy appearing bowel, necrotic right ovary). Extubated 04/30. Noted to have worsening WBC 6/3, CRP 21.22. Repeat CTAP on 05/07 showed small volume of ascites, as well as tiny foci of nonspecific intraperitoneal free air, large multiloculated thick-walled fluid collection in the RUQ below the diaphragm which scallops the underlying liver c/f abscess, additional 3.5 cm developing fluid collection in the right lower quadrant mesentery, small pleural effusions with dependent consolidation. ID consulted 05/09. S/p IR drainage on 05/10. [place] removed 05/11. Awaiting IR cultures, continue on zosyn. # Intraabdominal abscesses s/p drain 05/10 # Bowel perforation s/p exlap, partial colectomy 04/28, washout and colostomy 04/29 # Sepsis # MEGAN resolved - awaiting cultures from drainage - continue on zosyn 4.5g IV q8h - plan will be for at least 3-4 weeks of antibiotics starting from 05/10 with repeat CTAP, final duration pending resolution of abscess - final regimen pending culture results ID will continue to follow. If questions or concerns, contact Infectious Disease Call Center . Rosemary Shepherd MD [facility], Division of Infectious Diseases IDConnect: [phone] Admission and Anticipated Discharge Date Admission Date: April 28, 2024 Subjective This patient recommendation is based on a telemedicine consult request which was completed asynchronously through chart review and information provided by the primary physician. The patient was not seen or examined today. The evaluation is consultative in nature and all patient care and treatment decisions can either be accepted or rejected by the patient's primary hospital-based treating physician using their own independent medical judgment for their patient. Time Spent Reviewing Chart: 31+ minutes Results & Data Vital Signs (Past 12 Hours) Vital Signs Temp Pulse Resp BP Pulse Ox O2 Del Method 05/11/24 07:20 36.7 C 74 16 138/80 94 Room Air (3) Sepsis Severe sepsis acute organ dysfunction type: acute renal failure Severe sepsis shock status: without septic shock
[2024-05-11] MEDS: PIPERACILLIN/TAZOBACTAM 4.5 GM in DEXTROSE 5% MINI-B 100 ML IV SCH (14:06)
[2024-05-11] MEDS: oxyCODONE HCL IR 5 MG TAB (IMMEDIATE RELEASE) PO PRN (21:28)
[2024-05-12 07:14] LABS: Basophils # (auto) 0.03 K/uL (0.00-0.20); Basophils % (auto) 0.3 %; Eosinophils # (auto) 0.23 K/uL (0.00-0.50); Eosinophils % (auto) 2.7 %; Hematocrit (blood only) 29.1 % (37.0-47.0); Hemoglobin 9.7 g/dl (12.0-16.0); Immature Granulocytes # (auto) 0.05 K/uL (0.01-0.20); Immature Granulocytes % (auto) 0.6 %; Lymphocytes % (auto) 9.3 %; Mean Corpuscular Hemoglobin 29.4 pg (25.0-34.0); Mean Corpuscular Hgb Conc 33.3 g/dL (32.0-36.0); Mean Corpuscular Volume 88.2 fL (80.0-100.0); Mean Platelet Volume 9.7 fL (9.4-12.4); Monocytes # (auto) 0.73 K/uL (0.11-0.59); Monocytes % (auto) 8.4 %; Neutrophils % (auto) 78.7 %; Platelet Count 935 K/uL (130-400); RDW Coefficient of Variation 14.3 % (11.5-14.5); RDW Standard Deviation 45.7 fL (36.4-46.3); White Blood Count 8.64 K/ul (4.8-10.8)
[2024-05-12 07:32] LABS: BUN Creatinine Ratio 21.6 (10-20); Creatinine Clr Calc Pharmacy 89.6 ml/min; Est GFR (African American) 110.6 ml/min; Est GFR (Non-African American) 95.4 ml/min; Potassium 3.5 mmol/L (3.5-5.1)
--- NOTE | 2024-05-12 09:16 | Infectious Disease Progress Nt ---
Date of Service May 12, 2024 Assessment & Plan (1) Intra-abdominal abscess: (2) Bowel perforation: (3) Sepsis: (4) MEGAN (acute kidney injury): Plan 73yo F with h/o breast cancer 20yrs ago s/p lumpectomy and chemo/XRT, COVID infection, HTN, PCN allergy (itching/swelling when young) who presented on 04/28 with abdominal pain and nausea/vomiting x 2 days. She had developed constipation for several days prior followed by flu-like symptoms. She saw her PCP who obtained a CTAP on 04/28 which showed bowel perforation with free peritoneal stool and pneumoperitoneum c/w colonic perf, likely sigmoid, fluid collections partially encapsulated c/w early abscess formation. On admission, she was afebrile. WBC 4.12, Cr 2.61, elevated lactate, LFT wnl. UA neg. S/p OR 04/28 and underwent ex-lap, partial colectomy, omentectomy, appendectomy, and wound vac placement (per op note, noted perforation of distal sigmoid/proximal rectum with feculent peritonitis, inflamed appendiceal tip). She was admitted to ICU on mechanical ventilation. S/p OR 04/29 and underwent re-ex lap, abdominal washout, colostomy creation (per op note, healthy appearing bowel, necrotic right ovary). Extubated 04/30. Noted to have worsening WBC 6/3, CRP 21.22. Repeat CTAP on 05/07 showed small volume of ascites, as well as tiny foci of nonspecific intraperitoneal free air, large multiloculated thick-walled fluid collection in the RUQ below the diaphragm which scallops the underlying liver c/f abscess, additional 3.5 cm developing fluid collection in the right lower quadrant mesentery, small pleural effusions with dependent consolidation. ID consulted 05/09. S/p IR drainage on 05/10, cx with E coli (I-unasyn). Phoe[place] removed 05/11. Patient is tolerating PO diet, does not seem there are concerns for issues of GI absorption. In this case, we can complete therapy with PO regimen. Options include high dose augmentin (preferred), or 3rd gen cephalosporin (ie cefpodoxime or cefdinir) + flagyl (included in intraabdominal infections for anaerobic coverage). Long durations of flagyl have significant adverse effects which Id like to avoid in the even that she needs a longer course of abx after 3-4wks. Abx: Zosyn 04/28-present Caspofungin 04/29-05/04 Micro: 04/28 MRSA screen: neg 04/28 OR cx (peritoneal fluid): high counts of mixed probable GI microbiota 04/28 Path: acute serositis 05/10 IR drainage cx: E coli (I-unasyn, S-amox/clav, R-cipro) # Intraabdominal abscesses s/p drain 05/10 cx with E coli # Bowel perforation s/p exlap, partial colectomy 04/28, washout and colostomy 04/29 # Sepsis # MEGAN resolved - can keep on zosyn 4.5g IV q8h while inpatient - on discharge, would change abx to augmentin 875mg PO three times daily (other option includes cefpodoxime 400mg PO twice daily with flagyl 500mg PO q8h) - she will need at least 3-4 weeks of antibiotics starting from 05/10 (4wks on 06/07) final duration depending on resolution of abscess on repeat imaging - repeat CTAP with IV contrast in 3-4 weeks - f/u with local ID provider ID will discontinue active follow up at this time. Please do not hesitate to reconsult the Infectious Diseases service as needed. Rosemary Shepherd MD [facility], Division of Infectious Diseases [employer]Connect: [phone] Admission and Anticipated Discharge Date Admission Date: April 28, 2024 Subjective Subsequent visit was provided via telemedicine using two-way real-time interactive telecommunication between the patient and the telemedicine provider. For the duration of the visit, the provider was performing the assessment from a different facility than the patient. This includesuse of bluetooth stethoscope forauscultationperformed by the telepresenter that the telemedicine provider can hear if described in the physical exam. Database Administration Associate contact information: Please call ID Connect Call Center . (Phone Number For Physician Use Only) After establishing a telemedicine visit, patient was: Patient was verified with two unique identifiers, Patient/authorized rep acknowledged consent and understanding and Gave permission to continue telehealth session Time Spent with Patient: Subsequent => 55 min Patient feeling well. Abdomen feels better, pain still there but improving. No vomiting, nausea, sob. Physical Exam Physical Exam: General: Awake, alert, no acute distress HEENT: NC/AT, EOMI, mmm Neck: supple Lungs: respirations non-labored Heart: nl peripheral perfusion Abdomen: soft, nontender to palpation, RLQ with MARIIA drain with brown fluid drainage, ostomy site clean, abscess drain with yellow fluid Results & Data Vital Signs (Past 12 Hours) Vital Signs Temp Pulse Resp BP Pulse Ox O2 Del Method 05/11/24 22:05 36.5 C 79 16 149/87 H 97 Room Air Laboratory Results Labs reviewed. Gram Stain Final 05/10/24-2148 Gram Stain Result Few WBCs Seen Many Gram Negative Bacilli Aero/Minnie Cult Preliminary 05/12/24-719 Organism 1 Escherichia coli Quantity Moderate Sens Sensitivities to Follow E coli RX M.I.C. --- --------- Amox/Clav S <=8/4 Ampicillin R >16 Amp/Sul I 16/8 Cefazolin I 4 Cefepime S <=2 Ceftriaxone S <=1 Ciprofloxacin I 0.5 Ertapenem S <=0.5 Gentamicin S <=4 Levofloxacin S <=0.5 Meropenem S <=1 Tobramycin S <=4 Trimeth/Sulfa S <=2/38 Pip/Tazo S <=16 S = SENSITIVE I = INTERMEDIATE R = RESISTANT (3) Sepsis Severe sepsis acute organ dysfunction type: acute renal failure Severe sepsis shock status: without septic shock
--- NOTE | 2024-05-12 09:51 | Surgery Progress Note ---
Date of Service May 12, 2024 Assessment & Plan (1) Bowel perforation: Plan: s/p bowel perforation, ostomy creation , IR drain + ostomy function tolerating reg diet purulent drainage in IR and MARIIA VSS WBC wnl, continue IV antibiotics until discharge changed abd dressing this AM , nursing to continue BID dressing changes ID to give recs for oral antibiotics for d/c anticipate pt to go to rehab tomorrow Admission and Anticipated Discharge Date Admission Date: April 28, 2024 Supervising Physician Co-Signing Physician Notes I personally saw and evaluated the patient with Mallory BENTLEY and agree with the assessment and plan. 73 yo female s/p exploratory laparotomy sigmoid resection for perforated diverticulitis/abdominal washout, abdominal wall closure and colostomy creation, s/p IR drain She is stable for discharge from a surgical standpoint, will plan on tomorrow to rehab BID wet to dry dressing changes to incision Low fiber diet Continue both drains, she will be discharged with these Await ID recommendations, but she can likely take Augmentin Subjective Patient resting in bed tolerating diet complaints of some back pain, thinks it may be from IR drain Review of Systems 2 Constitutional: no fever and no chills Respiratory: no dyspnea Cardiovascular: no chest pain Gastrointestinal: no nausea and no vomiting Physical Exam Physical Exam: alert oriented pleasant Constitutional: well developed, cooperative and comfortable; no acute distress Respiratory: normal respiratory effort and able to speak in complete sentences; no respiratory distress Cardiovascular: Rate/Rhythm: regular rate Gastrointestinal (Abdomen): Inspection/Auscultation: + abdominal surgical incision and + abdominal surgical drain present (MARIIA + IR ); abdomen not distended Percussion/Palpation: abdomen soft Results & Data Vital Signs (Past 12 Hours) Vital Signs Temp Pulse Pulse Resp BP Pulse Ox O2 Del Method 05/12/24 08:00 98.6 F 74 18 143/81 H 97 Room Air 05/11/24 22:05 97.7 F 79 16 149/87 H 97 Room Air Results CBC w Diff Results: RBC 3.30 M/uL (4.20-5.40) L 05/12/24 WBC 8.64 K/ul (4.8-10.8) 05/12/24 Hgb 9.7 g/dl (12.0-16.0) L 05/12/24 Hct 29.1 % (37.0-47.0) L 05/12/24 MCV 88.2 fL (80.0-100.0) 05/12/24 MCH 29.4 pg (25.0-34.0) 05/12/24 MCHC 33.3 g/dL (32.0-36.0) 05/12/24 RDW Standard Deviation 45.7 fL (36.4-46.3) 05/12/24 RDW Coefficient of Variation 14.3 % (11.5-14.5) 05/12/24 Plt Count 935 K/uL (130-400) H 05/12/24 MPV 9.7 fL (9.4-12.4) 05/12/24 Neutrophils (%) (Auto) 78.7 % 05/12/24 Lymphocytes (%) (Auto) 9.3 % 05/12/24 Monocytes # (Auto) 0.73 K/uL (0.11-0.59) H 05/12/24 Eosinophils # (Auto) 0.23 K/uL (0.00-0.50) 05/12/24 Immature Granulocyte % (Auto) 0.6 % 05/12/24 Neutrophils # (Auto) 6.80 K/uL (1.40-6.50) H 05/12/24 Lymphocytes # (Auto) 0.80 K/uL (1.20-3.40) L 05/12/24 Monocytes # (Auto) 0.73 K/uL (0.11-0.59) H 05/12/24 Eosinophils # (Auto) 0.23 K/uL (0.00-0.50) 05/12/24 Basophils # (Auto) 0.03 K/uL (0.00-0.20) 05/12/24 Immature Granulocyte # (Auto) 0.05 K/uL (0.01-0.20) 4 Polychromasia 1+ 04/29/24 Poikilocytosis Present 04/29/24 Echinocytes 1+ 04/28/24 Toxic Granulation 1+ 04/29/24 Toxic Vacuolation 1+ 04/29/24 Dohle Bodies 1+ 04/29/24 PG Care Time/CCT Total # of Minutes Spent Total Time Spent with Patient: Total time spent is greater than 50% in coordination of care (as documented) at patient's floor/unit and/or counseling patient: Coding Level of Care Code 59176 Post Operative Follow-Up Diagnoses Bowel perforation K63.1
--- NOTE | 2024-05-12 16:46 | Hospitalist Progress Note ---
Date of Service May 12, 2024 Assessment & Plan (1) Sepsis: Plan: Sepsis secondary to bowel perforation/ fecal peritonitis. clinically patient appears to be doing better, on Zosyn. Imaging of abdomen due to pain shows some diaphragmatic suprahepatic abscess and also abscess in the right lower quadrant. Will reinstitute caspofungin, Infectious disease consultation placed for 05/09 Coordination with interventional radiology to consider drainage and drain placement force subdiaphragmatic abscess this will be completed on 05/10 S/P IR on 05/10, 120 mL was drained at the time of the procedure Patient significantly improved. anemia likely post op from blood loss iron studies check shows low iron but low binding capacity suggestive this may be inflammatory anemia Patient's white count is in the teens. However platelets and CRP is rising. Any repeat laboratories on 05/09 Discussed situational depression for this patient she is a homeopathic person and likes to take natural substances replete electrolytes , troubled by high ostomy output, replete potassium and magnesium Added boost supplementation for nutrition Patient may eventually benefit from rehab placement Patient is moving better on 05/12 Pain and blood work appears to be improved as well. Anticipate discharge on 05/13 appreciate input from ID can keep on zosyn 4.5g IV q8h while inpatient - on discharge, would change abx to augmentin 875mg PO three times daily (other option includes cefpodoxime 400mg PO twice daily with flagyl 500mg PO q8h) - she will need at least 3-4 weeks of antibiotics starting from 05/10 (4wks on 06/07) final duration depending on resolution of abscess on repeat imaging - repeat CTAP with IV contrast in 3-4 weeks - f/u with local ID provider Admission and Anticipated Discharge Date Admission Date: April 28, 2024 Subjective Patient reports feeling well. She has no new complaints. Review of Systems Review of Systems: All systems reviewed & are unremarkable except as noted in HPI & below Physical Exam Constitutional: average body habitus; no acute distress Eyes: PERRL, conjunctivae normal, anicteric sclerae ENMT: external ear and nose normal, oropharynx normal Neck: trachea midline, no thyromegaly Cardiovascular: Extremities: no edema Gastrointestinal (Abdomen): normal bowel sounds, soft, nontender, no hepatosplenomegaly colostomy bag is draining. Musculoskeletal: no cyanosis or clubbing, extremities motor strength 5/5 Skin: no rashes, warm and dry Results & Data Results & Data Vital Signs (Past 12 Hours) Vital Signs Temp Pulse Resp BP Pulse Ox O2 Del Method 05/12/24 08:00 37 C 74 18 143/81 H 97 Room Air PG Care Time/CCT Total # of Minutes Spent Total Time Spent with Patient: Total time spent is greater than 50% in coordination of care (as documented) at patient's floor/unit and/or counseling patient: Coding Level of Care Code 11327 SUB INP/OBS CARE 2/35MIN Diagnoses Sepsis A41.9 Severe sepsis acute organ dysfunction type: acute renal failure Severe sepsis shock status: without septic shock (1) Sepsis Severe sepsis acute organ dysfunction type: acute renal failure Severe sepsis shock status: without septic shock
--- NOTE | 2024-05-13 08:08 | Surgery Progress Note ---
Date of Service May 13, 2024 Assessment & Plan (1) Bowel perforation: Plan: s/p bowel perforation, ostomy creation, abdominal washout x2, now IR s/p drainage for abscess on 05/10 VSS, WBC has been normal last 2 days + ostomy function tolerating reg diet purulent drainage in IR and MARIIA. will continue both of these drains Abdominal dressing changed this AM by surgical team, will need to continue BID dressing changes at rehab with wet-dry 4x4 gauze packing ID rec okay for PO augmentin TID for 3-[address] scan in few wks to evaluate resolution of collections Pt stable for discharge to rehab today F/u in the office with Dr. Leigh's partner Dr Martinez next thursday Admission and Anticipated Discharge Date Admission Date: April 28, 2024 Supervising Physician Co-Signing Physician Notes I personally saw and evaluated the patient with Shameka Pavon PA-C and agree with the assessment and plan. 73 yo female s/p exploratory laparotomy sigmoid resection for perforated diverticulitis/abdominal washout, abdominal wall closure and colostomy creation, s/p IR drain She is stable for discharge from a surgical standpoint, will plan on tomorrow to rehab as there is no bed available today BID wet to dry dressing changes to incision Low fiber diet Continue both drains, she will be discharged with these Augmentin upon discharge F/u next week in clinic to have remaining jennifer removed Subjective Pt doing well. Offers no new complaints. Pain controlled. Tolerating a diet. + ostomy function. Physical Exam Physical Exam: awake/alert, no distress Respiratory: normal respiratory effort Gastrointestinal (Abdomen): Inspection/Auscultation: + abdominal surgical incision; abdomen not distended midline wound open superior and inferior w/ small amount of purulent drainage. + granulation tissue. Midline jennifer in mid portion of incision noted. MARIIA and IR drain w/ purulent output. Ostomy viable and functioning w/ + brown stool in bag Results & Data Vital Signs (Past 12 Hours) Vital Signs Temp Pulse Pulse Resp BP Pulse Ox O2 Del Method 05/13/24 07:45 98.2 F 69 16 142/84 H 95 Room Air 05/12/24 20:39 97.9 F 73 14 160/81 H 96 Room Air PG Care Time/CCT Total # of Minutes Spent Total Time Spent with Patient: Total time spent is greater than 50% in coordination of care (as documented) at patient's floor/unit and/or counseling patient: Coding Level of Care Code 05986 Post Operative Follow-Up Diagnoses Bowel perforation K63.1
[2024-05-13] MEDS: ACETAMINOPHEN 500 MG TAB PO SCH (14:46)
--- NOTE | 2024-05-14 05:52 | Surgery Progress Note ---
Date of Service May 14, 2024 Assessment & Plan (1) Bowel perforation: Plan: Patient is status post exploratory laparotomy secondary to feculent peritonitis; partial colectomy performed on 04/28/2024 (postop day #16) Patient is status post reexploration laparotomy with abdominal washout and creation of colostomy on 04/28/2024 (postop day #15) Continue analgesics as needed Continue diet as tolerated Continue antibiotics in the form of Zosyn while hospitalized with plans to transition to oral Augmentin at time of discharge (plans noted for 3 to 4-week course of oral antibiotics at time of discharge) Continue wet-to-dry dressing changes to abdominal wound Continue MARIIA drain as well as IR drain at time of discharge Plans for patient to have repeat CT scan of the abdomen and pelvis as an outpatient to assess intra-abdominal fluid collections (decision to discontinue drains will depend on output as well as findings on repeat scan) Continue at to ambulate as able Lovenox is in place for DVT prevention Tentative plans for discharge to rehab facility later today pt seen. doing ok/no new issues. [facility] in room stating no beds available today but will have one after 3 tomorrow. will plan d/c to [facility] tomorrow Admission and Anticipated Discharge Date Admission Date: April 28, 2024 Subjective Patient is currently resting comfortably in bed. She notes pain in her abdomen near her surgical incision. She denies any fevers, shakes, or chills. She denies any nausea or vomiting. She is voiding without difficulty. She does note that she is eating small amounts of solid food but reports she does not have much of an appetite. She notes that she has been able to ambulate with assistance. She denies any shortness of breath I discussed with scene shifter nurse attending the patient and no concerns are voiced at this time. Physical Exam Respiratory: normal respiratory effort; no respiratory distress and no labored breathing No wheezing or rhonchi noted. Patient is not using accessory muscles to aid in respiration Gastrointestinal (Abdomen): Abdomen is soft and nondistended. Patient has appropriate pain near her surgical incisions. Bowel sounds are present. Patient's incision is currently clean with 2 small open areas (1 near the superior aspect and one near the inferior aspect). Ostomy appears pink and viablethere is stool noted in the collection bag. Patient has a MARIIA drain in place draining purulent material. Patient has a percutaneous drain placed by IR in place which is also draining purulent material Results & Data Vital Signs (Past 12 Hours) Vital Signs Temp Pulse Resp BP Pulse Ox O2 Del Method 05/13/24 20:47 37.0 C 72 18 158/81 H 95 Room Air PG Care Time/CCT Total # of Minutes Spent Total Time Spent with Patient: Total time spent is greater than 50% in coordination of care (as documented) at patient's floor/unit and/or counseling patient: Coding Level of Care Code 58917 Post Operative Follow-Up Diagnoses Bowel perforation K63.1
--- NOTE | 2024-05-15 05:29 | Surgery Progress Note ---
Date of Service May 15, 2024 Assessment & Plan (1) Bowel perforation: Plan: Patient is status post exploratory laparotomy secondary to feculent peritonitis; partial colectomy performed on 04/28/2024 (postop day #17) Patient is status post reexploration laparotomy with abdominal washout and creation of colostomy on 04/29/2024 (postop day #16) Utilize analgesics as needed Continue diet as tolerated Continue antibiotics in the form of Zosyn while hospitalized; patient will be transitioned to oral Augmentin at time of discharge to complete a 3 to 4-week course of antibiotics Continue local wound care to abdominal wound with wet-to-dry dressings Continue both MARIIA drain as well as IR drain at time of discharge Repeat CT scan of the abdomen and pelvis will be performed as an outpatient at the time delineated by Dr. Leigh to assess intra-abdominal fluid collections (decision to discontinue drains will depend on output as well as findings on repeat scan) Continue at to ambulate as able Lovenox is in place for DVT prevention Patient was not discharged to rehab facility yesterday due to lack of bed availability; discharge to rehab once bed is available Admission and Anticipated Discharge Date Admission Date: April 28, 2024 Subjective Patient is resting comfortably in bed at the time of my exam. Some pain noted near surgical incision. She notes she is tolerating her diet without nausea or vomiting or worsening abdominal pain. She notes she is voiding without difficulty. She notes she has ambulated small amounts. No shortness of breath reported I discussed with film processing shift supervisor nurse attending the patientno fevers noted. No nausea or vomiting noted. No concerns or issues voiced at this time. Physical Exam Gastrointestinal (Abdomen): Abdomen is soft and nondistended. Appropriate pain noted near surgical incision. Her incision is overall clean, dry, and intact except for 2 small open areas1 at the top of her incision and 1 at the bottom of her incision. Ostomy is pink and viable with stool noted in the collection bag. MARIIA drain is in place as well as interventional radiology drainboth are draining purulent material. Results & Data Vital Signs (Past 12 Hours) Vital Signs Temp Pulse Resp BP Pulse Ox O2 Del Method 05/14/24 19:44 36.6 C 73 18 147/81 H 97 Room Air PG Care Time/CCT Total # of Minutes Spent Total Time Spent with Patient: Total time spent is greater than 50% in coordination of care (as documented) at patient's floor/unit and/or counseling patient: Coding Level of Care Code 78163 Post Operative Follow-Up Diagnoses Bowel perforation K63.1
--- NOTE | 2024-05-16 09:37 | Coding Query ---
PRESENT ON ADMISSION QUERY To promote full compliance with coding requirements relating to pateint care, physician participation is requested in all cases of laborer tan house uncertainty. Please assist us with the question(s) below: Please place an X within the parenthesis (x). The following diagnosis(es) listed in this patient's medical record require physician assistance to determine if they were present on admission (POA) or not. Please advise for each diagnosis whether it was present on admission, not present on admission, or if it was clinically undetermined. 1. SEPSIS (documentation begins on 04/28 Critical Care Consultation) ( x) Present On Admission ( ) Not Present On Admission ( ) Clinically Undetermined Thank you Brandi Roche *Definition of the present on admission (POA)-Present on admission is defined as present at the time the order for inpatient admission occurs. Conditions that develop during an outpatient encounter prior to a written order for inpatient admission (including emergency department, observation, or outpatient surgery) are considered present on admission. MTDD
--- NOTE | 2024-05-17 08:45 | Discharge Summary ---
Date of Service May 15, 2024 Admission HPI Per Admitting Provider This is a 73y F with PMH of HTN who presents to the [facility] ED on 04/28/24 with complaints of abdominal pain. Patient reports having constipation issues since Thursday. Then Thursday she developed "flu-like" symptoms associated with chills. Starting 2 days ago she developed abdominal discomfort associated with nausea/vomiting. Her abdominal pain worsened prompting her to see her PCP today who ordered an outpatient CT scan of the abdomen. The CT a/p was obtained that revealed findings are concerning for bowel perforation with free peritoneal stool and pneumoperitoneum. This is compatible with a colonic perforation, likely in the sigmoid colon. Some fluid collections appear partially encapsulated compatible with early abscess formation. The patient reports 9/10 abdominal pain in severity throughout the abdomen at this moment. + chills, no fevers. + nausea/vomiting/bloating. Denies chest pain or SOB. Had a couple BMs this AM. Last colonoscopy was >20 years ago. Never had surgery on abdomen. She has never been diagnosed with diverticulosis or diverticulitis to her knowledge. She had a couple sips of milkshake around 12. Principal Diagnosis perforated colon Discharge Exam Abdomen is soft and nondistended. Appropriate pain noted near surgical incision. Her incision is overall clean, dry, and intact except for 2 small open areas1 at the top of her incision and 1 at the bottom of her incision. Ostomy is pink and viable with stool noted in the collection bag. MARIIA drain is in place as well as interventional radiology drainboth are draining purulent material. Discharge Data Allergies Allergy/AdvReac Type Severity Reaction Status Date / Time latex Allergy Unknown little red Verified 05/18/24 10:34 itchy bumps Penicillins Allergy Unknown i was Verified 05/18/24 10:34 young, think itchy , swelling ? Consultations 04/28/24 15:10 Consult General Surgery Stat 04/28/24 20:01 Consult In Flight Refueling Manager Routine 04/30/24 10:42 Consult Hospitalist Routine Procedures Performed Operation Date: 04/29/24 07:00 Actual Procedures p Re-exploration Laparotomy, Abdominal Washout, Colostomy Creation(Not Applicable) - Omar Leigh DO Ordered Studies 05/07/24 15:28 CT Abd and Pelvis [CT abd pelvis oral con only] Routine 05/10/24 11:[address] periton/retro w/gdnce Routine Hospital Course (1) Bowel perforation: Patient is a pleasant 73 yo female that presented to the [facility] ER 04/28/24 with complaint of abdominal pain (see admission HPI for complete details). Abdominal/pelvis CT was reading findings concerning for bowel perforation with free peritoneal stool and pneumoperitoneum compatible with a colonic perforation likely in the sigmoid colon with early abscess formations. She was emergently taken to the operating room and underwent an Exploratory Laparotomy, partial colectomy, partial omentectomy, appendectomy, placement of Abthera wound vac and was left intubated and observed in the ICU overnight. She had a tariq catheter placed and NGT. She was again taken to the operating room on 04/29/24 for Re-exploration Laparotomy, Abdominal Washout, Colostomy Creation, MARIIA drain placement, faisal drain, all procedures done by Dr. Leigh. She was extubated in the operating room, recovered in PACU and sent back to her ICU room.Her NGT tube and tariq were removed. Her diet was slowly advanced and she started having colostomy stool output. Infectious disease, and the hospitalist were consulted to assist with medical management. On 05/07/24 she underwent an abd/pelvic CT scan which was showing fluid collections. On 05/10/24 Interventional radiology placed an IR drain. On 05/11/24 her faisal was removed and case management was working with the patient for rehab placement. On 05/15/24 the patient was deemed stable for discharge and was accepted to a rehab facility. She was discharged with her MARIIA and IR drain. Over the course of her hospital stay was given IV antibiotics, IV fluids, Physical therapy. At discharge she was given oral antibiotics, and a pain regimen. She was given instructions on how to care for her drains and colostomy, as well as follow up and return precautions. Total Time Total Time Spent Total Time Spent (In Minutes): 30 Discharge Plan Discharge Items Patient Disposition: Transfer Inpatient Rehab Fac Reason For Visit: S/P BOWEL RESECTION, INTUBATED Discharge Diagnosis: exploratory laparotomy abdominal washout sigmoid colon resection creation of colostomy Activity: Per Instructions section Lifting: No more than 10 pounds Bathing Comment: You can shower. No pools or baths for 2 weeks Exercise/Sports: Wait until after follow-up appointment Driving/Machine Use: no driving while taking narcotics for pain;wait until cleared by surgeon Non-emergency contact: Surgeon Call non-emergency contact if: you have any medication questions, your pain is concerning for you, you have a fever, your temperature is above 101.5, your wound has increased redness, your wound has increased drainage and your wound pain has increased Follow-up/Referrals: Omar Leigh, [Physician] - (Please call the office to see Dr. Leigh's partner Dr. Martinez next thursday05/18/24) Felix Trejo [Primary Care Provider] - Diet: Low Fiber Addtl Attending Provider Instructions: Please change midline dressing twice daily. With wet to dry, pack 4x4 gauze lightly moistened with normal saline in the inferior and superior portion of the abdominal wound, then cover with dry 4x4 gauze/ABD/and medipore tape.Continue to do this twice daily. Once daily place a drain sponge and medipore to both the MARIIA drain and IR drain Care for your ostomy as you have been shown prior to discharge Please care for your MARIIA surgical drain as instructed prior to discharge from the hospital. Keep to bulb suction. Empty drain 2-3x/daily and record output, bring a log with you to the office. Care for your interventional radiology drain as you have been instructed prior to discharge. Keep the 'accordion' pressed in to maintain suction. Flush the pigtail IR drain with 10mL of normal saline daily. Also monitor the output and bring a log with you to the clinic You may use both Tylenol and/or Ibuprofen if needed for additional pain control. Take per manufacturers instructions. Do not exceed >3grams of Acetaminophen within a 24hr time period. You have midline jennifer in place that will be removed at one of your follow up appointments Antibiotic Plan: You will be instructed to take Augmentin 875mg orally three times a day. You will need at least 3-4 weeks of antibiotics starting from 05/10 (4wks on 06/07), with the final duration depending on resolution of abscess on repeat imaging -At one of your outpatient office appointments we will discuss imaging and like ly repeat a CT scan with IV contrast in 3-4 weeks Pending Studies at Discharge: Yes Studies:: surgical pathology Stand-Alone Forms: My [facility] Skilled Items Patient informed of condition?: Yes DNR: No Discharge Level of Care: Acute rehab Communicable Disease: No Discharge Prognosis: Improving Lines: None Urinary Catheter: No Medications and DC Order Prescriptions: New acetaminophen [Children's Tylenol] 160 mg/5 mL Suspension 1,000 mg PO TID PRN (Reason: Abdominal Pain) 30 Days Qty: 1 0RF famotidine 40 mg Tablet 40 mg PO QPM 30 Days Qty: 30 0RF ibuprofen 600 mg Tablet 600 mg PO Q8H PRN (Reason: Abdominal Pain) 30 Days Qty: 1 0RF oxycodone 5 mg Tablet 5 mg PO Q4H PRN (Reason: moderate pain ) 10 Days Qty: 15 0RF oxycodone 5 mg Tablet 10 mg PO Q4H PRN (Reason: severe pain ) 10 Days Qty: 15 0RF diclofenac sodium [Voltaren Arthritis Pain] 1 % Gel 2 g EXT BID PRN (Reason: musculoskeletal pain) 30 Days Qty: 1 0RF amoxicillin-pot clavulanate 875-125 mg tablet 1 tab PO Q8H 21 Days Qty: 63 0RF Continued hydrochlorothiazide 12.5 mg capsule 12.5 mg PO QAM zolpidem 5 mg tablet 5 mg PO UD PRN (Reason: Sleep) garlic 400 mg Tablet,Delayed Release (Dr/Ec) 400 mg PO DAILY Patient Comments: afternoon Rx Instructions: Unable to verify OTC meds at this date/time. vitamin E 400 unit Tablet 0 mg PO DAILY Patient Comments: afternoon vitamin B complex Capsule 1 cap PO DAILY Patient Comments: afternoon Rx Instructions: Unable to verify OTC meds at this date/time. magnesium Tablet 1 tab PO DAILY Patient Comments: afternoon cinnamon bark [Cinnamon] 500 mg Capsule 500 mg PO DAILY Patient Comments: afternoon Rx Instructions: Unable to verify OTC meds at this date/time. cholecalciferol (vitamin D3) [Vitamin D3] 25 mcg (1,000 unit) Tablet 50 mcg PO DAILY Patient Comments: afternoon Rx Instructions: Unable to verify OTC meds at this date/time. apple cider vinegar 300 mg Tablet 300 mg PO DAILY Patient Comments: afternoon Rx Instructions: Unable to verify OTC meds at this date/time. resveratrol 50 mg Capsule 50 mg PO DAILY Patient Comments: afternoon Rx Instructions: Unable to verify OTC meds at this date/time. turmeric 400 mg Capsule 400 mg PO DAILY Patient Comments: gummy/ afternoon Rx Instructions: Unable to verify OTC meds at this date/time. Discharge Orders: Discharge Order (Routine); Ordered 05/15/24 Ordered By: Luis Valera/Other Patient Handouts: DVT Post Op Prevention Admission Data Admit Date/Time: 04/28/24 19:08 Attending Provider: Omar Leigh Admit Provider: Omar Leigh Primary Care Provider: Felix Trejo Other Providers: [facility]; Devon Nichols; Bruno Cuenca; Kelechi Grossman; Tod Garcia; Rosemary Shepherd Other Interventions: Discharge Summary Assessment (RN) Last Done: 05/15/24 11:58 Coding Level of Care Code 08123 IN/OBS DISCH 30 MIN/LESS Diagnoses Bowel perforation K63.1
== END 2024-05-15 15:41 | DRG 853 ==
LOC: ED 14:52 → OR 16:10 → 1E 19:08 → 2E 04-30 17:34 → 3W 05-06 19:07